=== PATIENT | male | born 1965 | race Caucasian/White ===

== ENCOUNTER 2017-03-02 20:16 | Inpatient (IN) | payer MEDICARE, MEDICAID ==
[2017-03-02] MEDS ORDERED: ACETAMINOPHEN 325 MG TABLET ONE ×2 (21:20→21:31)
[2017-03-02] MEDS ORDERED: ACETAMINOPHEN 325 MG TABLET PO ONE (21:22)
--- NOTE | 2017-03-02 21:28 | ERNOTE ---
Medical Problem HPI - Narrative Date of Service: 03/02/17 - General Chief Complaint: Fever Time Seen by Provider: 03/02/17 21:26 Source: patient Exam Limitations: no limitations - Immun/Allergies/Home Medications Immunizations: IMMUNIZATION HX Immunizations Up to Date Yes History of Influenza Vaccine Yes Hx Pneumococcal Vaccination Yes Allergies/Adverse Reactions: Allergies omeprazole Allergy (Verified 01/07/16 03:00) Home Medications: HOME MEDICATIONS Aspirin 325 mg PO DAILY 09/16/15 [Last Taken Unknown] Clopidogrel Bisulfate [Plavix] 75 mg PO DAILY 09/16/15 [Last Taken Unknown] Meclizine HCl [Antivert] 25 mg PO QID PRN #40 tab 09/19/15 [Last Taken Unknown] Famotidine 20 mg PO BID 01/07/16 [Last Taken Unknown] Glimepiride [Amaryl] 4 mg PO BID 01/07/16 [Last Taken 03/25/16 07:00] Lisinopril [Prinivil] 20 mg PO DAILY 01/07/16 [Last Taken Unknown] HYDROcodone/ACETAMINOPHEN [[place] 5-325] 1 - 2 tab PO Q6H PRN 03/25/16 [Last Taken Unknown] Insulin Glargine,Hum.rec.anlog [Lantus] 53 units SC BID 03/25/16 [Last Taken 07:00] Ciprofloxacin HCl [Cipro] 500 mg PO 03/02/17 [Last Taken Unknown] metroNIDAZOLE [Flagyl] 500 mg PO 03/02/17 [Last Taken Unknown] - History of Present History Narrative: HERE FOR WEAKNESS ,COUGH AND CONGESTION AND FEVER THAT HE SAYS JUST STARTED TODAY. HE DENIES KNOWN CONTACTS. HE DID HAVE SURGERY TO HIS RIGHT FOOT ON 14 FEBRUARY AT [facility] . HE HAS BEEN DOING HAVE OF THE DAILY DRESSING CHANGES AND SAYS HE HAS NOT NOTED ANY WORSENING. HE IS ON 2 ORAL ANTIBIOTICS STARTED A [facility] . HE THINKS ONE IS CIPRO. HE SOMETIMES COUGH TILL HE VOMITS. HE NO LONGER SMOKES. DENIES ABD PAINS. Review of Systems - Review of Systems Constitutional: Present: recent illness, fever, weakness EYE: Present: no symptoms reported ENT: Present: nose congestion Respiratory: Present: cough - WITH TUSSIVE EMESIS Cardiology: Present: no symptoms reported Gastrointestinal/Abdominal: Present: no symptoms reported Genitourinary: Present: no symptoms reported Musculoskeletal: Present: joint pain - RECENT FOOT SURGERY Neurological: Present: no symptoms reported Endocrine: Present: no symptoms reported Hematologic/Lymphatic: Present: no symptoms reported Psych: Present: no symptoms reported All Other Systems: All systems neg except as marked - Patient's Past Medical History Patient History - Medical: Diabetes Type 2 Insulin Dependent, GERD, Osteoporosis Patient History - Cardiac/Respiratory: Coronary Heart Disease, Hypertension, Myocardial Infarction, Peripheral Vascular Disease Patient History - Cancer: No Hx of Cancer Patient History - Surgical Procedures: Cholecystectomy, Cardiac stent, Other, Orthopedic Patient History - Other: None - Family History Mother Family History - Medical: Diabetes Type 2 Insulin Dependent Family History - Cardiac/Respiratory: No pertinent hx Father Family History - Medical: Family History - Cardiac/Respiratory: History Unknown - Social History Living Situations: home Abuse History: No History of abuse Psych History: No pertinent hx Smoking Status: Former smoker Have you smoked in the past 12 months: No Do you dip or chew tobacco: Yes Patient requests Smoking Cessation Consult: No Initiate information on Smoking Cessation: No Alcohol Use: none Drug Use: none - Immunizations Immunizations Up to Date: Yes Hx Pneumococcal Vaccination: Yes History of Influenza Vaccine: Yes Physical Exam - Physical Exam General Appearance: Present: wd/wn, alert, mild distress - febrile @38.5 with tachycardia Eye Exam: Normal inspection: bilateral, PERRL: bilateral, EOMI: bilateral Ears, Nose, Throat: Present: normal except -, nasal congestion Neck: Present: normal inspection, nontender Respiratory: Present: no respiratory distress, normal breath sounds, no accessory muscle use, chest nontender, lungs clear Cardiovascular/Chest: Present: no murmur, normal peripheral pulses, tachycardia Gastrointestinal/Abdominal: Present: normal bowel sounds, nontender, soft, no organomegaly Back Exam: Present: normal inspection, no CVA tenderness Extremity Exam: Present: other - HE HAS LEFT BKA AND BANDAGE TO RIGHT FOOT . WHEN REMOVED HE HAS A PARTIALLY DEHIESCED WOUND TO MEDIAL ASPECT SURROUNDED BY ERYTHEMA WITH NO PUS DRAINAGE. HE SAYS IT LOOKS THE SAME IT HAS WHEN HE CHANGES DRESSINGS. THERE IS NO ASCENDING STREAKING UP HIS ANKLE OR LEG. Neurological Exam: Present: alert, oriented Skin Exam: Present: warm/dry ED Progress - Results and Orders Patient's Lab Results:: I have reviewed the patient's lab results. Results and Orders: WBC = 12.5 WITH 89 SEGS, K+ = 3.3, LACTIC = 2.4, UA WITH + GLUC AND TRACE KETONE. - Vital Signs Patient's Vital Signs:: I have reviewed the patient's vital signs. Vital Signs: Vital Signs 03/02/17 20:20 Temperature 38.5 C H Pulse Rate 130 H Respiratory 22 H Rate Blood Pressure 113/66 O2 Sat by Pulse 100 Oximetry - X-Ray X-Ray #1 X-Ray: chest Interpretation: Interp. by me - LLL BASILAR INFILTRATE. - Progress/Reassessment Chief Complaint: Fever Plan - Plan Plan: WITH HOSPITALIST ANS SHE WILL SEE IN THE ER TO ADMIT. Departure - Departure Clinical Impression: Fever Qualifiers: Fever type: unspecified Qualified Code(s): R50.9 - Fever, unspecified Pneumonia Qualifiers: Pneumonia type: due to unspecified organism Laterality: left Lung location: lower lobe of lung Qualified Code(s): J18.1 - Lobar pneumonia, unspecified organism Sepsis Qualifiers: Sepsis type: sepsis due to unspecified organism Qualified Code(s): A41.9 - Sepsis, unspecified organism Disposition: [facility] Condition: Fair
[2017-03-02] MEDS: NORMAL SALINE 1,000 ML IV PRN ×3 (21:29→23:52)
[2017-03-02 21:36] LABS: Hematocrit 34.5 % (42.0-52.0); Hemoglobin 11.8 gm/dL (13.5-18.0); Mean Corpuscular Hemoglobin 29.4 pg (27-31); Mean Corpuscular Hgb Conc 34.2 g/dl (32-36); Platelet Count 295 K/mm3 (150-450); Red Blood Count 4.01 M/mm3 (4.7-6.0); Red Cell Distribution Width 13.5 % (11.5-14.0); White Blood Count 12.9 K/mm3 (4.0-10.5)
[2017-03-02 21:48] LABS: Albumin * 2.8 gm/dl (3.4-5.0); Anion Gap 12.9 mmol/L (6.8-13.8); BUN/Creatinine Ratio 9.4 (9.0-21.6); Bilirubin, Total 0.7 mg/dL (0.0-1.1); Ca. Corrected For Albumin 8.7 mg/dL (8.4-10.2); Calcium * 8.1 mg/dL (7.9-10.9); Carbon Dioxide 26.4 mmol/L (24-32.6); Potassium 3.3 mmol/L (3.4-4.6); Total Cells Counted 100; Total Protein 7.1 gm/dL (6.2-8.2)
[2017-03-02 21:52] LABS: Band 1 % (0-2.0); Lymphocyte 5 % (20-51); Monocyte 5 % (0-9); Neutrophil 89 % (42-75); Neutrophil # 11.5 K/mm3 (1.3-6.0); Platelet Estimate Normal (NORMAL); RBC Morphology Normal (NORMAL)
[2017-03-02] MEDS ORDERED: NORMAL SALINE 1,000 ML IV ONE (22:00)
[2017-03-02] MEDS ORDERED: ONDANSETRON HCL/PF 2 MG/ML VIAL IV ONE (22:00)
[2017-03-02] MEDS ORDERED: ONDANSETRON HCL/PF 2 MG/ML VIAL ONE (22:13)
--- OUTSIDE RECORDS SUMMARY | 2017-03-02 22:15 | XMS REPORT | CCD ---
:1965 Author Name JLUIS SIU Address [address] Unavailable [place], [place] [id number] Care Team Providers Name Role Phone FAVIAN BARTH Attending Physician Unavailable Vital Signs Unknown. Allergies Allergy Code Allergy Type Reaction Status CIPRO HC 0 Drug allergy (disorder) Active Procedures Procedure Code Procedure Type Date TSH 41060547 SNOMED CT 11/15/2013 LIPID PANEL 51411848 SNOMED CT 11/15/2013 GLYCOSYLATED HGB 579839496 SNOMED CT 11/15/2013 History of Immunizations Unknown. Problems Problem Code Start Date Resolved Date Status CHEST PRESSURE 17683136 05/21/2012 Active DIABETES MELLITUS 46441086 08/07/2011 Active BP (HIGH BLOOD PRESSURE) 78199254 Active DYSLIPIDEMIA 283878549 Active GASTRITIS 2408936 02/21/2012 Active CIGARETTE SMOKER 66066531 Active FRACTURE OF HUMERUS, DISTAL, CLOSED 442609527 09/08/2011 Active SUICIDAL IDEATIONS 0176627 10/02/2011 Active CONTUSION OF UPPER ARM 28261710 10/24/2011 Active ARM PAIN 414917023 11/22/2011 Active Pleurisy without mention of effusion or 892234411 07/10/2013 Active current tuberculosis MONOPLEGIA OF LOWER LIMB 17602 07/06/2012 Active Results COMPREHENSIVE METABOLIC PANEL Test Name Code Test Result Test Units Test Date/Time GLUCOSE 326.0000 mg/dL 11/15/2013 11:57 SODIUM 135.0000 mmol/L 11/15/2013 11:57 POTASSIUM 4.4000 mmol/L 11/15/2013 11:57 CHLORIDE 100.0000 mmol/L 11/15/2013 11:57 CO2 22.0000 mmol/L 11/15/2013 11:57 BUN 16.0000 mg/dL 11/15/2013 11:57 CREATININE 0.9000 mg/dL 11/15/2013 11:57 BUN/CREAT 17.8000 11/15/2013 11:57 CALCIUM 9.2000 mg/dL 11/15/2013 11:57 TOTAL BILI 0.6000 mg/dL 11/15/2013 11:57 TOTAL PROTEIN 8.1000 g/dL 11/15/2013 11:57 ALBUMIN 3.9000 g/dL 11/15/2013 11:57 A/G RATIO 0.9000 11/15/2013 11:57 ALKALINE PHOS 200.0000 IU/L 11/15/2013 11:57 AST/SGOT 16.0000 IU/L 11/15/2013 11:57 ALT/SGPT 32.0000 IU/L 11/15/2013 11:57 ANION GAP 17.4000 mmol/L 11/15/2013 11:57 AGE 47.0000 YEARS 11/15/2013 11:57 GFR 96.1300 ml/min 11/15/2013 11:57 CBC Test Name Code Test Result Test Units Test Date/Time WBC 6690-2 9.2000 K/uL 11/15/2013 11:57 RBC 789-8 5.5600 M/uL 11/15/2013 11:57 HEMOGLOBIN 718-7 16.0000 g/dL 11/15/2013 11:57 HEMATOCRIT 45.2000 % 11/15/2013 11:57 MCV 81.3000 fL 11/15/2013 11:57 MCH 28.8000 PG 11/15/2013 11:57 MCHC 35.4000 G/DL 11/15/2013 11:57 RDW-SD 38.8000 FL 11/15/2013 11:57 RDW-CV 13.2000 % 11/15/2013 11:57 PLATELETS 315.0000 K/UL 11/15/2013 11:57 MPV 9.1000 FL 11/15/2013 11:57 %GRAN 66.9000 % 11/15/2013 11:57 %LYMPH 24.0000 % 11/15/2013 11:57 %MONO 7.1000 % 11/15/2013 11:57 %EOS 1.6000 % 11/15/2013 11:57 %BASO 0.4000 % 11/15/2013 11:57 #GRAN 6.1400 K/UL 11/15/2013 11:57 #LYMPH 2.2000 K/UL 11/15/2013 11:57 #MONO 0.6500 K/UL 11/15/2013 11:57 #EOS 0.1500 K/UL 11/15/2013 11:57 #BASO 0.0400 K/UL 11/15/2013 11:57 SLIDE REVIEWED? NOT INDICATED N/A 11/15/2013 11:57 MANUAL DIFF NOT INDICATED N/A 11/15/2013 11:57 LIPID PANEL Test Name Code Test Result Test Units Test Date/Time CHOLESTEROL 2093-3 247.0000 mg/dL 11/15/2013 11:57 TRIGLYCERIDES 2571-8 577.0000 mg/dL 11/15/2013 11:57 HDL 2085-9 37.0000 mg/dL 11/15/2013 11:57 CHOL/HDL 9830-1 6.7000 11/15/2013 11:57 LDL COMMENT: CALCULATED LDL IS NOT APPROPRIATE N/A 11/15/2013 11:57 WHEN ` SPECIMENS HAVE A TRIGLYCERIDE N/A 11/15/2013 11:57 CONCENTRATIO `` GREATER THAN 400 MG/DL. DIRECT LDL N/A 11/15/2013 11:57 ``` CHOLESTEROL SHOULD BE REQUESTED N/A 11/15/2013 11:57 LDL 9-1 N/A N/A 11/15/2013 11:57 GLYCOSYLATED HGB Test Name Code Test Result Test Units Test Date/Time HA1c% 4548-4 10.1000 % 11/15/2013 11:57 eAG 243.0000 mg/dL 11/15/2013 11:57 TSH Test Name Code Test Result Test Units Test Date/Time TSH 3016-3 2.1130 uIU/ml 11/15/2013 11:57 Medications Unknown. Medications Administered Unknown. Encounters Encounter Diagnosis Diagnosis Code Start Date HYPERLIPIDEMIA NEC NOS 2724 11/15/2013 Social History Smoking Status Code Start Date End Date Current every day smoker 326241575 Patient Decision Aids Unknown. Instructions You were admitted to [facility] on 11/15/2013 with a principle diagnosis of HYPERLIPIDEMIA NEC NOS. You had the following tests done:LLKGSNSESQRSYDUGEXWLFKZGDFJYPDAPDQPXTCY-PZNKB-VHYRNPWZOTXTGL%GRAN%LYMPH% MONO%EOS%BASO#GRAN#LYMPH# MONO#EOS#BASOSLIDE REVIEWED?MANUAL BEFFEDPBNGRTNQVTULSUHXXYXZPPUPLTWKNW5DXXOKOIIITVHOKHI/CREATCALCIUMTOTAL BILITOTAL PROTEINALBUMINA/G RATIOALKALINE PHOSAST/SGOTALT/SGPTANION NGZJIPRVOPH5j% eAGCHOLESTEROLTRIGLYCERIDESLDL COMMENT:``````HDLLDLCHOL/HDLTSH You were discharged from [facility] on 11/15/2013. Should you have any questions prior to discharge, please contact a member of your healthcare team. If you have left the hospital and have any questions, please contact your primary care physician. Chief Complaint and Reason For Visit Unknown. Function Status Unknown. Plan of Care Unknown. Referral/Transition of Care Unknown.
--- OUTSIDE RECORDS SUMMARY | 2017-03-02 22:15 | XMS REPORT | CCD ---
:1965 Author Name GABINO HADDAD Address [address] [facility] Unavailable [place], [place] [phone] Care Team Providers Name Role Phone BERNARDO GAYTAN, LEILA WARD Attending Physician Unavailable LEILA CHANG MD Er Physician 1 Unavailable ARIANNA Butler Registered Nurse Unavailable Vital Signs Unknown. Allergies Allergy Code Allergy Type Reaction Status CIPRO HC 0 Drug allergy (disorder) Active Procedures Procedure Code Procedure Type Date INJECT INFUSE NEC 9929 ICD-9 CM, Volume 3 09/29/2013 INJECT INFUSE NEC 9929 ICD-9 CM, Volume 3 09/29/2013 History of Immunizations Unknown. Problems Problem Code Start Date Resolved Date Status CHEST PRESSURE 78585762 05/21/2012 Active DIABETES MELLITUS 42044412 08/07/2011 Active BP (HIGH BLOOD PRESSURE) 69534150 Active DYSLIPIDEMIA 237186772 Active GASTRITIS 7363767 02/21/2012 Active CIGARETTE SMOKER 83327105 Active FRACTURE OF HUMERUS, DISTAL, CLOSED 296685584 09/08/2011 Active SUICIDAL IDEATIONS 7751788 10/02/2011 Active CONTUSION OF UPPER ARM 87557273 10/24/2011 Active ARM PAIN 012868540 11/22/2011 Active Pleurisy without mention of effusion or 661846401 07/10/2013 Active current tuberculosis MONOPLEGIA OF LOWER LIMB 22693 07/06/2012 Active Results Unknown. Medications Medication Code Dose Units Frequency Route Modification Start Stop Date/Time Date/Time Hydrocodone 203326 2 EACH Every 4hr ORAL Bitart/Acet as needed 325MG-5MG Oral Tablet TRICORE 0 HIGH BLOOD 0 PRESSURE Humalog 824360 30 EACH Twice a SUBCUTAN 100U/ML day EOUS Subcutaneous Suspension Humalog 575623 SCALE EACH Three SUBCUTAN 100U/ML times a EOUS Subcutaneous day Suspension Humalog 879489 36 UNITS Daily SUBCUTAN 100U/ML EOUS Subcutaneous Suspension LANTUS 0 50 UNIT Twice a SUBCUTAN INSULIN day EOUSLY Zantac 150MG 374150 150 MILLIGRA As needed ORAL Oral Tablet MS Aspirin 81MG 726402 2 TAB Daily ORAL Oral Tablet DEPRESSION 0 MED Medications Administered Unknown. Encounters Encounter Diagnosis Diagnosis Code Start Date UNSPECIFIED DENTAL CARIES 98136 09/29/2013 Social History Smoking Status Code Start Date End Date Unknown if ever smoked 292185003 Patient Decision Aids Unknown. Instructions You were admitted to [facility] on 09/29/2013 with a principle diagnosis of UNSPECIFIED DENTAL CARIES. You had the following procedures done:INJECT INFUSE NECINJECT INFUSE NEC You were discharged from [facility] on 09/29/2013. Should you have any questions prior to discharge, please contact a member of your healthcare team. If you have left the hospital and have any questions, please contact your primary care physician. Chief Complaint and Reason For Visit Chief Complaint Date of Onset DENTAL PAIN Function Status Unknown. Plan of Care Unknown. Referral/Transition of Care Unknown.
--- OUTSIDE RECORDS SUMMARY | 2017-03-02 22:15 | XMS REPORT | CCD ---
:1965 Author Name GABINO HADDAD Address [address] [facility] Unavailable [place], [place] [phone] Care Team Providers Name Role Phone BERNARDO [...] Start Date Resolved Date Status CHEST PRESSURE 44044182 05/21/2012 Active DIABETES MELLITUS 72309447 08/07/2011 Active BP (HIGH BLOOD PRESSURE) 21674675 Active DYSLIPIDEMIA 180780241 Active GASTRITIS 1240623 02/21/2012 Active CIGARETTE SMOKER 89464172 Active FRACTURE OF HUMERUS, DISTAL, CLOSED 750815343 09/08/2011 Active SUICIDAL IDEATIONS 5717026 10/02/2011 Active CONTUSION OF UPPER ARM 78721281 10/24/2011 Active ARM PAIN 989371403 11/22/2011 Active Pleurisy without mention of effusion or 743442492 07/10/2013 Active current tuberculosis MONOPLEGIA OF LOWER LIMB 96352 07/06/2012 Active Results Unknown. Medications Medication Code Dose Units Frequency Route Modification Start Stop Date/Time Date/Time Hydrocodone 131106 2 EACH Every 4hr ORAL Bitart/Acet as needed 325MG-5MG Oral Tablet TRICORE 0 HIGH BLOOD 0 PRESSURE Humalog 686247 30 EACH Twice a SUBCUTAN 100U/ML day EOUS Subcutaneous Suspension Humalog 186404 SCALE EACH Three SUBCUTAN 100U/ML times a EOUS Subcutaneous day Suspension Humalog 511656 36 UNITS Daily SUBCUTAN 100U/ML EOUS Subcutaneous Suspension LANTUS 0 50 UNIT Twice a SUBCUTAN INSULIN day EOUSLY Zantac 150MG 607320 150 MILLIGRA As needed ORAL Oral Tablet MS Aspirin 81MG 389631 2 TAB Daily ORAL Oral Tablet DEPRESSION 0 MED Medications Administered Unknown. Encounters Encounter Diagnosis Diagnosis Code Start Date UNSPECIFIED DENTAL CARIES 18032 09/29/2013 Social History Smoking Status Code Start Date End Date Unknown if ever smoked 523117855 Patient Decision Aids Unknown. Instructions You were admitted to [facility] on 09/29/2013 with a principle diagnosis of UNSPECIFIED DENTAL CARIES. You had the following procedures done:INJECT INFUSE NECINJECT INFUSE NEC You were discharged from [facility] on 09/29/2013. Should you have any questions [...]
--- OUTSIDE RECORDS SUMMARY | 2017-03-02 22:15 | XMS REPORT | Continuity of Care Document ---
:1965 Author Organization [facility] ([facility]) Address [address] [place] [address] Phone [phone] Care Team Providers Name Role Phone CareyAnnika Primary Care Provider [phone] Source Comments This disclosure is being made pursuant to the Care Everywhere program, applicable federal and state laws, and may not contain all informaitonavailable regarding this patient.[facility] ([facility]) Active Allergies and Adverse Reactions Allergen Noted Date Severity Reactions Comments Omeprazole 07/27/2009 Renal failure AIN. Current Medications Prescription Sig. Disp. Refills Start Date End Date Status lisinopril 20 mg Take 20 mg by mouth Active tablet daily. Indications: HYPERTENSION CLOPIDOGREL BISULFATE Take 75 mg by mouth Active (PLAVIX PO) daily aspirin 325 mg tablet Take 325 mg by mouth Active daily famotidine 20 mg Take 20 mg by mouth as Active tablet needed. insulin glargine Inject 50 Units Active (LanTUS) 100 unit/mL subcutaneously at injection vial bedtime . insulin glargine Inject 45 Units Active (LanTUS) 100 unit/mL subcutaneously daily . injection vial omega-3 fatty acids Take 1,000 mg by mouth Active 1,000 mg capsule daily meclizine 25 mg Take 25 mg by mouth 4 Active tablet times daily as needed. glimepiride 4 mg 1 tablet daily. 5 03/15/2016 Active tablet PREGABALIN (LYRICA Take by mouth 2 times Active PO) daily. insulin degludec Inject 104 Units Active (TRESIBA FLEXTOUCH subcutaneously at U-100) 100 unit/mL (3 bedtime. mL) inpn Active Problems Problem Noted Date HTN (hypertension) 12/15/2015 GERD (gastroesophageal reflux disease) 12/15/2015 Coronary artery disease involving crow coronary artery of crow heart 12/13 with angina pectoris (3 coronary stents Fall 2014) Type 1 diabetes mellitus with circulatory complication, diagnosis about 2015 Preop cardiovascular exam 10/24/2015 Headache(784.0) 09/16/2015 Left arm numbness 09/16/2015 Left arm weakness 09/16/2015 Left-sided weakness 09/16/2015 Cellulitis 04/05/2015 Overview: Cellulitis of bka stump Numbness in right leg 08/30/2014 Weakness of right leg 08/27/2014 Wound dorsum of Rt foot 04/20/2013 Humerus distal fracture 01/05/2013 Wound infection after surgery 12/18/2012 Below knee amputation status 12/04/2012 Cellulitis of foot 09/26/2012 Lower extremity weakness 07/07/2012 Hypertension 07/07/2012 Hyperlipidemia 07/07/2012 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 Background diabetic retinopathy(362.01) 05/30/2011 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 Resolved Problems Problem Noted Date Resolved Date Diabetic foot infection 11/18/2012 01/27/2013 Diabetes mellitus 09/26/2012 01/27/2013 Pain in limb 12/20/2011 01/27/2013 Other physical therapy 12/20/2011 01/02/2012 Nausea with vomiting 05/22/2011 01/02/2012 Chest pain, unspecified 04/13/2011 01/02/2012 Pain in joint, lower leg 03/07/2010 01/27/2013 Other physical therapy 03/07/2010 01/02/2012 Immunizations Name Dates Previously Given Next Due Influenza 07/27/2009 Influenza, PF 10/29/2012 Pneumococcal Polysaccharide, PPSV23 (Pneumovax 23) 07/27/2009 Tdap 10/26/2010 Social History Tobacco Use Types Packs/Day Years Used Date Light Tobacco Smoker 3 6 Smokeless Tobacco: Current User Snuff, Chew Tobacco Cessation:Counseling Given: Yes Comments:quit in 2003 after 80pyh; started smoking again last week of November,, 2 cigs/d Alcohol Use Drinks/Week oz/Week Comments No 0 Standard drinks or equivalent 0.0 Last Filed Vital Signs Vital Sign Reading Time Taken Blood Pressure 129/77 12/18/2015 11:07 AM INSTRUMENT REPAIR TECHNICIAN Pulse 94 12/18/2015 11:07 AM INSTRUMENT REPAIR TECHNICIAN Temperature 36.5 C (97.7 F) 12/18/2015 11:07 AM INSTRUMENT REPAIR TECHNICIAN Respiratory Rate 16 09/16/2015 6:41 PM INSTRUMENT REPAIR TECHNICIAN Height 1.827 m (5' 11.93") 12/18/2015 11:07 AM INSTRUMENT REPAIR TECHNICIAN Weight 97.523 kg (215 lb) 12/18/2015 11:07 AM INSTRUMENT REPAIR TECHNICIAN Body Mass Index 29.22 12/18/2015 11:07 AM INSTRUMENT REPAIR TECHNICIAN Oxygen Saturation 98% 12/18/2015 11:07 AM INSTRUMENT REPAIR TECHNICIAN Plan of Care Patient Goal Type Goal Lifestyle Quit smoking / using tobacco Date Type Specialty Providers Description 04/03/2017 Appointment Orthopaedic Kip Farias MD Subj: Appointment [address] [place] [address] [phone] (Fax) Health Maintenance Due Date Last Done Comments Hepatitis B Vaccine ( - 1965 Primary Series) MMR Vaccine 12/28/1983 DIABETIC: Foot Exam 11/07/2012 11/07/2011, 11/07/2011 DIABETIC: Retinal Eye Exam 12/24/2012 12/25/2011 DIABETIC: Microalbumin 10/29/2013 10/29/2012, Additional history exists 06/25/2012, 01/02/2012 Colonoscopy 2015 Prostate Cancer Screening 12/28/2015 DIABETIC: Hemoglobin A1C 06/19/2016 12/18/2015, Additional history exists 09/17/2015, 08/30/2014 DIABETIC: Cholesterol 09/17/2016 09/17/2015, Additional history exists 10/29/2012, 07/08/2012 Diabetic: Hdl 09/17/2016 09/17/2015, Additional history exists 10/29/2012, 07/08/2012 Diabetic: Ldl 09/17/2016 09/17/2015, Additional history exists 10/29/2012, 09/25/2012 DIABETIC: Triglycerides 09/17/2016 09/17/2015, Additional history exists 10/29/2012, 07/08/2012 Influenza Vaccine: Seasonal 05/13/2017 10/29/2012, (Season Ended) 2009 Td Vaccine 10/26/2020 10/26/2010 Pneumococcal Vaccine Completed 07/27/2009 Tdap Vaccine Completed 10/26/2010 Results from Last 3 Months Not on file
--- OUTSIDE RECORDS SUMMARY | 2017-03-02 22:15 | XMS REPORT | CCD ---
:1965 Author Name JLUIS SIU Address [address] Unavailable [place], [place] [phone] Care Team Providers Name Role Phone FAVIAN BARTH Attending Physician Unavailable Vital Signs Unknown or Not Available. Allergies Allergy Code Allergy Type [facility] Drug allergy Active Procedures Unknown or Not Available. History of Immunizations Unknown or Not Available. Problems Problem Code Start Date Resolved Date Status CHEST PRESSURE 23062070 05/21/2012 Active DIABETES MELLITUS 15670415 08/07/2011 Active BP (HIGH BLOOD PRESSURE) 51894171 Active DYSLIPIDEMIA 584402403 Active CIGARETTE SMOKER 15772358 Active FRACTURE OF HUMERUS, DISTAL, CLOSED 634177790 09/08/2011 Active SUICIDAL IDEATIONS 1636384 10/02/2011 Active CONTUSION OF UPPER ARM 59570290 10/24/2011 Active ARM PAIN 992217588 11/22/2011 Active GASTRITIS 3405476 02/21/2012 Active MONOPLEGIA OF LOWER LIMB 20655 07/06/2012 Active Pleurisy without mention of effusion or 144496344 07/10/2013 Active current tuberculosis Results Unknown or Not Available. Medications Unknown or Not Available. Medications Administered Unknown or Not Available. Encounters Encounter Diagnosis Diagnosis Code Start Date PAIN IN LIMB 7295 04/29/2014 Social History Smoking Status Code Start Date End Date Current every day smoker 655130488 Patient Decision Aids Unknown or Not Available. Discharge Instructions You were admitted to [facility] on 04/29/2014 with a principal diagnosis of PAIN IN LIMB. You had the following procedures done:DX ULTRASOUND-VASCULAR You were discharged from [facility] on 04/29/2014. Should you have any questions prior to discharge, please contact a member of your healthcare team. If you have left the hospital and have any questions, please contact your primary care physician. Chief Complaint and Reason For Visit Unknown or Not Available. Function Status Unknown or Not Available. Plan of Care Unknown or Not Available. Referral/Transition of Care Unknown or Not Available.
[2017-03-02 22:24] LABS: Urine Bilirubin Negative (NEGATIVE); Urine Blood 50 /ul (NEGATIVE); Urine Ketone 5 mg/dL (NEGATIVE); Urine Nitrite Negative (NEGATIVE); Urine Protein 100 mg/dL (NEGATIVE); Urine Specific Gravity 1.025 SP.GR. (1.005-1.030); Urine Urobilinogen Normal (NORMAL)
[2017-03-02 22:35] LABS: Urine Appearance Clear; Urine Bacteria TRACE; Urine Color Dark Yellow; Urine RBC None Seen /hpf (0-5); Urine WBC None Seen /hpf (0-5)
[2017-03-02 22:36] LABS: Urine Fine Granular Cast 0-5 /LPF
[2017-03-02] MEDS: LEVOFLOXACIN/D5W 750 MG/150 ML BAG IV SCH (23:06)
--- OUTSIDE RECORDS SUMMARY | 2017-03-02 23:19 | XMS REPORT | Continuity of Care Document ---
:1965 Author Organization [facility] ([facility]) Address [address] [place] [address] Phone [phone] Care Team Providers Name Role Phone CareyAnnika Primary Care Provider [phone] Source Comments This disclosure is being made pursuant to the Care Everywhere program, applicable federal and state laws, and may not contain all informaitonavailable regarding this patient.[facility] ([facility]) Active Allergies and Adverse Reactions Allergen Noted [...] reflux disease) 12/15/2015 Coronary artery disease involving circle coronary artery of circle heart 12/13 with angina pectoris (3 coronary [...] Taken Blood Pressure 129/77 12/18/2015 11:07 AM PLACEMENT SECRETARY Pulse 94 12/18/2015 11:07 AM PLACEMENT SECRETARY Temperature 36.5 C (97.7 F) 12/18/2015 11:07 AM PLACEMENT SECRETARY Respiratory Rate 16 09/16/2015 6:41 PM PLACEMENT SECRETARY Height 1.827 m (5' 11.93") 12/18/2015 11:07 AM PLACEMENT SECRETARY Weight 97.523 kg (215 lb) 12/18/2015 11:07 AM PLACEMENT SECRETARY Body Mass Index 29.22 12/18/2015 11:07 AM PLACEMENT SECRETARY Oxygen Saturation 98% 12/18/2015 11:07 AM PLACEMENT SECRETARY Plan of Care Patient Goal Type Goal Lifestyle Quit smoking / using tobacco Date Type Specialty Providers Description 04/03/2017 Appointment Orthopaedic Kip Farias MD Subj: Appointment [address] [place] [address] [phone] (Fax) Health Maintenance Due Date Last Done [...]
[2017-03-02] MEDS ORDERED: VANCOMYCIN HCL 1.5 GM in DEXTROSE 5 % IN WATER 500 ML IV SCH ×2 (23:30)
[2017-03-03] MEDS ORDERED: POTASSIUM CHLORIDE 20 MEQ TABLET.SA PO ONE (00:17)
--- NOTE | 2017-03-03 00:26 | HP ---
<Symone Godinez - Last Filed: 03/03/17 07:26> Chief Complaint - Chief Complaint Date of Service: 03/03/17 Time of Service: 00:24 Chief Complaint: " Dizziness, Coughing". Source of HPI- Pt reliable, ER provider report. History of Present Illness: Mr. Puentes is a 51-yr-old WM who receives his primary care at the [facility] in [place]. His PMH involves: CVA, DM II (Poorly Controlled), CAD; s/p PTCA & Stents. LT BKA, Kidney Stone. Pt states that he had been in his normal health until Friday 03/02 when he begun feeling dizzy at around 02.00 am. The dizziness gave him the 'sensation of room spinning.' He stayed in bed most of the day on Friday. He also reports having a cough that has been progressively getting worse for the last two days. He coughs up mostly white/ruiz phlegm. He denies feeling SOB and no pain with inspiration and expiration. He did have a fever last night that was over 100, but cannot recall the value exactly. He says that he got tired of feeling sick today and he called the EMS, & was brought to the [facility] ER. Off note, he has Diabetic ulcer on RT foot and he underwent Toe Amputation In October 2016 at the [facility]. He is followed by their Podiatry Dr. Sadia Sarabia. On 02/14, he was admitted again at the [facility] for cellulitis in addition to a non-healing diabetic ulcer on RT foot. X-ray and MRI obtained in that hospitalization did not demonstrate Osteomyelitis. Pt reports that he was started on Oral Antibiotics (unsure but thinks Cipro & Flagyl) along with local wound care one week later. On Exam, he is noted to have erythema on the RT foot and a tunneling wound with serosanguinous drainage. During evaluation at the ED tonight, CXR obtained showed he had LLL Pneumonia. He was also found to be febrile with a temp of 39.4 and tachycardic. He had an elevated WBC of 12,900 with a Left Shift and Lactic Acid of 2.4. The inflammatory markers involving CRP & ESR were elevated at 19.8 & 63. No imaging of RT foot pending. Pt will need to be admitted inpatient for a minimum of 2 midnights due to Sepsis secondary to Pneumonia, Cellulitis of RT Foot, & Possible Osteomyelitis of the RT foot with requires further evaluation and treatment. - Patient's Past Medical History Patient History - Medical: Diabetes Type 2 Insulin Dependent, GERD, Osteoporosis Patient History - Cardiac/Respiratory: Coronary Heart Disease, Hypertension, Myocardial Infarction, Peripheral Vascular Disease Patient History - Cancer: No Hx of Cancer Patient History - Surgical Procedures: Cholecystectomy, Cardiac stent, Other, Orthopedic Patient History - Other: None - Family History Mother Family History - Medical: Diabetes Type 2 Insulin Dependent Family History - Cardiac/Respiratory: No pertinent hx Father Family History - Medical: Family History - Cardiac/Respiratory: History Unknown - Social History Living Situations: home Abuse History: No History of abuse Psych History: No pertinent hx Smoking Status: Former smoker Have you smoked in the past 12 months: No Do you dip or chew tobacco: Yes Patient requests Smoking Cessation Consult: No Initiate information on Smoking Cessation: No Alcohol Use: none Drug Use: none - Immunizations Immunizations Up to Date: Yes Hx Pneumococcal Vaccination: Yes History of Influenza Vaccine: Yes Immunizations: IMMUNIZATION HX Immunizations Up to Date Yes History of Influenza Vaccine Yes Hx Pneumococcal Vaccination Yes Allergies/Adverse Reactions: Allergies Allergy/AdvReac Type Severity Reaction Status Date / Time omeprazole Allergy Verified 01/07/16 03:00 Home Medications: HOME MEDICATIONS RX: Aspirin 325 mg PO DAILY 09/16/15 [Last Taken Unknown] RX: Clopidogrel Bisulfate [Plavix] 75 mg PO DAILY 09/16/15 [Last Taken Unknown] RX: Meclizine HCl [Antivert] 25 mg PO QID PRN #40 tab 09/19/15 [Last Taken Unknown] RX: Famotidine 20 mg PO BID 01/07/16 [Last Taken Unknown] RX: Glimepiride [Amaryl] 4 mg PO BID 01/07/16 [Last Taken 03/25/16 07:00] RX: Lisinopril [Prinivil] 20 mg PO DAILY 01/07/16 [Last Taken Unknown] HYDROcodone/ACETAMINOPHEN [Lynd 5-325] 1 - 2 tab PO Q6H PRN 03/25/16 [Last Taken Unknown] RX: Insulin Glargine,Hum.rec.anlog [Lantus] 53 units SC BID 03/25/16 [Last Taken 03/25/16 07:00] Ciprofloxacin HCl [Cipro] 500 mg PO 03/02/17 [Last Taken Unknown] metroNIDAZOLE [Flagyl] 500 mg PO 03/02/17 [Last Taken Unknown] Exam - Exam Vital Signs: Vital Signs - Last Taken Temp 37.9 C H 03/02/17 23:53 Pulse 99 03/02/17 23:53 Resp 22 H 03/02/17 23:53 BP 103/58 03/02/17 23:53 Pulse Ox 100 03/02/17 23:53 Constitutional: Present: Alert, Oriented x3, No distress ENT Exam: Present: normal ENT inspection, dry mucous membranes. Absent: nasal congestion, nasal drainage Eye Exam: bilateral eye: normal inspection, PERRL Neck: Present: full range of motion, supple, normal inspection, trachea midline Back Exam: Present: normal inspection, no CVA tenderness Respiratory: Present: no accessory muscle use, rales, No wheezing, other - LT base Cardiovascular/Chest: Present: no murmur, tachycardia Abdomen: Present: Normal bowel sounds, soft, nontender /Rectal: Present: Exam deferred Extremity: Present: other - LT BKA, RT foot Erythema with 1 & 2 toe amputation, induration/tunneling ulcer on Lateral aspect of foot with serosanguinous drainage. Skin Exam: Present: no cyanosis, other - Erythema on RT foot Lymphatic: Present: no adenopathy Neurologic: Present: no motor/sensory deficits, alert, oriented x 3, dizzy/light -headedness Appearance: Present: appropriate insight, disheveled Eye contact: Present: normal speech, uncooperative Thoughts: Present: no apparent hallucination Diagnostic Studies: Laboratory Results WBC 12.9 K/mm3 (4.0-10.5) H 03/02/17 21:30 RBC 4.01 M/mm3 (4.7-6.0) L 03/02/17 21:30 Hgb 11.8 gm/dL (13.5-18.0) L 03/02/17 21:30 Hct 34.5 % (42.0-52.0) L 03/02/17 21:30 MCV 86.0 fl (78-100) 03/02/17 21:30 MCH 29.4 pg (27-31) 03/02/17 21:30 MCHC 34.2 g/dl (32-36) 03/02/17 21:30 RDW 13.5 % (11.5-14.0) 03/02/17 21:30 Plt Count 295 K/mm3 (150-450) 03/02/17 21:30 MPV No Print 03/02/17 21:30 Neutrophils % (Manual) 89 % (42-75) H 03/02/17 21:30 Band Neuts % (Manual) 1 % (0-2.0) 03/02/17 21:30 Lymphocytes % (Manual) 5 % (20-51) L 03/02/17 21:30 Monocytes % (Manual) 5 % (0-9) 03/02/17 21:30 Neutrophils # (Manual) 11.5 K/mm3 (1.3-6.0) H 03/02/17 21:30 Lymphocytes # (Manual) 0.6 k/mm3 (1.5-3.5) L 03/02/17 21:30 Monocytes # (Manual) 0.6 k/mm3 (0.0-1.0) 03/02/17 21:30 Platelet Estimate Normal (NORMAL) 03/02/17 21:30 RBC Morphology Normal (NORMAL) 03/02/17 21:30 Sodium 136 mmol/L (132-142) 03/02/17 21:30 Plasma Sodium 138 mmol/L (130-142) 03/02/17 21:30 Potassium 3.3 mmol/L (3.4-4.6) L 03/02/17 21:30 Chloride 100 mmol/L (97-106) 03/02/17 21:30 Carbon Dioxide 26.4 mmol/L (24-32.6) 03/02/17 21:30 Anion Gap 12.9 mmol/L (6.8-13.8) 03/02/17 21:30 BUN 12 mg/dL (6-23) 03/02/17 21:30 Creatinine 1.28 mg/dL (0.4-1.4) 03/02/17 21:30 Est GFR (Non-Af Amer) 63 mL/min (60-130) 03/02/17 21:30 BUN/Creatinine Ratio 9.4 (9.0-21.6) 03/02/17 21:30 Random Glucose 195 mg/dL (70-110) H 03/02/17 21:30 Lactic Acid, Venous 2.4 mmol/L (0.4-1.9) H* 03/02/17 21:30 Calcium 8.1 mg/dL (7.9-10.9) 03/02/17: Calcium Adj for Albumin 8.7 mg/dL (8.4-10.2) 03/02/17: Total Bilirubin 0.7 mg/dL (0.0-1.1) 03/02/17: AST 15 U/L (0-48) 03/02/17: ALT 19 U/L (19-67) 03/02/17: Alkaline Phosphatase 108 U/L (50-170) 03/02/17: Total Protein 7.1 gm/dL (6.2-8.2) 03/02/17: Albumin 2.8 gm/dl (3.4-5.0) L 03/02/17: Procalcitonin 0.26 ng/mL (0.05-0.50) 03/02/17: Urine Color Dark yellow 03/02/17 22:00 Urine Appearance Clear 03/02/17 22:00 Urine pH 6.0 pH (5.0-7.0) 03/02/17 22:00 Ur Specific [place] 1.025 SP.GR. (1.005-1.030) 03/02/17 22:00 Urine Protein 100 mg/dL (NEGATIVE) H 03/02/17 22:00 Urine Glucose (UA) >=1000 mg/dL (NEGATIVE) H 03/02/17 22:00 Urine Clinitest 4+ (300mg/dl)or more mg/dL (NEGATIVE) H 03/02/17 22:00 Urine Ketones 5 mg/dL (NEGATIVE) 03/02/17 22:00 Urine Blood 50 /ul (NEGATIVE) H 03/02/17 22:00 Urine Nitrate Negative (NEGATIVE) 03/02/17 22:00 Urine Bilirubin Negative mg/dl (NEGATIVE) 03/02/17 22:00 Prot Sulfosalicylic Acd 2+ mg/dL (0) H 03/02/17 22:00 Urine Urobilinogen Normal EU/dl (NORMAL) 03/02/17 22:00 Ur Leukocyte Esterase Negative /ul (NEGATIVE) 03/02/17 22:00 Urine RBC None seen /hpf (0-5) 03/02/17 22:00 Urine WBC None seen /hpf (0-5) 03/02/17 22:00 Ur Epithelial Cells 0-5 /hpf (0-5) 03/02/17 22:00 Urine Bacteria Trace (NONE) 03/02/17 22:00 Fine Granular Casts 0-5 /LPF (NONE) H 03/02/17 22:00 Urine Culture Comments No culture indicated 03/02/17 22:00 Assessment/Plan - Assessment/Plan (1) Sepsis Assessment: Pt presented with fevers, tachycardia, elevated WBC with a Left shift and lactic acid of 2.4. Source of infection- Pneumonia or chronic diabetic ulcer wound on RT foot. Treated according to Sepsis protocol; IVF hydration, Broad Spectrum Antibiotics,Monitor serum Lactate. Problem: Acute (2) Pneumonia Assessment: The CXR showed LLL Pneumonia. Will cover with Levaquin due to a recent antibiotic use and cormorbidities involving DM II, and also to provide coverage for CAP Pathogens. Collect sputum culture, check for Urine Legionella and Step Ag urine. Push cornet/ IS use. Problem: Acute QualifierTitle: Laterality: left Lung location: lower lobe of lung (3) Cellulitis Assessment: RT foot noted to have Erythema and Hotness. Will cover with Vancomycin due to fevers, elevated WBC with a Left shift and elevated ESR and CRP. Will switch to the appropriate antibiotics once culture results. Problem: Acute (4) Diabetic foot ulcer Assessment: Has a non healing wound on RT foot that is tunneling, with Serosanguinous drainage. Culture of the wound collected. Cover with Vancomycin for now. ESR/ CRP Elevated at 63/19.8. May need MRI of the foot. Will consult Podiatry in am. Problem: Acute (5) Diabetes Assessment: ACHS accuccheck. Hold Glimepiride and start SSI and continue with Long acting insulin for better blood glucose control during infection. Problem: Chronic QualifierTitle: Diabetes mellitus type: type 2 Diabetes mellitus complication status: with circulatory complication (6) HTN (hypertension) Assessment: Stable - On Lisinopril Problem: Chronic QualifierTitle: Hypertension type: essential hypertension Qualified Code( s): I10 - Essential (primary) hypertension (7) CVA (cerebral vascular accident) Assessment: Stable - Continue Aspirin & Plavix. Problem: Chronic <RashawnHussainBill guerra - Last Filed: 03/03/17 13:19> Immunizations: IMMUNIZATION HX Immunizations Up to Date Yes History of Influenza Vaccine Yes Hx Pneumococcal Vaccination Yes Exam - Exam Vital Signs: Vital Signs - Last Taken Temp 37.4 C 03/03/17 10:30 Pulse 101 H 03/03/17 10:30 Resp 22 H 03/03/17 10:30 BP 68/42 03/03/17 10:30 Pulse Ox 97 03/03/17 10:30 Diagnostic Studies: Abnormal Lab Results 03/03/17 03/03/17 03/03/17 Range/Units 01:00 04:50 04:50 RBC 3.42 L (4.7-6.0) M/mm3 Hgb 10.1 L (13.5-18.0) gm/dL Hct 29.6 L (42.0-52.0) % RDW 14.4 H (11.5-14.0) % Neutrophils % (Manual) 88 H (42-75) % Band Neuts % (Manual) 6 H (0-2.0) % Lymphocytes % (Manual) 3 L (20-51) % Neutrophils # (Manual) 7.7 H (1.3-6.0) K/mm3 Lymphocytes # (Manual) 0.3 L (1.5-3.5) k/mm3 ESR 63 H (0-10) mm/hr PT (9.4-11.4) Seconds INR (Anticoag Therapy) (0.90-1.10) INR Potassium 2.9 L (3.4-4.6) mmol/L BUN/Creatinine Ratio 8.8 L (9.0-21.6) Random Glucose 153 H (70-110) mg/dL Calcium 7.4 L (7.9-10.9) mg/dL Calcium Adj for Albumin (8.4-10.2) mg/dL Total Protein (6.2-8.2) gm/dL Albumin (3.4-5.0) gm/dl 03/03/17 03/03/17 03/03/17 Range/Units 10:43 10:43 10:43 RBC 3.38 L (4.7-6.0) M/mm3 Hgb 10.0 L (13.5-18.0) gm/dL Hct 29.1 L (42.0-52.0) % RDW (11.5-14.0) % Neutrophils % (Manual) 86 H (42-75) % Band Neuts % (Manual) 3 H (0-2.0) % Lymphocytes % (Manual) 11 L (20-51) % Neutrophils # (Manual) 7.6 H (1.3-6.0) K/mm3 Lymphocytes # (Manual) 1.0 L (1.5-3.5) k/mm3 ESR (0-10) mm/hr PT 11.6 H (9.4-11.4) Seconds INR (Anticoag Therapy) 1.12 H (0.90-1.10) INR Potassium 3.2 L (3.4-4.6) mmol/L BUN/Creatinine Ratio 8.1 L (9.0-21.6) Random Glucose (70-110) mg/dL Calcium 7.2 L (7.9-10.9) mg/dL Calcium Adj for Albumin 8.3 L (8.4-10.2) mg/dL Total Protein 5.9 L (6.2-8.2) gm/dL Albumin 2.2 L (3.4-5.0) gm/dl Laboratory Results WBC 8.8 K/mm3 (4.0-10.5) 03/03/17 10:43 RBC 3.38 M/mm3 (4.7-6.0) L 03/03/17 10:43 Hgb 10.0 gm/dL (13.5-18.0) L 03/03/17 10:43 Hct 29.1 % (42.0-52.0) L 03/03/17 10:43 MCV 86.1 fl (78-100) 03/03/17 10:43 MCH 29.6 pg (27-31) 03/03/17 10:43 MCHC 34.4 g/dl (32-36) 03/03/17 10:43 RDW 13.5 % (11.5-14.0) 03/03/17 10:43 Plt Count 251 K/mm3 (150-450) 03/03/17 10:43 MPV 8.6 fl (6.0-9.5) 03/03/17 04:50 Neutrophils % (Manual) 86 % (42-75) H 03/03/17 10:43 Band Neuts % (Manual) 3 % (0-2.0) H 03/03/17 10:43 Lymphocytes % (Manual) 11 % (20-51) L 03/03/17 10:43 Monocytes % (Manual) 3 % (0-9) 03/03/17 04:50 Neutrophils # (Manual) 7.6 K/mm3 (1.3-6.0) H 03/03/17 10:43 Lymphocytes # (Manual) 1.0 k/mm3 (1.5-3.5) L 03/03/17 10:43 Monocytes # (Manual) 0.3 k/mm3 (0.0-1.0) 03/03/17 04:50 Platelet Estimate Normal (NORMAL) 03/03/17 10:43 RBC Morphology Normal (NORMAL) 03/03/17 10:43 Polychromasia 1+ 03/03/17 04:50 Basophilic Stippling 1+ 03/03/17 04:50 ESR 63 mm/hr (0-10) H 03/03/17 01:00 PT 11.6 Seconds (9.4-11.4) H 03/03/17 10:43 INR (Anticoag Therapy) 1.12 INR (0.90-1.10) H 03/03/17 10:43 PTT ([place]) 31.5 Seconds (24-32) 03/03/17 10:43 Sodium 138 mmol/L (132-142) 03/03/17 10:43 Plasma Sodium 138 mmol/L (130-142) 03/03/17 10:43 Potassium 3.2 mmol/L (3.4-4.6) L 03/03/17 10:43 Chloride 104 mmol/L (97-106) 03/03/17 10:43 Carbon Dioxide 24.1 mmol/L (24-32.6) 03/03/17 10:43 Anion Gap 13.1 mmol/L (6.8-13.8) 03/03/17 10:43 BUN 10 mg/dL (6-23) 03/03/17 10:43 Creatinine 1.23 mg/dL (0.4-1.4) 03/03/17 10:43 Est GFR (Non-Af Amer) 66 mL/min (60-130) 03/03/17 10:43 BUN/Creatinine Ratio 8.1 (9.0-21.6) L 03/03/17 10:43 Random Glucose 107 mg/dL (70-110) D 03/03/17 10:43 Lactic Acid, Venous 0.9 mmol/L (0.4-1.9) 03/03/17 10:43 Calcium 7.2 mg/dL (7.9-10.9) L 03/03/17 10:43 Calcium Adj for Albumin 8.3 mg/dL (8.4-10.2) L 03/03/17 10:43 Total Bilirubin 0.5 mg/dL (0.0-1.1) 03/03/17 10:43 AST 24 U/L (0-48) 03/03/17 10:43 ALT 20 U/L (19-67) 03/03/17 10:43 Alkaline Phosphatase 85 U/L (50-170) 03/03/17 10:43 Troponin I Less than 0.017 ng/ml (0.00-0.10) 03/03/17 10:43 C-Reactive Prot, Quant 19.8 mg/dL (0.0-0.9) H 03/02/17 21:30 Total Protein 5.9 gm/dL (6.2-8.2) L 03/03/17 10:43 Albumin 2.2 gm/dl (3.4-5.0) L 03/03/17 10:43 Procalcitonin 0.28 ng/mL (0.05-0.50) 03/03/17 10:43 Urine Color Dark yellow 03/02/17 22:00 Urine Appearance Clear 03/02/17 22:00 Urine pH 6.0 pH (5.0-7.0) 03/02/17 22:00 Ur Specific [place] 1.025 SP.GR. (1.005-1.030) 03/02/17 22:00 Urine Protein 100 mg/dL (NEGATIVE) H 03/02/17 22:00 Urine Glucose (UA) >=1000 mg/dL (NEGATIVE) H 03/02/17 22:00 Urine Clinitest 4+ (300mg/dl)or more mg/dL (NEGATIVE) H 03/02/17 22:00 Urine Ketones 5 mg/dL (NEGATIVE) 03/02/17 22:00 Urine Blood 50 /ul (NEGATIVE) H 03/02/17 22:00 Urine Nitrate Negative (NEGATIVE) 03/02/17 22:00 Urine Bilirubin Negative mg/dl (NEGATIVE) 03/02/17 22:00 Prot Sulfosalicylic Acd 2+ mg/dL (0) H 03/02/17 22:00 Urine Urobilinogen Normal EU/dl (NORMAL) 03/02/17 22:00 Ur Leukocyte Esterase Negative /ul (NEGATIVE) 03/02/17 22:00 Urine RBC None seen /hpf (0-5) 03/02/17 22:00 Urine WBC None seen /hpf (0-5) 03/02/17 22:00 Ur Epithelial Cells 0-5 /hpf (0-5) 03/02/17 22:00 Urine Bacteria Trace (NONE) 03/02/17 22:00 Fine Granular Casts 0-5 /LPF (NONE) H 03/02/17 22:00 Urine Culture Comments No culture indicated 03/02/17:00 Assessment/Plan - Narrative Narrative: This is a 51 year old man who has a history of long standing diabetes, chronic headaches for at least a decade, vertigo for at least four or five years associated with tinnitus, and a previous left leg amputation due to a diabetic foot ulcer who developed two new ulcers in his right foot this year. He has had a cough for about three months, cough unknown. Yesterday morning, he developed spinning vertigo, nausea, vomiting and fever to 100 or 101. Also, one of his usual headaches. He was brought to the [facility] ER, where a diagnosis of pneumonia was made, though on my review of the xray, I am hard pressed to see the infiltrate. His right foot wound is being managed at present by the wound center in [place], [place]. His headache is severe. I think this is more likely a worsening right foot infection with sepsis, and should be treated as such with cultures. We also need to get our wound clinic and soft drink powder mixer involved. I personally directed all our nurse practitioner hospitalist's care for this patient.
[2017-03-03] MEDS ORDERED: HEPARIN SODIUM,PORCINE 5,000 UNITS/ML VIAL SC SCH (00:30)
[2017-03-03] MEDS ORDERED: NORMAL SALINE 1,000 ML IV PRN (01:30)
[2017-03-03] MEDS ORDERED: ONDANSETRON HCL 4 MG TABLET PO PRN (01:31)
[2017-03-03] MEDS ORDERED: MECLIZINE HCL 25 MG TABLET PO PRN (01:37)
[2017-03-03] MEDS ORDERED: ONDANSETRON HCL/PF 2 MG/ML VIAL IV PRN (01:45)
[2017-03-03] MEDS: ACETAMINOPHEN 325 MG TABLET PO PRN (02:39)
[2017-03-03 05:51] LABS: Mean Cell Volume 85.8 fl (78-100); Mean Corpuscular Hemoglobin 29.7 pg (27-31); Mean Corpuscular Hgb Conc 34.6 g/dl (32-36); Red Cell Distribution Width 14.4 % (11.5-14.0)
[2017-03-03 06:13] LABS: Anion Gap 13.8 mmol/L (6.8-13.8); BUN/Creatinine Ratio 8.8 (9.0-21.6); Calcium * 7.4 mg/dL (7.9-10.9); Carbon Dioxide 25.1 mmol/L (24-32.6); Estimated Creat Clear 82.4; Potassium 2.9 mmol/L (3.4-4.6); Total Cells Counted 100
[2017-03-03 06:26] LABS: Band 6 % (0-2.0); Lymphocyte 3 % (20-51); Monocyte 3 % (0-9); Neutrophil 88 % (42-75); Polychromasia 1+
[2017-03-03 06:27] LABS: Basophilic Stippling 1+
[2017-03-03 06:32] LABS: Hematocrit 29.6 % (42.0-52.0); Hemoglobin 10.1 gm/dL (13.5-18.0); Mean Platelet Volume 8.6 fl (6.0-9.5); Platelet Count 269 K/mm3 (150-450); Red Blood Count 3.42 M/mm3 (4.7-6.0)
[2017-03-03 06:34] LABS: Platelet Estimate Normal (NORMAL)
[2017-03-03 06:35] LABS: Neutrophil # 7.7 K/mm3 (1.3-6.0); White Blood Count 8.8 K/mm3 (4.0-10.5)
[2017-03-03] MEDS: INSULIN LISPRO 100 UNITS/ML VIAL SC SCH ×4 (07:10→20:03)
[2017-03-03] MEDS: POTASSIUM CHLORIDE 100 ML IV SCH ×2 (07:19→10:08)
[2017-03-03] MEDS ORDERED: diphenhydrAMINE HCL 50 MG/ML VIAL IV PRN (08:09)
[2017-03-03] MEDS: MECLIZINE HCL 25 MG TABLET PO SCH ×5 (08:45→23:16)
[2017-03-03] MEDS: KETOROLAC TROMETHAMINE 15 MG/ML VIAL IV PRN (08:45)
[2017-03-03] MEDS: METOCLOPRAMIDE HCL 5 MG/ML VIAL IV PRN (08:46)
[2017-03-03] MEDS: FAMOTIDINE 20 MG TABLET PO SCH ×2 (08:52→20:01)
[2017-03-03] MEDS: CLOPIDOGREL BISULFATE 75 MG TABLET PO SCH (08:52)
[2017-03-03] MEDS: ENOXAPARIN SODIUM 40 MG/0.4 ML SYRG SC SCH (08:52)
[2017-03-03] MEDS: ASPIRIN 325 MG TABLET.DR PO SCH (08:52)
[2017-03-03] MEDS: POTASSIUM CHLORIDE 40 MEQ in NORMAL SALINE 1,000 ML IV SCH ×2 (08:53→23:05)
[2017-03-03] MEDS: INSULIN GLARGINE,HUM.REC.ANLOG 100 UNITS/ML VIAL SC SCH ×2 (08:54→20:03)
[2017-03-03] MEDS: chlorproMAZINE HCL 10 MG in NORMAL SALINE 50 ML IV SCH ×4 (08:54→23:05)
[2017-03-03] MEDS ORDERED: LISINOPRIL 20 MG TABLET PO SCH (09:00)
[2017-03-03] MEDS ORDERED: INSULIN GLARGINE,HUM.REC.ANLOG 100 UNITS/ML VIAL SC SCH (09:00)
[2017-03-03] MEDS ORDERED: NORMAL SALINE 1,000 ML IV ONE ×3 (10:34→17:36)
[2017-03-03] MEDS: NORMAL SALINE 1,000 ML IV PRN (10:40)
[2017-03-03] MEDS ORDERED: ASCORBIC ACID 500 MG/ML IV SCH (11:00)
[2017-03-03 11:03] LABS: Prothrombin Time (Patient) 11.6 Seconds (9.4-11.4)
[2017-03-03 11:05] LABS: INR 1.12 INR (0.90-1.10); Partial Thrombolplastin Time 31.5 Seconds (24-32)
[2017-03-03 11:06] LABS: ALT 20 U/L (19-67); AST 24 U/L (0-48); Albumin * 2.2 gm/dl (3.4-5.0); Alkaline Phosphatase * 85 U/L (50-170); Anion Gap 13.1 mmol/L (6.8-13.8); BUN/Creatinine Ratio 8.1 (9.0-21.6); Bilirubin, Total 0.5 mg/dL (0.0-1.1); Blood Urea Nitrogen 10 mg/dL (6-23); Ca. Corrected For Albumin 8.3 mg/dL (8.4-10.2); Calcium * 7.2 mg/dL (7.9-10.9); Carbon Dioxide 24.1 mmol/L (24-32.6); Chloride 104 mmol/L (97-106); Glucose * 107 mg/dL (70-110); Potassium 3.2 mmol/L (3.4-4.6); Sodium 138 mmol/L (132-142); Total Protein 5.9 gm/dL (6.2-8.2)
[2017-03-03 11:08] LABS: Troponin I Less than 0.017 ng/ml (0.00-0.10)
[2017-03-03 11:21] LABS: Hematocrit 29.1 % (42.0-52.0); Mean Cell Volume 86.1 fl (78-100); Mean Corpuscular Hemoglobin 29.6 pg (27-31); Mean Corpuscular Hgb Conc 34.4 g/dl (32-36); Platelet Count 251 K/mm3 (150-450); Red Blood Count 3.38 M/mm3 (4.7-6.0); Red Cell Distribution Width 13.5 % (11.5-14.0); White Blood Count 8.8 K/mm3 (4.0-10.5)
[2017-03-03] MEDS: DEXTROSE 5% IV SCH ×4 (11:42→20:01)
[2017-03-03] MEDS: WATER IV SCH ×4 (11:42→20:01)
[2017-03-03] MEDS: HYDROCORTISONE SOD SUCCINATE IV SCH ×4 (11:42→20:01)
[2017-03-03 11:50] LABS: Total Cells Counted 100
[2017-03-03] MEDS: THIAMINE HCL 200 MG in NORMAL SALINE 50 ML IV SCH (12:14)
[2017-03-03 12:22] LABS: Band 3 % (0-2.0); Lymphocyte 11 % (20-51); Neutrophil 86 % (42-75); Neutrophil # 7.6 K/mm3 (1.3-6.0); Platelet Estimate Normal (NORMAL); RBC Morphology Normal (NORMAL)
[2017-03-03] MEDS: HYDROcodone/ACETAMINOPHEN 1 EACH TABLET PO PRN ×2 (12:43→23:02)
[2017-03-03] MEDS: ASCORBIC ACID IV SCH ×2 (13:12→18:43)
[2017-03-03] MEDS: NORMAL SALINE IV SCH ×2 (13:12→18:43)
[2017-03-03] MEDS: VANCOMYCIN HCL 1.75 GM in DEXTROSE 5 % IN WATER 500 ML IV SCH ×4 (13:43→23:05)
--- NOTE | 2017-03-03 16:28 | PN ---
<Mago Rosado - Last Filed: 03/03/17 17:17> Progess Note - Interim Narrative: 03/03/17 16:22 this am pt had sbp of 65, very lethargic and short of breath. additional 1 liter NS ordered wide open bolus. labs orders. ekg ordered. bp increased to sbp 90s. hernandez ordered for accurate I&Os given pt's severe sepsis with evidence of end organ disfunction. over mid day, pt maintain sbp's in the 111s. around 1600, sbp droped to 85 and at one point pt become unresponsive momentarialy. another 1 liter ns bolus ordered. informed house sup about the possibility about needing neosynphrine gtt in the future. now sbp 100. will monitor closely. sg <Bill Talley - Last Filed: 03/03/17 19:51> Progess Note - Interim Narrative: 03/03/17 19:50 patient is doing much better. I expect him to do well hence forth. source of infection is most likely his foot. will continue with IV antibiotics and follow labs. I directly supervised our nurse practitioner hospitalist's care for this patient.
--- NOTE | 2017-03-03 17:43 | CONS ---
[facility] - General Date of Service: 03/03/17 Narrative: Pt seen at bedside resting. Was admitted for pneumonia, however on admission was found to have ulceration with cellulitis to his right foot. Has previously had partial 1st ray and 2nd toe amputations. Now with ulceration to medial aspect of the foot. Has been under the care of Dr. Sarabia as well as a surgeon in [place], who did BKA of the opposite extremity. I was consulted for surgical evaluation. Source: patient Exam Limitations: no limitations - History of Present Illness Allergies/Adverse Reactions: Allergies omeprazole Allergy (Verified 01/07/16 03:00) Home Medications: Home Medications Medication Instructions Recorded Last Taken Aspirin 325 mg PO DAILY 09/16/15 Unknown Clopidogrel Bisulfate [Plavix] 75 mg PO DAILY 09/16/15 Unknown Famotidine 20 mg PO BID 01/07/16 Unknown Glimepiride [Amaryl] 4 mg PO BID 01/07/16 03/25/16 07:00 Lisinopril [Prinivil] 20 mg PO DAILY 01/07/16 Unknown HYDROcodone/ACETAMINOPHEN [[place] 1 - 2 tab PO Q6H PRN 03/25/16 Unknown 5-325] Insulin Glargine,Hum.rec.anlog 80 units SC BID 03/25/16 03/25/16 07:00 [Lantus] Ciprofloxacin HCl [Cipro] 500 mg PO 03/02/17 Unknown metroNIDAZOLE [Flagyl] 500 mg PO 03/02/17 Unknown - Patient's Past Medical History Patient History - Medical: Diabetes Type 2 Insulin Dependent, GERD, Osteoporosis Patient History - Cardiac/Respiratory: Coronary Heart Disease, Hypertension, Myocardial Infarction, Peripheral Vascular Disease Patient History - Cancer: No Hx of Cancer Patient History - Surgical Procedures: Cholecystectomy, Cardiac stent, Other, Orthopedic Patient History - Other: None - Family History Mother Family History - Medical: Diabetes Type 2 Insulin Dependent Family History - Cardiac/Respiratory: No pertinent hx Family History - Cancer: No pertinent family hx Father Family History - Medical: Family History - Cardiac/Respiratory: History Unknown Family History - Cancer: History Unknown - Social History Living Situations: home Abuse History: No History of abuse Psych History: No pertinent hx Smoking Status: Former smoker Have you smoked in the past 12 months: No Do you dip or chew tobacco: Yes Patient requests Smoking Cessation Consult: No Initiate information on Smoking Cessation: No Alcohol Use: none Drug Use: none - Immunizations Immunizations Up to Date: Yes Hx Pneumococcal Vaccination: Yes History of Influenza Vaccine: Yes Medications - Medications Current Medications: Current Medications Acetaminophen (Tylenol) 650 mg PO Q6H PRN PRN Reason: Mild pain Stop: 04/02/17 02:22 Last Admin: 03/03/17 02:39 Dose: 650 mg Acetaminophen/Hydrocodone Bitart ([place] 5-325) 1 each PO Q6H PRN PRN Reason: Pain Stop: 04/02/17 01:38 Last Admin: 03/03/17 12:43 Dose: 1 each Aspirin (Aspirin Enteric Coated) 325 mg PO DAILY MICHELLE Stop: 04/02/17 09:01 Last Admin: 03/03/17 08:52 Dose: 325 mg Clopidogrel Bisulfate (Plavix) 75 mg PO DAILY MICHELLE Stop: 04/02/17 09:01 Last Admin: 03/03/17 08:52 Dose: 75 mg Diphenhydramine HCl (Benadryl) 12.5 mg IV Q6H PRN PRN Reason: Headache Stop: 04/02/17 08:10 Last Admin: 03/03/17 08:46 Dose: 12.5 mg Enoxaparin Sodium (Lovenox) 40 mg SC Q24H MICHELLE Stop: 04/02/17 09:01 Last Admin: 03/03/17 08:52 Dose: 40 mg Famotidine (Pepcid) 20 mg PO BID MICHELLE Stop: 04/02/17 09:01 Last Admin: 03/03/17 08:52 Dose: 20 mg Levofloxacin/Dextrose (Levaquin) 750 mg in 150 mls @ 100 mls/hr IV Q24H MICHELLE PRN Reason: Protocol Stop: 04/01/17 23:01 Last Infusion: 03/03/17 00:36 Dose: Infused Vancomycin HCl 1.75 gm/ (Dextrose/Water) 500 mls @ 250 mls/hr IV Q12H MICHELLE PRN Reason: Protocol Stop: 04/02/17 11:31 Last Infusion: 03/03/17 15:43 Dose: Infused Potassium Chloride 40 meq/ (Sodium Chloride) 1,020 mls @ 125 mls/hr IV .Q8H10M MICHELLE Stop: 04/02/17 08:16 Last Infusion: 03/03/17 13:23 Dose: 125 mls/hr Chlorpromazine HCl 10 mg/ (Sodium Chloride) 50.4 mls @ 300 mls/hr IV Q4H [facility] Stop: 04/02/17 08:31 Last Infusion: 03/03/17 13:31 Dose: Infused Sodium Chloride (Sodium Chloride 0.9%) 1,000 mls @ 125 mls/hr IV .Q8H [facility] Stop: 03/03/17 18:33 Last Admin: 03/03/17 11:31 Dose: Not Given Hydrocortisone Sodium Succinate 50 mg/ Dextrose/Water 51 mls @ 200 mls/hr IV Q6H [facility] Stop: 04/02/17 11:01 Last Infusion: 03/03/17 11:42 Dose: Infused Thiamine HCl 200 mg/ Sodium (Chloride) 52 mls @ 100 mls/hr IV DAILY [facility] Stop: 04/02/17 11:01 Last Admin: 03/03/17 12:14 Dose: 100 mls/hr Ascorbic Acid 1,500 mg/ Sodium (Chloride) 253 mls @ 250 mls/hr IV Q6H [facility] Stop: 04/02/17 11:16 Last Infusion: 03/03/17 14:13 Dose: Infused Insulin Glargine (Lantus) 53 units SC BID [facility] Stop: 04/02/17 09:01 Last Admin: 03/03/17 08:54 Dose: 53 units Insulin Human Lispro (Humalog) 0 units SC ACHSINS [facility] PRN Reason: Protocol Stop: 04/02/17 07:01 Last Admin: 03/03/17 11:41 Dose: Not Given Ketorolac Tromethamine (Toradol) 15 mg IV Q6H PRN PRN Reason: Headache Stop: 03/08/17 08:10 Last Admin: 03/03/17 08:45 Dose: 15 mg Lisinopril (Zestril) 20 mg PO DAILY [facility] Stop: 04/02/17 09:01 Last Admin: 03/03/17 08:52 Dose: 20 mg Meclizine HCl (Antivert) 25 mg PO Q4H [facility] Stop: 04/02/17 08:16 Last Admin: 03/03/17 13:17 Dose: 25 mg Metoclopramide HCl (Reglan) 5 mg IV Q6H PRN PRN Reason: Headache Stop: 04/02/17 08:10 Last Admin: 03/03/17 08:46 Dose: 5 mg Review of Systems - Review of Systems Neurological: Present: Numbness Skin: Present: Other - Ulceration right foot, erythema right foot Physical Examination - Exam Vital Signs: Vital Signs - Last Taken Temp 36.2 C L 03/03/17 15:00 Pulse 90 03/03/17 15:00 Resp 26 H 03/03/17 15:00 BP 100/56 03/03/17 15:00 Pulse Ox 94 03/03/17 15:00 O2 Oxygen Delivery Method Room Air Constitutional: Present: Alert, Oriented x3, No distress Peripheral Pulses: dorsalis-pedis (R): 1+ Skin Exam: Present: other - Ulceration x2 to medial right foot. Distal ulceration measuring 3 x 1.5 x 2 cm, proximal measuring 4.2 x 1.7 x 2.2. No tunneling or undermining. Loss of tissue to full thickness with exposure of subcutaneous fat layer. Base mostly granular with fibrotic tissue intermixed, surrounding tissue hyperkeratotic and erythematous with erythema extending to the dorsal midfoot. Moderate serosanguinous drainage, no malodor. No exposed tendon, however can probe to bone. Neurologic: Present: sensory deficit - Results and Findings: Lab/Microbiology results last 24 hrs: Abnormal/Pending Laboratory Last 24 HRS 03/03/17 03/03/17 03/03/17 10:43 10:43 10:43 RBC 3.38 L Hgb 10.0 L Hct 29.1 L RDW Neutrophils % (Manual) 86 H Band Neuts % (Manual) 3 H Lymphocytes % (Manual) 11 L Neutrophils # (Manual) 7.6 H Lymphocytes # (Manual) 1.0 L ESR PT 11.6 H INR (Anticoag Therapy) 1.12 H Potassium 3.2 L BUN/Creatinine Ratio 8.1 L Random Glucose Calcium 7.2 L Calcium Adj for Albumin 8.3 L Total Protein 5.9 L Albumin 2.2 L 03/03/17 03/03/17 03/03/17 04:50 04:50 01:00 RBC 3.42 L Hgb 10.1 L Hct 29.6 L RDW 14.4 H Neutrophils % (Manual) 88 H Band Neuts % (Manual) 6 H Lymphocytes % (Manual) 3 L Neutrophils # (Manual) 7.7 H Lymphocytes # (Manual) 0.3 L ESR 63 H PT INR (Anticoag Therapy) Potassium 2.9 L BUN/Creatinine Ratio 8.8 L Random Glucose 153 H Calcium 7.4 L Calcium Adj for Albumin Total Protein Albumin - Assessments/Findings (1) Cellulitis Diagnosis(s): Continue IV ABX. Problem: Acute (2) Diabetic foot ulcer Diagnosis(s): Ulceration examined at bedside. Applied DSD of dry gauze, genie, and BELLA bandage. Discussed with pt options for care including continued wound care and IV ABX vs surgical debridement, vs further amputation pending further exams. 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 Will continue to follow for local care at this time. Will plan for bedside debridement tomorrow. Problem: Chronic Qualifiers: Diabetic foot ulcer location: other Diabetes mellitus type: type 2 Laterality: right Non-pressure ulcer stage: with fat layer exposed Qualified Code(s): E11.621 - Type 2 diabetes mellitus with foot ulcer; L97.512 - Non-pressure chronic ulcer of other part of right foot with fat layer exposed
--- NOTE | 2017-03-03 20:52 | OR ---
Anesthesia Procedure Note - Anesthesia Procedure Note Narrative: Vital Signs - Last Taken Temp 36.7 C 03/03/17 19:00 Pulse 92 03/03/17 19:15 Resp 19 03/03/17 19:00 BP 128/66 03/03/17 19:15 Pulse Ox 100 03/03/17 19:00 O2 Oxygen Delivery Method Room Air 03/03/17 20:51 ANESTHESIA PROCEDURE NOTE Date of procedure: 03/03/2017. Time of procedure: . Performed by: Eladio Landaverde CRNA Glass Vial Bending Conveyor Feeder: None . Preprocedure diagnosis: Sepsis. Difficult IV access. Post procedure diagnosis: Same. Procedure: IV start Indications: Difficult IV access. Findings: 22-gauge Angiocath started in the left antecubital with ultrasound guidance. EBL: Minimal. Fluids: N/A. Specimen: N/A. Post procedure condition: The patient tolerated the procedure well. No complications were noted. Thank you for this consultation Eladio Landaverde CRNA
[2017-03-04] MEDS: LEVOFLOXACIN/D5W 750 MG/150 ML BAG IV SCH ×2 (01:15→23:04)
[2017-03-04] MEDS: ASCORBIC ACID IV SCH ×2 (01:16→06:37)
[2017-03-04] MEDS: NORMAL SALINE IV SCH ×2 (01:16→06:37)
[2017-03-04] MEDS ORDERED: WATER IV SCH ×2 (02:00)
[2017-03-04] MEDS ORDERED: HYDROCORTISONE SOD SUCCINATE IV SCH ×2 (02:00)
[2017-03-04] MEDS ORDERED: DEXTROSE 5% IV SCH ×2 (02:00)
[2017-03-04] MEDS: chlorproMAZINE HCL 10 MG in NORMAL SALINE 50 ML IV SCH ×6 (02:44→22:05)
[2017-03-04] MEDS: MECLIZINE HCL 25 MG TABLET PO SCH ×6 (03:46→23:14)
[2017-03-04 06:20] LABS: BUN/Creatinine Ratio 7.9 (9.0-21.6); Calcium * 7.2 mg/dL (7.9-10.9); Carbon Dioxide 21.8 mmol/L (24-32.6); Estimated Creat Clear 104.6; Potassium 3.8 mmol/L (3.4-4.6)
[2017-03-04] MEDS: INSULIN LISPRO 100 UNITS/ML VIAL SC SCH ×4 (06:33→20:09)
[2017-03-04] MEDS: POTASSIUM CHLORIDE 40 MEQ in NORMAL SALINE 1,000 ML IV SCH (06:40)
[2017-03-04 06:45] LABS: Hematocrit 29.6 % (42.0-52.0); Hemoglobin 10.1 gm/dL (13.5-18.0); Mean Cell Volume 87.8 fl (78-100); Mean Corpuscular Hgb Conc 34.1 g/dl (32-36); Platelet Count 269 K/mm3 (150-450); Red Blood Count 3.37 M/mm3 (4.7-6.0); White Blood Count 7.5 K/mm3 (4.0-10.5)
[2017-03-04 06:52] LABS: Total Cells Counted 100
[2017-03-04 06:56] LABS: Band 5 % (0-2.0); Eosinophil 1 % (0-3); Immature Granulocyte 1 (0-1); Lymphocyte 7 % (20-51); Monocyte 2 % (0-9); Neutrophil 84 % (42-75); Neutrophil # 6.3 K/mm3 (1.3-6.0); Platelet Estimate Normal (NORMAL)
[2017-03-04 06:57] LABS: RBC Morphology Normal (NORMAL)
[2017-03-04] MEDS: INSULIN GLARGINE,HUM.REC.ANLOG 100 UNITS/ML VIAL SC SCH ×2 (07:30→20:07)
[2017-03-04] MEDS: POTASSIUM CHLORIDE 40 MEQ in 0.5 NORMAL SALINE 1,000 ML IV SCH ×2 (08:44→15:19)
[2017-03-04] MEDS: ASPIRIN 325 MG TABLET.DR PO SCH (08:46)
[2017-03-04] MEDS: FAMOTIDINE 20 MG TABLET PO SCH ×2 (08:46→20:07)
[2017-03-04] MEDS: ENOXAPARIN SODIUM 40 MG/0.4 ML SYRG SC SCH (08:46)
[2017-03-04] MEDS: CLOPIDOGREL BISULFATE 75 MG TABLET PO SCH (08:46)
[2017-03-04] MEDS: THIAMINE HCL 200 MG in NORMAL SALINE 50 ML IV SCH (08:47)
[2017-03-04] MEDS: TIOTROPIUM BROMIDE 5 CAP INHALER IH SCH (08:48)
[2017-03-04] MEDS: FLUTICASONE/SALMETEROL 14 PUFF DISK.W.DEV IH SCH ×2 (08:48→20:08)
[2017-03-04] MEDS: LOSARTAN POTASSIUM 50 MG TABLET PO SCH (08:49)
[2017-03-04] MEDS: HYDROcodone/ACETAMINOPHEN 1 EACH TABLET PO PRN ×2 (13:52→21:25)
[2017-03-04] MEDS ORDERED: VANCOMYCIN HCL 1.75 GM in DEXTROSE 5 % IN WATER 500 ML IV ONE ×2 (14:30)
[2017-03-04] MEDS ORDERED: VANCOMYCIN HCL 1.75 GM in NORMAL SALINE 500 ML IV ONE (14:30)
--- NOTE | 2017-03-04 17:39 | PN ---
Subjective - Date and Time Seen Date: 03/04/17 Time: 17:39 Subjective Narrative: Pt seen at bedside resting. Denies N/V/F/C/SOB. States he is feeling much better today. Objective - Review of Systems Skin: Reports: Other - Ulceration right foot, erythema right foot - Vitals Vitals: Last Vital Signs Temp 36.9 C 03/04/17 15:00 Pulse 76 03/04/17 16:54 Resp 16 03/04/17 15:00 BP 143/62 03/04/17 15:00 Pulse Ox 100 03/04/17 15:00 - Abnormal Lab Findings Abnormal Lab Findings: Abnormal Lab Results 03/04/17 03/04/17 Range/Units 05:00 05:00 RBC 3.37 L (4.7-6.0) M/mm3 Hgb 10.1 L (13.5-18.0) gm/dL Hct 29.6 L (42.0-52.0) % Neutrophils % (Manual) 84 H (42-75) % Band Neuts % (Manual) 5 H (0-2.0) % Lymphocytes % (Manual) 7 L (20-51) % Neutrophils # (Manual) 6.3 H (1.3-6.0) K/mm3 Lymphocytes # (Manual) 0.5 L (1.5-3.5) k/mm3 Sodium 143 H (132-142) mmol/L Plasma Sodium 144 H (130-142) mmol/L Chloride 111 H (97-106) mmol/L Carbon Dioxide 21.8 L (24-32.6) mmol/L Anion Gap 14.0 H (6.8-13.8) mmol/L BUN/Creatinine Ratio 7.9 L (9.0-21.6) Random Glucose 160 H D (70-110) mg/dL Calcium 7.2 L (7.9-10.9) mg/dL - Exam Constitutional: Present: Alert, Oriented x3, No distress Skin Exam: Present: other - Ulcerations x2 to right foot unchanged in size. No tunneling or undermining. Loss of tissue to full thickness with exposure of subcutaneous fat layer. Base mostly granular with some fibrotic tissue intermixed, surrounding tissue hyperkeratotic and erythematous with erythema extending to the dorsal midfoot, improved from yesterday. Moderate serosanguinous drainage, no malodor. No exposed tendon, however can probe to bone. Neurologic: Present: sensory deficit Eye contact: Present: cooperative Cauti Physician Documentation - Urinary Catheter Management Urethral (Correa) Date of Insertion: 03/03/17 Time of Insertion: 11:09 Date of Removal: 03/04/17 Time of Removal: 15:30 Assessment/Plan - Problems/Diagnosis (1) Cellulitis Problem: Acute Qualifiers: Site of cellulitis: extremity Site of cellulitis of extremity: lower extremity Laterality: right Qualified Code(s): L03.115 - Cellulitis of right lower limb Narrative: Continue IV ABX. (2) Diabetic foot ulcer Problem: Chronic Qualifiers: Diabetic foot ulcer location: other Diabetes mellitus type: type 2 Laterality: right Non-pressure ulcer stage: with fat layer exposed Qualified Code(s): E11.621 - Type 2 diabetes mellitus with foot ulcer; L97.512 - Non-pressure chronic ulcer of other part of right foot with fat layer exposed Narrative: Ulceration to right foot debrided to subcutaneous tissue with #15 blade, excising surrounding hyperkeratotic tissue revealing healthy, bleeding wound margins. Surface of ulceration debrided with #15 blade excising any devitalized tissue revealing healthy bleeding subcutaneous wound bed. Hemostasis with compression. Pt tolerated well. New dressing of dry gauze, genie, and BELLA applied. Will order MRI to eval for osteomyelitis due to positive probe to bone test. Again discussed surgical options, pt states that if a higher amputation needs to be done, he would like to go to [place]. Would discuss with significant other any other surgical care before proceeding.
--- NOTE | 2017-03-04 18:41 | PN ---
Subjective - Date and Time Seen Date: 03/04/17 Time: 07:40 Subjective Narrative: Improved today. Headache better. Vertigo better. Mentation better. Cough goes back to when he was a teenager. Every fall and winter, then eventually all year round. Breo inhaler recently helped, now not as much. albuterol less help. he thinks he might have COPD. He had impaired mentation early on in his hospitalization this time when his BP dropped into the 60s and 70s, this represented the end organ failure associated with severe sepsis mentioned by our hospitalist. He has recovered from that. Objective - Review of Systems Generalized/Overall Review: Reports: Malaise EENTM: Reports: No Symptoms Reported Respiratory: Reports: Cough, Shortness of Breath Cardiac: Reports: No Symptoms Reported Abdominal: Reports: No Symptoms Reported Genitourinary Symptoms: Reports: No Symptoms Reported Musculoskeletal Complaints: Reports: No Symptoms Reported Neurological: Reports: Headache - vertigo, tinnitus Skin: Reports: Other - wounds in right foot. Endocrine: Reports: No Symptoms Reported Misc: All systems neg except as marked - Vitals Vitals: Last Vital Signs Selected Entries 03/03/17 06:00 Temperature 38.5 C H Temperature Temporal Artery Source Scan Pulse Rate 127 H Respiratory 22 H Rate Blood Pressure 127/64 Blood Pressure Supine Position O2 Sat by Pulse 97 Oximetry Oxygen Delivery Room Air Method - Abnormal Lab Findings Abnormal Lab Findings: Abnormal Lab Results 03/04/17 03/04/17 Range/Units 05:00 05:00 RBC 3.37 L (4.7-6.0) M/mm3 Hgb 10.1 L (13.5-18.0) gm/dL Hct 29.6 L (42.0-52.0) % Neutrophils % (Manual) 84 H (42-75) % Band Neuts % (Manual) 5 H (0-2.0) % Lymphocytes % (Manual) 7 L (20-51) % Neutrophils # (Manual) 6.3 H (1.3-6.0) K/mm3 Lymphocytes # (Manual) 0.5 L (1.5-3.5) k/mm3 Sodium 143 H (132-142) mmol/L Plasma Sodium 144 H (130-142) mmol/L Chloride 111 H (97-106) mmol/L Carbon Dioxide 21.8 L (24-32.6) mmol/L Anion Gap 14.0 H (6.8-13.8) mmol/L BUN/Creatinine Ratio 7.9 L (9.0-21.6) Random Glucose 160 H D (70-110) mg/dL Calcium 7.2 L (7.9-10.9) mg/dL - Exam Constitutional: Present: Alert, Oriented x3, Cooperative, Well developed, Well nourished, No distress ENT Exam: Present: normal ENT inspection, hearing grossly normal Neck: Present: normal inspection Respiratory: Present: normal breath sounds, no respiratory distress Cardiovascular/Chest: Present: regular rate, rhythm, no chest tenderness Abdomen: Present: Normal bowel sounds, soft, nontender, nondistended, no rebound tenderness, no hepatospenomegaly, no masses Extremity: Present: non-tender, other - wounds right foot Skin Exam: Present: normal color, warm/dry, no cyanosis Neurologic: Present: alert, oriented x 3 Appearance: Present: appropriate appearance, neat Eye contact: Present: cooperative, good eye contact, normal speech Thoughts: Present: normal thought pattern Cauti Physician Documentation - Urinary Catheter Management Urethral (Correa) Date of Insertion: 03/03/17 Time of Insertion: 11:09 Date of Removal: 03/04/17 Time of Removal: 15:30 Assessment/Plan Plan Narrative: meds for COPD. CT chest. podiatry consult. IV antibiotics. follow labs. - Problems/Diagnosis (1) Severe sepsis Problem: Acute (2) COPD (chronic obstructive pulmonary disease) Problem: Acute (3) Tinnitus aurium Problem: Acute (4) Migraine Problem: Acute (5) Cellulitis Problem: Acute (6) Diabetic foot ulcer Problem: Acute (7) Fever Problem: Acute Qualifiers: Fever type: unspecified Qualified Code(s): R50.9 - Fever, unspecified (8) Vertigo Problem: Chronic (9) Diabetes Problem: Chronic Qualifiers: Diabetes mellitus type: type 2 Diabetes mellitus complication status: with circulatory complication
[2017-03-04] MEDS: MONTELUKAST SODIUM 10 MG TABLET PO SCH (20:07)
--- NOTE | 2017-03-04 20:49 | OR ---
Anesthesia Procedure Note - Anesthesia Procedure Note Date of Service: 03/04/17 Narrative: Vital Signs - Last Taken Temp 36.9 C 03/04/17 15:00 Pulse 76 03/04/17 16:54 Resp 16 03/04/17 15:00 BP 143/62 03/04/17 15:00 Pulse Ox 100 03/04/17 15:00 O2 Oxygen Delivery Method Room Air 03/04/17 20:45 ANESTHESIA PROCEDURE NOTE Date of Procedure: 03/04/2017 Time of procedure: 8:10 PM. Performed by: Miguel Cortez CRNA, TEREZA, MSN Preprocedure diagnosis: Sepsis, lack of venous access. Post procedure diagnosis: Same. Procedure: Venipuncture for IV access. Indications: Sepsis. Findings: See below. Details of the procedure: After scouring the right antecubital area with Doppler imaging, the patient was prepped with Betadine and alcohol, 0.1 mL of 1 % lidocaine solution was injected at the intended IV site. Using sterile cover and jelly on the ultrasound and #22-gauge IV was inserted into the right antecubital area, good blood return was evident and a heparin lock with extension was attached. The catheter was then flushed once prior to affixing the IV in place and once just after. On discussion with the patient he had a previous IV inserted in the left side in a similar position last evening and that IV lasted approximately 1 hour. Considering the similarity in venous access position, I discussed with both the patient and the nurse the benefit of applying and arm restraint which would restrict the bending of the right arm at this point. Both were amenable and splint was to be placed. EBL: Minimal. Fluids: N/A. Specimen: N/A. Post procedure condition: The patient tolerated the procedure well. No complications were noted. Thank you for this consultation. Miguel Cortez CRNA, JOB PLACEMENT COUNSELOR, MSN
--- NOTE | 2017-03-04 21:38 | OR ---
Anesthesia Procedure Note - Anesthesia Procedure Note Date of Service: 03/04/17 Narrative: Vital Signs - Last Taken Temp 37.6 C H 03/04/17 21:00 Pulse 101 H 03/04/17 21:00 Resp 16 03/04/17 21:00 BP 134/73 03/04/17 21:00 Pulse Ox 99 03/04/17 21:00 O2 Oxygen Delivery Method Room Air 03/04/17 21:33 ANESTHESIA PROCEDURE NOTE Date of Procedure: 03/04/2017 Time of procedure: 2109. Performed by: TEREZA Grady CRNA, MSN Preprocedure diagnosis: Sepsis, lack of IV access. Post procedure diagnosis: Same. Procedure: Venipuncture for IV access. Indications: Sepsis. Findings: See below. Details of the procedure: After recently having started an IV and Mr. Perez right antecubital, I was notified that the patient complained of much pain on injection even though a good blood return was noted from the site. I am unable to explain why this phenomena is occurring, particularly in light of the fact that I had just recently flushed the IV twice without an issue. Still, it is apparent that he is in need of a venous access. After explaining the procedure to the patient he was placed in Trendelenburg and the left neck was prepped with Betadine and alcohol, 0.1 mL of 1% lidocaine solution was injected at the intended IV site. A 22-gauge IV was inserted with good blood return and the IV flushed easily without complaints of pain on injection. The IV was then taped in place although the tape seemed to have some trouble sticking to his neck. The patient and nurse were both informed of this and reinforcement was encouraged. EBL: Minimal. Fluids: N/A. Specimen: N/A. Post procedure condition: The patient tolerated the procedure well. No complications were noted. Thank you for this consultation. Miguel Cortez CRNA, INDUSTRIAL ENGINEERING DIRECTOR, MSN
[2017-03-04] MEDS: ACETAMINOPHEN 325 MG TABLET PO PRN (23:03)
[2017-03-04] MEDS ORDERED: VANCOMYCIN HCL 1.75 GM in NORMAL SALINE 500 ML IV SCH (23:30)
[2017-03-05] MEDS: POTASSIUM CHLORIDE 40 MEQ in 0.5 NORMAL SALINE 1,000 ML IV SCH ×3 (00:34→23:16)
[2017-03-05] MEDS ORDERED: VANCOMYCIN HCL 1.75 GM in NORMAL SALINE 500 ML IV SCH (02:30)
[2017-03-05] MEDS: chlorproMAZINE HCL 10 MG in NORMAL SALINE 50 ML IV SCH ×6 (03:08→23:17)
[2017-03-05] MEDS: MECLIZINE HCL 25 MG TABLET PO SCH ×6 (03:14→23:52)
[2017-03-05 05:34] LABS: Anion Gap 12.8 mmol/L (6.8-13.8); BUN/Creatinine Ratio 5.8 (9.0-21.6); Calcium * 7.4 mg/dL (7.9-10.9); Carbon Dioxide 23.9 mmol/L (24-32.6); Estimated Creat Clear 90.4; Potassium 3.7 mmol/L (3.4-4.6)
[2017-03-05] MEDS: INSULIN LISPRO 100 UNITS/ML VIAL SC SCH ×4 (07:28→20:23)
[2017-03-05] MEDS: LORATADINE 10 MG TABLET PO SCH (08:56)
[2017-03-05] MEDS: ASPIRIN 325 MG TABLET.DR PO SCH (08:56)
[2017-03-05] MEDS: LOSARTAN POTASSIUM 50 MG TABLET PO SCH (08:56)
[2017-03-05] MEDS: CLOPIDOGREL BISULFATE 75 MG TABLET PO SCH (08:57)
[2017-03-05] MEDS: FAMOTIDINE 20 MG TABLET PO SCH ×2 (08:57→20:20)
[2017-03-05] MEDS: ENOXAPARIN SODIUM 40 MG/0.4 ML SYRG SC SCH (08:59)
[2017-03-05] MEDS: FLUTICASONE/SALMETEROL 14 PUFF DISK.W.DEV IH SCH ×2 (09:02→20:19)
[2017-03-05] MEDS: TIOTROPIUM BROMIDE 5 CAP INHALER IH SCH (09:03)
[2017-03-05] MEDS: METOCLOPRAMIDE HCL 5 MG/ML VIAL IV PRN (09:14)
[2017-03-05] MEDS: KETOROLAC TROMETHAMINE 15 MG/ML VIAL IV PRN ×2 (09:15→23:39)
[2017-03-05] MEDS: INSULIN GLARGINE,HUM.REC.ANLOG 100 UNITS/ML VIAL SC SCH ×2 (09:27→20:22)
[2017-03-05] MEDS ORDERED: VANCOMYCIN HCL 1.75 GM in DEXTROSE 5 % IN WATER 500 ML IV SCH ×2 (11:30)
[2017-03-05] MEDS: HYDROcodone/ACETAMINOPHEN 1 EACH TABLET PO PRN ×2 (12:00→19:23)
--- NOTE | 2017-03-05 12:59 | PN ---
Subjective - Date and Time Seen Date: 03/05/17 Time: 07:00 Subjective Narrative: Improved today. Headache better. Vertigo better. Mentation better. Cough goes back to when he was a teenager. Every fall and winter, then eventually all year round. Breo inhaler recently helped, now not as much. albuterol less help. he thinks he might have COPD. He had impaired mentation early on in his hospitalization this time when his BP dropped into the 60s and 70s, this represented the end organ failure associated with severe sepsis mentioned by our hospitalist. He has recovered from that. Growing staph aureus from both blood cultures. Growing staph and enterococcus from foot culture. Objective - Review of Systems Generalized/Overall Review: Reports: Malaise EENTM: Reports: No Symptoms Reported Respiratory: Reports: No Symptoms Reported Cardiac: Reports: No Symptoms Reported Abdominal: Reports: No Symptoms Reported Genitourinary Symptoms: Reports: No Symptoms Reported Musculoskeletal Complaints: Reports: No Symptoms Reported Neurological: Reports: No Symptoms Reported Skin: Reports: No Symptoms Reported Endocrine: Reports: No Symptoms Reported Misc: All systems neg except as marked - Vitals Vitals: Last Vital Signs Temp 37.5 C 03/05/17 10:38 Pulse 116 H 03/05/17 10:38 Resp 12 03/05/17 10:38 BP 101/50 03/05/17 10:38 Pulse Ox 97 03/05/17 10:38 - Abnormal Lab Findings Abnormal Lab Findings: Abnormal Lab Results 03/05/17 Range/Units 05:20 Sodium 143 H (132-142) mmol/L Plasma Sodium 143 H (130-142) mmol/L Chloride 110 H (97-106) mmol/L Carbon Dioxide 23.9 L (24-32.6) mmol/L BUN/Creatinine Ratio 5.8 L (9.0-21.6) Random Glucose 124 H (70-110) mg/dL Calcium 7.4 L (7.9-10.9) mg/dL - Exam Constitutional: Present: Alert, Oriented x3, Cooperative, Well developed, Well nourished, No distress ENT Exam: Present: normal ENT inspection Neck: Present: normal inspection Respiratory: Present: normal breath sounds, no respiratory distress Cardiovascular/Chest: Present: normal peripheral pulses, regular rate, rhythm, no chest tenderness, no edema Abdomen: Present: Normal bowel sounds, soft, nontender, nondistended, no rebound tenderness, no hepatospenomegaly, no masses Extremity: Present: normal inspection, no pedal edema, other - dressing not removed from right foot Neurologic: Present: alert, oriented x 3 Appearance: Present: appropriate appearance, appropriate insight, neat, no memory impairment Eye contact: Present: cooperative, good eye contact, normal speech Thoughts: Present: normal thought pattern Cauti Physician Documentation - Urinary Catheter Management Urethral (Correa) Date of Insertion: 03/03/17 Time of Insertion: 11:09 Date of Removal: 03/04/17 Time of Removal: 15:30 Assessment/Plan Plan Narrative: IV antibiotics. Labs. Local care per podiatry. Wait for final cultures. - Problems/Diagnosis (1) Severe sepsis Problem: Acute (2) COPD (chronic obstructive pulmonary disease) Problem: Acute (3) Tinnitus aurium Problem: Acute (4) Migraine Problem: Acute (5) Cellulitis Problem: Acute (6) Diabetic foot ulcer Problem: Acute (7) Fever Problem: Acute Qualifiers: Fever type: unspecified Qualified Code(s): R50.9 - Fever, unspecified (8) Vertigo Problem: Chronic (9) Diabetes Problem: Chronic Qualifiers: Diabetes mellitus type: type 2 Diabetes mellitus complication status: with circulatory complication (10) Bandemia Problem: Acute
[2017-03-05] MEDS ORDERED: VANCOMYCIN HCL LEVEL XX ONE (14:00)
[2017-03-05 14:36] LABS: Cockroach IgE <0.10 kU/L; D farinae IgE <0.10 kU/L
[2017-03-05] MEDS: VANCOMYCIN HCL 1.75 GM in DEXTROSE 5 % IN WATER 500 ML IV SCH ×2 (14:58)
--- NOTE | 2017-03-05 18:01 | PN ---
Subjective - Date and Time Seen Date: 03/05/17 Time: 17:56 Subjective Narrative: Pt seen at bedside resting. Denies N/V/F/C/SOB. States he continues to improve. Objective - Review of Systems Skin: Reports: Other - Ulceration, erythema right foot - Vitals Vitals: Last Vital Signs Temp 36.7 C 03/05/17 16:00 Pulse 103 H 03/05/17 16:00 Resp 22 H 03/05/17 16:00 BP 124/72 03/05/17 16:00 Pulse Ox 100 03/05/17 16:00 - Abnormal Lab Findings Abnormal Lab Findings: Abnormal Lab Results 03/05/17 Range/Units 05:20 Sodium 143 H (132-142) mmol/L Plasma Sodium 143 H (130-142) mmol/L Chloride 110 H (97-106) mmol/L Carbon Dioxide 23.9 L (24-32.6) mmol/L BUN/Creatinine Ratio 5.8 L (9.0-21.6) Random Glucose 124 H (70-110) mg/dL Calcium 7.4 L (7.9-10.9) mg/dL - Exam Constitutional: Present: Alert, Oriented x3, No distress Skin Exam: Present: other - Ulcerations x2 to right foot unchanged in size. No tunneling or undermining. Loss of tissue to full thickness with exposure of subcutaneous fat layer. Base mostly granular with some fibrotic tissue intermixed, surrounding tissue erythematous with erythema extending to the dorsal midfoot - continues to improve. Moderate serosanguinous drainage, no malodor. No exposed tendon, however can probe to bone. Neurologic: Present: sensory deficit Appearance: Present: appropriate appearance Eye contact: Present: cooperative Cauti Physician Documentation - Urinary Catheter Management Urethral (Correa) Date of Insertion: 03/03/17 Time of Insertion: 11:09 Date of Removal: 03/04/17 Time of Removal: 15:30 Assessment/Plan - Problems/Diagnosis (1) Cellulitis Problem: Acute Qualifiers: Site of cellulitis: extremity Site of cellulitis of extremity: lower extremity Laterality: right Qualified Code(s): L03.115 - Cellulitis of right lower limb Narrative: Continue IV ABX at this time. (2) Diabetic foot ulcer Problem: Chronic Qualifiers: Diabetic foot ulcer location: other Diabetes mellitus type: type 2 Laterality: right Non-pressure ulcer stage: with fat layer exposed Qualified Code(s): E11.621 - Type 2 diabetes mellitus with foot ulcer; L97.512 - Non-pressure chronic ulcer of other part of right foot with fat layer exposed Narrative: New dressing applied to right foot ulceration. (3) Osteomyelitis of right foot Problem: Acute Qualifiers: Osteomyelitis type: unspecified type Qualified Code(s): M86.9 - Osteomyelitis, unspecified Narrative: Discussed with pt results of MRI, concerning for osteomylitis of the distal half of the remaining 1st metatarsal bone. Pt called his Rima Salazar, with whom I spoke, about further treatment options. Pt does not wish to have [facility] IV ABX therapy as previously discussed. Pt/girlfriend would like transfer to [place] to be under the care of his previous surgeon for any surgical care that needs to be done to this foot. Will discuss with PCP for transfer.
[2017-03-05] MEDS: MONTELUKAST SODIUM 10 MG TABLET PO SCH (20:20)
[2017-03-05] MEDS ORDERED: LEVOFLOXACIN/D5W 750 MG/150 ML BAG IV SCH (23:00)
[2017-03-06] LABS: Alpha-1-Antitrypsin Quant* 193 mg/dL (83-199); Cockroach Class 0
[2017-03-06] MEDS: chlorproMAZINE HCL 10 MG in NORMAL SALINE 50 ML IV SCH ×6 (02:40→23:41)
[2017-03-06] MEDS: VANCOMYCIN HCL 1.75 GM in DEXTROSE 5 % IN WATER 500 ML IV SCH ×4 (03:06→14:36)
[2017-03-06] MEDS: MECLIZINE HCL 25 MG TABLET PO SCH ×6 (04:00→23:45)
[2017-03-06 05:37] LABS: Hematocrit 29.3 % (42.0-52.0); Hemoglobin 9.7 gm/dL (13.5-18.0); Mean Cell Volume 86.4 fl (78-100); Mean Corpuscular Hemoglobin 28.6 pg (27-31); Mean Corpuscular Hgb Conc 33.1 g/dl (32-36); Mean Platelet Volume 8.7 fl (6.0-9.5); Neutrophil % 61.2 % (42-75.0); Platelet Count 287 K/mm3 (150-450); Red Blood Count 3.39 M/mm3 (4.7-6.0); Red Cell Distribution Width 14.5 % (11.5-14.0); White Blood Count 6.5 K/mm3 (4.0-10.5)
[2017-03-06 05:59] LABS: Anion Gap 13.4 mmol/L (6.8-13.8); BUN/Creatinine Ratio 5.1 (9.0-21.6); Calcium * 8.3 mg/dL (7.9-10.9); Carbon Dioxide 24.2 mmol/L (24-32.6); Potassium 3.6 mmol/L (3.4-4.6)
[2017-03-06] MEDS: PANTOPRAZOLE SODIUM 40 MG TABLET.EC PO SCH (06:54)
[2017-03-06] MEDS: INSULIN LISPRO 100 UNITS/ML VIAL SC SCH ×4 (06:54→21:55)
[2017-03-06] MEDS: INSULIN GLARGINE,HUM.REC.ANLOG 100 UNITS/ML VIAL SC SCH ×2 (06:57→17:30)
[2017-03-06] MEDS ORDERED: INSULIN GLARGINE,HUM.REC.ANLOG 100 UNITS/ML VIAL SC SCH (07:57)
[2017-03-06] MEDS: KETOROLAC TROMETHAMINE 30 MG/ML VIAL IV SCH ×3 (09:14→19:32)
[2017-03-06] MEDS: LOSARTAN POTASSIUM 50 MG TABLET PO SCH (09:15)
[2017-03-06] MEDS: ENOXAPARIN SODIUM 40 MG/0.4 ML SYRG SC SCH (09:15)
[2017-03-06] MEDS: ASPIRIN 325 MG TABLET.DR PO SCH (09:15)
[2017-03-06] MEDS: LORATADINE 10 MG TABLET PO SCH (09:16)
[2017-03-06] MEDS: MORPHINE SULFATE 15 MG TABLET.SA PO SCH ×2 (09:17→19:32)
[2017-03-06] MEDS: POTASSIUM CHLORIDE 40 MEQ in 0.5 NORMAL SALINE 1,000 ML IV SCH ×4 (09:19→23:48)
[2017-03-06] MEDS: FAMOTIDINE 20 MG TABLET PO SCH ×2 (09:21→20:03)
[2017-03-06] MEDS: FLUTICASONE/SALMETEROL 14 PUFF DISK.W.DEV IH SCH ×2 (09:22→20:04)
[2017-03-06] MEDS: CLOPIDOGREL BISULFATE 75 MG TABLET PO SCH (09:22)
[2017-03-06] MEDS: TIOTROPIUM BROMIDE 5 CAP INHALER IH SCH (09:22)
[2017-03-06] MEDS: HYDROmorphone HCL 1 MG/ML DISP.SYRIN IV PRN (11:34)
[2017-03-06] MEDS: AMPICILLIN SODIUM 2,000 MG in NORMAL SALINE 100 ML IV SCH ×2 (17:29→23:46)
[2017-03-06] MEDS: SULFAMETHOXAZOLE IV SCH ×2 (19:57)
[2017-03-06] MEDS: TRIMETHOPRIM IV SCH ×2 (19:57)
[2017-03-06] MEDS: WATER IV SCH ×2 (19:57)
[2017-03-06] MEDS: DEXTROSE IV SCH ×2 (19:57)
--- NOTE | 2017-03-06 20:02 | PN ---
Subjective - Date and Time Seen Date: 03/06/17 Time: 07:30 Subjective Narrative: Osteomyelitis right great toe metatarsal. Needs surgery. He wants it done at [facility]. He is concerned about pain control in his lower thoracic area and in his right foot. He is also concerned about his elevated sugars. I will take care of all three of these issues. Final blood cultures are still pending. Objective - Review of Systems Generalized/Overall Review: Reports: Malaise EENTM: Reports: No Symptoms Reported Respiratory: Reports: Cough Cardiac: Reports: No Symptoms Reported Abdominal: Reports: No Symptoms Reported Genitourinary Symptoms: Reports: No Symptoms Reported Musculoskeletal Complaints: Reports: Joint Pain, Back Pain Neurological: Reports: No Symptoms Reported, Headache Skin: Reports: No Symptoms Reported Endocrine: Reports: Other Misc: All systems neg except as marked - Vitals Vitals: Last Vital Signs Selected Entries 03/05/17 03/05/17 03/06/17 00:00 03:00 00:19 Temperature 38.5 C H 37.1 C 37.0 C Temperature Oral Oral Oral Source Pulse Rate 107 H 113 H Respiratory 22 H 20 Rate Blood Pressure 126/62 132/85 Blood Pressure 100 Mean Blood Pressure Supine Supine Position O2 Sat by Pulse 96 98 Oximetry Oxygen Delivery Nasal Cannula Room Air Method Oxygen Flow 2 Rate 03/06/17 04:42 Temperature Temperature Source Pulse Rate 78 Respiratory Rate Blood Pressure Blood Pressure Mean Blood Pressure Position O2 Sat by Pulse Oximetry Oxygen Delivery Method Oxygen Flow Rate - Abnormal Lab Findings Abnormal Lab Findings: Abnormal Lab Results 03/04/17 03/06/17 03/06/17 Range/Units 05:00 05:30 05:30 RBC 3.39 L (4.7-6.0) M/mm3 Hgb 9.7 L (13.5-18.0) gm/dL Hct 29.3 L (42.0-52.0) % RDW 14.5 H (11.5-14.0) % Immature Gran % (Auto) 1.10 H (0.001-0.429) % Immature Gran # (Auto) 0.07 H (0.000-0.0310) K/mm3 Plasma Sodium 143 H (130-142) mmol/L Chloride 107 H (97-106) mmol/L BUN 5 L (6-23) mg/dL BUN/Creatinine Ratio 5.1 L (9.0-21.6) Random Glucose 216 H D (70-110) mg/dL IgE 118 H kU/L - Exam Constitutional: Present: Alert, Oriented x3, Cooperative, Well developed, Well nourished, No distress ENT Exam: Present: normal ENT inspection, hearing grossly normal Neck: Present: normal inspection Respiratory: Present: lungs clear, normal breath sounds Cardiovascular/Chest: Present: normal peripheral pulses, regular rate, rhythm, no JVD Abdomen: Present: Normal bowel sounds, soft, nontender, nondistended, no rebound tenderness, no hepatospenomegaly, no masses Extremity: Present: other - I did not remove the dressing from his right foot Skin Exam: Present: normal color, warm/dry, no cyanosis Neurologic: Present: alert, oriented x 3 Appearance: Present: appropriate appearance, appropriate insight, neat, no memory impairment Eye contact: Present: cooperative, good eye contact, normal speech Thoughts: Present: normal thought pattern Cauti Physician Documentation - Urinary Catheter Management Urethral (Correa) Date of Insertion: 03/03/17 Time of Insertion: 11:09 Date of Removal: 03/04/17 Time of Removal: 15:30 Assessment/Plan Plan Narrative: I will call the [facility] and begin the transfer process. Await final blood culture results. Adjust insulin. Adjust pain medication. - Problems/Diagnosis (1) Severe sepsis Problem: Acute (2) COPD (chronic obstructive pulmonary disease) Problem: Acute (3) Tinnitus aurium Problem: Acute (4) Migraine Problem: Acute (5) Cellulitis Problem: Acute Qualifiers: Site of cellulitis: extremity Site of cellulitis of extremity: lower extremity Laterality: right Qualified Code(s): L03.115 - Cellulitis of right lower limb (6) Diabetic foot ulcer Problem: Chronic Qualifiers: Diabetic foot ulcer location: other Diabetes mellitus type: type 2 Laterality: right Non-pressure ulcer stage: with fat layer exposed Qualified Code(s): E11.621 - Type 2 diabetes mellitus with foot ulcer; L97.512 - Non-pressure chronic ulcer of other part of right foot with fat layer exposed (7) Fever Problem: Acute Qualifiers: Fever type: unspecified Qualified Code(s): R50.9 - Fever, unspecified (8) Vertigo Problem: Chronic (9) Diabetes Problem: Chronic Qualifiers: Diabetes mellitus type: type 2 Diabetes mellitus complication status: with circulatory complication (10) Bandemia Problem: Acute
[2017-03-06] MEDS: MONTELUKAST SODIUM 10 MG TABLET PO SCH (20:03)
[2017-03-07] MEDS: chlorproMAZINE HCL 10 MG in NORMAL SALINE 50 ML IV SCH ×6 (03:18→23:33)
[2017-03-07] MEDS: KETOROLAC TROMETHAMINE 30 MG/ML VIAL IV SCH ×4 (03:18→19:43)
[2017-03-07] MEDS: MECLIZINE HCL 25 MG TABLET PO SCH ×6 (03:19→23:54)
[2017-03-07] MEDS: AMPICILLIN SODIUM 2,000 MG in NORMAL SALINE 100 ML IV SCH ×4 (05:30→22:35)
[2017-03-07] MEDS: INSULIN GLARGINE,HUM.REC.ANLOG 100 UNITS/ML VIAL SC SCH ×2 (06:31→17:30)
[2017-03-07] MEDS: INSULIN LISPRO 100 UNITS/ML VIAL SC SCH ×4 (07:21→22:34)
[2017-03-07] MEDS: PANTOPRAZOLE SODIUM 40 MG TABLET.EC PO SCH (07:23)
[2017-03-07] MEDS: MORPHINE SULFATE 15 MG TABLET.SA PO SCH ×2 (08:00→19:42)
[2017-03-07] MEDS: FLUTICASONE/SALMETEROL 14 PUFF DISK.W.DEV IH SCH ×2 (08:00→22:31)
[2017-03-07] MEDS: ASPIRIN 325 MG TABLET.DR PO SCH (08:01)
[2017-03-07] MEDS: LOSARTAN POTASSIUM 50 MG TABLET PO SCH (08:02)
[2017-03-07] MEDS: ENOXAPARIN SODIUM 40 MG/0.4 ML SYRG SC SCH (08:02)
[2017-03-07] MEDS: LORATADINE 10 MG TABLET PO SCH (08:02)
[2017-03-07] MEDS: CLOPIDOGREL BISULFATE 75 MG TABLET PO SCH (08:02)
[2017-03-07] MEDS: FAMOTIDINE 20 MG TABLET PO SCH ×2 (08:02→22:32)
[2017-03-07] MEDS: TIOTROPIUM BROMIDE 5 CAP INHALER IH SCH (08:03)
[2017-03-07] MEDS: TRIMETHOPRIM IV SCH ×4 (08:07→19:43)
[2017-03-07] MEDS: SULFAMETHOXAZOLE IV SCH ×4 (08:07→19:43)
[2017-03-07] MEDS: DEXTROSE IV SCH ×4 (08:07→19:43)
[2017-03-07] MEDS: WATER IV SCH ×4 (08:07→19:43)
[2017-03-07] MEDS: POTASSIUM CHLORIDE 40 MEQ in 0.5 NORMAL SALINE 1,000 ML IV SCH (14:00)
--- NOTE | 2017-03-07 17:19 | PN ---
Subjective - Date and Time Seen Date: 03/07/17 Time: 06:30 Subjective Narrative: Osteomyelitis right great toe metatarsal. Needs surgery. He wants it done at [facility]. His pain control and blood sugar control are much better. Are still waiting on open bed in [place]. Final cultures are back. Objective - Review of Systems Generalized/Overall Review: Reports: No Symptoms Reported EENTM: Reports: No Symptoms Reported Respiratory: Reports: No Symptoms Reported Cardiac: Reports: No Symptoms Reported Abdominal: Reports: No Symptoms Reported Genitourinary Symptoms: Reports: No Symptoms Reported Musculoskeletal Complaints: Reports: Back Pain, Other - foot pain Neurological: Reports: No Symptoms Reported Skin: Reports: No Symptoms Reported Endocrine: Reports: No Symptoms Reported Misc: All systems neg except as marked - Vitals Vitals: Last Vital Signs Selected Entries 03/07/17 03:11 Temperature 36.3 C L Temperature Temporal Artery Source Scan Pulse Rate 93 Pulse Rhythm Regular Respiratory 18 Rate Respiratory Normal Depth Respiratory Normal Effort Non-Labored Blood Pressure 112/68 Blood Pressure Supine Position O2 Sat by Pulse 93 Oximetry Oxygen Delivery Room Air Method - Exam Constitutional: Present: Alert, Oriented x3, Cooperative, Well developed, Well nourished, No distress ENT Exam: Present: normal ENT inspection Neck: Present: supple Respiratory: Present: lungs clear, no respiratory distress Cardiovascular/Chest: Present: regular rate, rhythm, no chest tenderness Abdomen: Present: Normal bowel sounds, soft, nontender, nondistended, no rebound tenderness, no hepatospenomegaly, no masses Extremity: Present: other - dressing not removed. Neurologic: Present: alert, oriented x 3 Appearance: Present: appropriate appearance, appropriate insight, neat, no memory impairment Eye contact: Present: cooperative, good eye contact, normal speech Thoughts: Present: normal thought pattern Cauti Physician Documentation - Urinary Catheter Management Urethral (Correa) Date of Insertion: 03/03/17 Time of Insertion: 11:09 Date of Removal: 03/04/17 Time of Removal: 15:30 Assessment/Plan Plan Narrative: Same. Adjust antibiotics. Await bed in [place]. - Problems/Diagnosis (1) Severe sepsis Problem: Acute (2) COPD (chronic obstructive pulmonary disease) Problem: Acute (3) Tinnitus aurium Problem: Acute (4) Migraine Problem: Acute (5) Cellulitis Problem: Acute Qualifiers: Site of cellulitis: extremity Site of cellulitis of extremity: lower extremity Laterality: right Qualified Code(s): L03.115 - Cellulitis of right lower limb (6) Diabetic foot ulcer Problem: Chronic Qualifiers: Diabetic foot ulcer location: other Diabetes mellitus type: type 2 Laterality: right Non-pressure ulcer stage: with fat layer exposed Qualified Code(s): E11.621 - Type 2 diabetes mellitus with foot ulcer; L97.512 - Non-pressure chronic ulcer of other part of right foot with fat layer exposed (7) Fever Problem: Acute Qualifiers: Fever type: unspecified Qualified Code(s): R50.9 - Fever, unspecified (8) Vertigo Problem: Chronic (9) Diabetes Problem: Chronic Qualifiers: Diabetes mellitus type: type 2 Diabetes mellitus complication status: with circulatory complication (10) Bandemia Problem: Acute
[2017-03-07] MEDS: MONTELUKAST SODIUM 10 MG TABLET PO SCH (22:32)
[2017-03-08] MEDS: KETOROLAC TROMETHAMINE 30 MG/ML VIAL IV SCH ×4 (02:34→20:55)
[2017-03-08] MEDS: chlorproMAZINE HCL 10 MG in NORMAL SALINE 50 ML IV SCH ×6 (03:06→22:52)
[2017-03-08] MEDS: MECLIZINE HCL 25 MG TABLET PO SCH ×5 (04:21→20:55)
[2017-03-08] MEDS: AMPICILLIN SODIUM 2,000 MG in NORMAL SALINE 100 ML IV SCH ×4 (05:21→23:17)
[2017-03-08] MEDS: INSULIN GLARGINE,HUM.REC.ANLOG 100 UNITS/ML VIAL SC SCH ×2 (05:44→21:24)
[2017-03-08] MEDS: INSULIN LISPRO 100 UNITS/ML VIAL SC SCH ×4 (07:33→20:56)
[2017-03-08] MEDS: PANTOPRAZOLE SODIUM 40 MG TABLET.EC PO SCH (07:35)
[2017-03-08] MEDS: POTASSIUM CHLORIDE 40 MEQ in 0.5 NORMAL SALINE 1,000 ML IV SCH ×2 (07:41→22:58)
[2017-03-08] MEDS: FAMOTIDINE 20 MG TABLET PO SCH ×2 (08:07→21:26)
[2017-03-08] MEDS: CLOPIDOGREL BISULFATE 75 MG TABLET PO SCH (08:07)
[2017-03-08] MEDS: TIOTROPIUM BROMIDE 5 CAP INHALER IH SCH (08:08)
[2017-03-08] MEDS: ASPIRIN 325 MG TABLET.DR PO SCH (08:11)
[2017-03-08] MEDS: LORATADINE 10 MG TABLET PO SCH (08:11)
[2017-03-08] MEDS: FLUTICASONE/SALMETEROL 14 PUFF DISK.W.DEV IH SCH ×2 (08:11→21:00)
[2017-03-08] MEDS: LOSARTAN POTASSIUM 50 MG TABLET PO SCH (08:12)
[2017-03-08] MEDS: WATER IV SCH ×4 (08:17→19:31)
[2017-03-08] MEDS: DEXTROSE IV SCH ×4 (08:17→19:31)
[2017-03-08] MEDS: TRIMETHOPRIM IV SCH ×4 (08:17→19:31)
[2017-03-08] MEDS: SULFAMETHOXAZOLE IV SCH ×4 (08:17→19:31)
[2017-03-08] MEDS: MORPHINE SULFATE 15 MG TABLET.SA PO SCH ×2 (08:30→16:46)
[2017-03-08] MEDS: ENOXAPARIN SODIUM 40 MG/0.4 ML SYRG SC SCH (08:32)
[2017-03-08] MEDS ORDERED: INSULIN GLARGINE,HUM.REC.ANLOG 100 UNITS/ML VIAL SC SCH ×2 (09:00→21:00)
--- NOTE | 2017-03-08 10:33 | PN ---
Subjective - Date and Time Seen Date: 03/08/17 Time: 10:29 Subjective Narrative: Osteomyelitis right great toe metatarsal. Needs surgery. He wants it done at [facility]. His pain control is better, his sugars are running low and rebounding. Are still waiting on open bed in [place]. Final cultures are back. Objective - Review of Systems Generalized/Overall Review: Reports: No Symptoms Reported EENTM: Reports: No Symptoms Reported Respiratory: Reports: No Symptoms Reported Cardiac: Reports: No Symptoms Reported Abdominal: Reports: No Symptoms Reported Genitourinary Symptoms: Reports: No Symptoms Reported Musculoskeletal Complaints: Reports: Joint Pain Neurological: Reports: No Symptoms Reported Skin: Reports: No Symptoms Reported Endocrine: Reports: No Symptoms Reported Misc: All systems neg except as marked - Vitals Vitals: Last Vital Signs Selected Entries 03/08/17 03/08/17 06:49 08:12 Temperature 36.8 C Pulse Rate 88 86 Respiratory 16 Rate Blood Pressure 124/68 129/80 Blood Pressure Supine Position O2 Sat by Pulse 98 Oximetry Oxygen Delivery Room Air Method - Exam Constitutional: Present: Alert, Oriented x3, Cooperative, Well developed, Well nourished, No distress ENT Exam: Present: normal ENT inspection, hearing grossly normal Neck: Present: normal inspection Respiratory: Present: normal breath sounds, no respiratory distress Cardiovascular/Chest: Present: regular rate, rhythm, no murmur Abdomen: Present: Normal bowel sounds, soft, nontender, nondistended, no rebound tenderness, no hepatospenomegaly, no masses Extremity: Present: other - dressing not removed Neurologic: Present: alert, oriented x 3 Appearance: Present: appropriate appearance, appropriate insight, neat, no memory impairment Eye contact: Present: cooperative, good eye contact, normal speech Thoughts: Present: normal thought pattern Cauti Physician Documentation - Urinary Catheter Management Urethral (Correa) Date of Insertion: 03/03/17 Time of Insertion: 11:09 Date of Removal: 03/04/17 Time of Removal: 15:30 Assessment/Plan Plan Narrative: Adjust Lantus. Wait for bed. - Problems/Diagnosis (1) Severe sepsis Problem: Acute (2) COPD (chronic obstructive pulmonary disease) Problem: Acute (3) Tinnitus aurium Problem: Acute (4) Migraine Problem: Acute (5) Cellulitis Problem: Acute Qualifiers: Site of cellulitis: extremity Site of cellulitis of extremity: lower extremity Laterality: right Qualified Code(s): L03.115 - Cellulitis of right lower limb (6) Diabetic foot ulcer Problem: Chronic Qualifiers: Diabetic foot ulcer location: other Diabetes mellitus type: type 2 Laterality: right Non-pressure ulcer stage: with fat layer exposed Qualified Code(s): E11.621 - Type 2 diabetes mellitus with foot ulcer; L97.512 - Non-pressure chronic ulcer of other part of right foot with fat layer exposed (7) Fever Problem: Acute Qualifiers: Fever type: unspecified Qualified Code(s): R50.9 - Fever, unspecified (8) Vertigo Problem: Chronic (9) Diabetes Problem: Chronic Qualifiers: Diabetes mellitus type: type 2 Diabetes mellitus complication status: with circulatory complication (10) Bandemia Problem: Acute (11) Hypoglycemia Problem: Acute
[2017-03-08] MEDS: HYDROmorphone HCL 1 MG/ML DISP.SYRIN IV PRN ×2 (12:15→19:21)
[2017-03-08] MEDS: MONTELUKAST SODIUM 10 MG TABLET PO SCH (21:26)
[2017-03-09] MEDS: MECLIZINE HCL 25 MG TABLET PO SCH ×4 (00:46→11:49)
[2017-03-09] MEDS: MORPHINE SULFATE 15 MG TABLET.SA PO SCH ×2 (00:46→08:38)
[2017-03-09] MEDS: KETOROLAC TROMETHAMINE 30 MG/ML VIAL IV SCH ×2 (03:10→08:40)
[2017-03-09] MEDS: chlorproMAZINE HCL 10 MG in NORMAL SALINE 50 ML IV SCH ×3 (03:11→11:01)
[2017-03-09] MEDS: AMPICILLIN SODIUM 2,000 MG in NORMAL SALINE 100 ML IV SCH ×2 (04:30→11:49)
[2017-03-09] MEDS: INSULIN LISPRO 100 UNITS/ML VIAL SC SCH (06:55)
[2017-03-09] MEDS: PANTOPRAZOLE SODIUM 40 MG TABLET.EC PO SCH (06:56)
[2017-03-09] MEDS: HYDROmorphone HCL 1 MG/ML DISP.SYRIN IV PRN (07:03)
[2017-03-09] MEDS: DEXTROSE IV SCH ×2 (07:32)
[2017-03-09] MEDS: WATER IV SCH ×2 (07:32)
[2017-03-09] MEDS: SULFAMETHOXAZOLE IV SCH ×2 (07:32)
[2017-03-09] MEDS: TRIMETHOPRIM IV SCH ×2 (07:32)
[2017-03-09 07:58] LABS: Hematocrit 31.7 % (42.0-52.0); Hemoglobin 10.3 gm/dL (13.5-18.0); Mean Cell Volume 88.1 fl (78-100); Mean Corpuscular Hemoglobin 28.6 pg (27-31); Mean Corpuscular Hgb Conc 32.5 g/dl (32-36); Mean Platelet Volume 8.5 fl (6.0-9.5); Platelet Count 310 K/mm3 (150-450); Red Cell Distribution Width 14.2 % (11.5-14.0); White Blood Count 7.9 K/mm3 (4.0-10.5)
[2017-03-09 08:07] LABS: Anion Gap 12.7 mmol/L (6.8-13.8); BUN/Creatinine Ratio 7.2 (9.0-21.6); Calcium * 8.8 mg/dL (7.9-10.9); Carbon Dioxide 28.7 mmol/L (24-32.6); Estimated Creat Clear 74.5; Potassium 4.4 mmol/L (3.4-4.6)
[2017-03-09 08:22] LABS: Total Cells Counted 100
[2017-03-09 08:29] LABS: Atypical (Reactive) Lymph 2 % (0-2); Band 3 % (0-2.0); Eosinophil 4 % (0-3); Lymphocyte 28 % (20-51); Monocyte 3 % (0-9); Neutrophil 58 % (42-75); Neutrophil # 4.6 K/mm3 (1.3-6.0); Platelet Estimate Normal (NORMAL)
[2017-03-09 08:31] LABS: Hypochromia 1+; Polychromasia Trace
[2017-03-09] MEDS: LOSARTAN POTASSIUM 50 MG TABLET PO SCH (08:39)
[2017-03-09] MEDS: ASPIRIN 325 MG TABLET.DR PO SCH (08:39)
[2017-03-09] MEDS: LORATADINE 10 MG TABLET PO SCH (08:39)
[2017-03-09] MEDS: CLOPIDOGREL BISULFATE 75 MG TABLET PO SCH (08:40)
[2017-03-09] MEDS: FAMOTIDINE 20 MG TABLET PO SCH (08:40)
[2017-03-09] MEDS: INSULIN GLARGINE,HUM.REC.ANLOG 100 UNITS/ML VIAL SC SCH (08:41)
[2017-03-09] MEDS: ENOXAPARIN SODIUM 40 MG/0.4 ML SYRG SC SCH (08:42)
[2017-03-09] MEDS: FLUTICASONE/SALMETEROL 14 PUFF DISK.W.DEV IH SCH (08:42)
[2017-03-09] MEDS: TIOTROPIUM BROMIDE 5 CAP INHALER IH SCH (08:42)
[2017-03-09 09:21] VITALS: BP 126/59
[2017-03-09 09:24] LABS: Immature Granulocyte 2 (0-1)
--- NOTE | 2017-03-09 11:22 | DS ---
<Bill Talley - Last Filed: 03/09/17 16:22> Transfer Discharge Summary - Diagnosis(s)/Problems (1) Severe sepsis Narrative: A bed finally opened up at the [facility]. He is still willing to go. They are still willing to accept him, so we transferred him. I personally directed all of our nurse practitioner hospitalist's care for this patient. Problem: Acute (2) COPD (chronic obstructive pulmonary disease) Problem: Acute (3) Tinnitus aurium Problem: Acute (4) Migraine Problem: Acute (5) Cellulitis Problem: Acute (6) Diabetic foot ulcer Problem: Chronic (7) Fever Problem: Acute (8) Vertigo Problem: Chronic (9) Diabetes Problem: Chronic (10) Bandemia Problem: Acute (11) Hypoglycemia Problem: Acute - Course Procedures Performed: none - d - Results and Findings Results and Findings: Laboratory Results - last 24 hr 03/09/17 03/09/17 07:50 07:50 WBC 7.9 RBC 3.60 L Hgb 10.3 L Hct 31.7 L MCV 88.1 MCH 28.6 MCHC 32.5 RDW 14.2 H Plt Count 310 MPV 8.5 Neutrophils % (Manual) 58 Band Neuts % (Manual) 3 H Lymphocytes % (Manual) 28 Monocytes % (Manual) 3 Eosinophils % (Manual) 4 H Immature Granulocytes 2 H Neutrophils # (Manual) 4.6 Lymphocytes # (Manual) 2.2 Monocytes # (Manual) 0.2 Eosinophils # (Manual) 0.3 Atypic/Reactive Lymphs 2 Toxic Vacuolation Trace Platelet Estimate Normal Polychromasia Trace Hypochromasia 1+ Sodium 142 Plasma Sodium 142 Potassium 4.4 D Chloride 105 Carbon Dioxide 28.7 Anion Gap 12.7 BUN 9 D Creatinine 1.25 Est GFR (Non-Af Amer) 65 D BUN/Creatinine Ratio 7.2 L Random Glucose 86 Calcium 8.8 - Medications Medications: Active Medications Discontinued Medications Acetaminophen (Tylenol) 650 mg PO ONCE ONE Stop: 03/02/17 21:23 Last Admin: 03/02/17 21:30 Dose: 650 mg Acetaminophen (Tylenol) 650 mg PO Q6H PRN PRN Reason: Mild pain Stop: 04/02/17 02:22 Last Admin: 03/04/17 23:03 Dose: 650 mg Acetaminophen/Hydrocodone Bitart (Branch 5-325) 1 each PO Q6H PRN PRN Reason: Pain Stop: 04/02/17 01:38 Last Admin: 03/05/17 19:23 Dose: 1 each Ascorbic Acid (Vitamin C) 1,500 mg IV Q6H MICHELLE Stop: 04/02/17 11:01 Last Admin: 03/03/17 12:23 Dose: Not Given Aspirin (Aspirin Enteric Coated) 325 mg PO DAILY MICHELLE Stop: 04/02/17 09:01 Last Admin: 03/09/17 08:39 Dose: 325 mg Clopidogrel Bisulfate (Plavix) 75 mg PO DAILY MICHELLE Stop: 04/02/17 09:01 Last Admin: 03/09/17 08:40 Dose: 75 mg Diphenhydramine HCl (Benadryl) 12.5 mg IV Q6H PRN PRN Reason: Headache Stop: 04/02/17 08:10 Last Admin: 03/03/17 08:46 Dose: 12.5 mg Enoxaparin Sodium (Lovenox) 40 mg SC Q24H [facility] Stop: 04/02/17 09:01 Last Admin: 03/09/17 08:42 Dose: 40 mg Famotidine (Pepcid) 20 mg PO BID [facility] Stop: 04/02/17 09:01 Last Admin: 03/09/17 08:40 Dose: 20 mg Heparin Sodium (Porcine) (Heparin Sodium) 5,000 units SC Q8H [facility] Stop: 04/02/17 00:31 Last Admin: 03/03/17 01:16 Dose: 5,000 units Hydromorphone HCl (Dilaudid) 0.5 mg IV Q2H PRN PRN Reason: Pain Stop: 04/05/17 08:03 Last Admin: 03/08/17 12:15 Dose: 0.5 mg Hydromorphone HCl (Dilaudid) 0.7 mg IV Q2H PRN PRN Reason: Pain Stop: 04/05/17 08:03 Last Admin: 03/09/17 07:03 Dose: 0.7 mg Sodium Chloride (Sodium Chloride 0.9%) 1,000 mls @ 999 mls/hr IV .Q1H1M PRN PRN Reason: HYDRATION Last Infusion: 03/03/17 11:41 Dose: Infused Levofloxacin/Dextrose (Levaquin) 750 mg in 150 mls @ 100 mls/hr IV Q24H [facility]HELLE PRN Reason: Protocol Stop: 04/01/17 23:01 Last Infusion: 03/05/17 00:34 Dose: Infused Vancomycin HCl 1.5 gm/ (Dextrose/Water) 500 mls @ 250 mls/hr IV Q12H [facility]HELLE PRN Reason: Protocol Stop: 04/01/17 23:31 Last Infusion: 03/03/17 04:40 Dose: Infused Sodium Chloride (Sodium Chloride 0.9%) 1,000 mls @ 125 mls/hr IV .Q8H PRN PRN Reason: HYDRATION Last Infusion: 03/03/17 11:50 Dose: Infused Potassium Chloride (Kcl 10 Meq/100 Ml Piggyback) 100 mls @ 100 mls/hr IV Q1H [facility]LE Stop: 03/03/17 10:59 Last Admin: 03/03/17 10:08 Dose: Not Given Vancomycin HCl 1.75 gm/ (Dextrose/Water) 500 mls @ 250 mls/hr IV Q12H [facility]LE PRN Reason: Protocol Stop: 04/02/17 11:31 Last Infusion: 03/04/17 01:05 Dose: Infused Potassium Chloride 40 meq/ (Sodium Chloride) 1,020 mls @ 125 mls/hr IV .Q8H10M [facility]LE Stop: 04/02/17 08:16 Last Infusion: 03/04/17 07:26 Dose: Infused Chlorpromazine HCl 10 mg/ (Sodium Chloride) 50.4 mls @ 300 mls/hr IV Q4H [facility]LE Stop: 04/02/17 08:31 Last Infusion: 03/03/17 18:52 Dose: Infused Sodium Chloride (Sodium Chloride 0.9%) 1,000 mls @ 125 mls/hr IV .Q8H ONE Stop: 03/03/17 18:33 Last Admin: 03/03/17 11:31 Dose: Not Given Hydrocortisone Sodium Succinate 50 mg/ Dextrose/Water 51 mls @ 200 mls/hr IV Q6H MIC[facility]LE Stop: 04/02/17 11:01 Last Admin: 03/03/17 20:01 Dose: 200 mls/hr Thiamine HCl 200 mg/ Sodium (Chloride) 52 mls @ 100 mls/hr IV DAILY MICHELLE Stop: 04/02/17 11:01 Last Infusion: 03/04/17 09:19 Dose: Infused Ascorbic Acid 1,500 mg/ Sodium (Chloride) 253 mls @ 250 mls/hr IV Q6H [facility] Stop: 04/02/17 11:16 Last Infusion: 03/03/17 19:44 Dose: Infused Sodium Chloride (Sodium Chloride 0.9%) 1,000 mls @ 999 mls/hr IV .Q1H1M ONE Stop: 03/03/17 16:44 Last Admin: 03/03/17 17:03 Dose: Not Given Sodium Chloride (Sodium Chloride 0.9%) 1,000 mls @ 999 mls/hr IV .Q1H1M ONE Stop: 03/03/17 18:36 Last Infusion: 03/03/17 18:37 Dose: Infused Ascorbic Acid 1,500 mg/ Sodium (Chloride) 253 mls @ 250 mls/hr IV Q6H [facility] Stop: 04/03/17 01:01 Last Infusion: 03/04/17 07:38 Dose: Infused Chlorpromazine HCl 10 mg/ (Sodium Chloride) 50.4 mls @ 300 mls/hr IV Q4H [facility] Stop: 04/02/17 23:01 Last Admin: 03/09/17 11:01 Dose: 300 mls/hr Hydrocortisone Sodium Succinate 50 mg/ Dextrose/Water 51 mls @ 200 mls/hr IV Q6H [facility] Stop: 04/03/17 02:01 Last Infusion: 03/04/17 02:38 Dose: Infused Potassium Chloride 40 meq/ (Sodium Chloride) 1,020 mls @ 80 mls/hr IV .[id number] [facility] Stop: 04/03/17 07:27 Last Admin: 03/08/17 22:58 Dose: 80 mls/hr Vancomycin HCl 1.75 gm/ (Dextrose/Water) 500 mls @ 250 mls/hr IV ONCE ONE PRN Reason: Protocol Stop: 03/04/17 16:29 Last Infusion: 03/04/17 16:13 Dose: Infused Vancomycin HCl 1.75 gm/ Sodium (Chloride) 500 mls @ 250 mls/hr IV Q12H [facility] PRN Reason: Protocol Stop: 03/05/17 04:29 Last Infusion: 03/05/17 05:09 Dose: Infused Vancomycin HCl 1.75 gm/ (Dextrose/Water) 500 mls @ 250 mls/hr IV Q12H [facility] PRN Reason: Protocol Stop: 04/04/17 14:31 Last Admin: 03/06/17 14:36 Dose: 250 mls/hr Levofloxacin/Dextrose (Levaquin) 750 mg in 150 mls @ 100 mls/hr IV Q24H MICHELLE PRN Reason: Protocol Stop: 04/04/17 23:01 Last Admin: 03/05/17 23:40 Dose: 100 mls/hr Ampicillin Sodium 2,000 mg/ (Sodium Chloride) 100 mls @ 200 mls/hr IV Q6H MICHELLE PRN Reason: Protocol Stop: 04/05/17 17:16 Last Admin: 03/09/17 11:49 Dose: 200 mls/hr Trimethoprim/Sulfamethoxazole (20 ml/ Dextrose/Water) 520 mls @ 346.667 mls/hr IV Q12H [facility] PRN Reason: Protocol Stop: 04/05/17 19:01 Last Admin: 03/09/17 07:32 Dose: 346 mls/hr Insulin Glargine (Lantus) 53 units SC BID [facility] Stop: 04/02/17 09:01 Last Admin: 03/03/17 20:03 Dose: 53 units Insulin Glargine (Lantus) 60 units SC Q12H [facility] Stop: 04/03/17 07:31 Last Admin: 03/06/17 06:57 Dose: 60 units Insulin Glargine (Lantus) 80 units SC Q12H [facility] Stop: 04/03/17 07:31 Last Admin: 03/06/17 09:17 Dose: 20 units Insulin Glargine (Lantus) 95 units SC Q12H [facility] Stop: 04/05/17 17:21 Last Admin: 03/08/17 05:44 Dose: Not Given Insulin Glargine (Lantus) 100 units SC QAM [facility] Stop: 04/07/17 09:01 Last Admin: 03/08/17 08:33 Dose: 100 units Insulin Glargine (Lantus) 75 units SC Q12H [facility] Stop: 04/07/17 21:01 Last Admin: 03/09/17 08:41 Dose: 75 units Insulin Human Lispro (Humalog) 0 units SC ACHSINS [facility] PRN Reason: Protocol Stop: 04/02/17 07:01 Last Admin: 03/09/17 06:55 Dose: Not Given Ketorolac Tromethamine (Toradol) 15 mg IV Q6H PRN PRN Reason: Headache Stop: 03/08/17 08:10 Last Admin: 03/05/17 23:39 Dose: 15 mg Ketorolac Tromethamine (Toradol) 30 mg IV Q6H [facility] Stop: 03/11/17 08:31 Last Admin: 03/09/17 08:40 Dose: 30 mg Lisinopril (Zestril) 20 mg PO DAILY [facility] Stop: 04/02/17 09:01 Last Admin: 03/03/17 08:52 Dose: 20 mg Loratadine (Claritin) 10 mg PO DAILY [facility] Stop: 04/04/17 09:01 Last Admin: 03/09/17 08:39 Dose: 10 mg Losartan Potassium (Cozaar) 50 mg PO DAILY [facility] Stop: 04/03/17 09:01 Last Admin: 03/09/17 08:39 Dose: 50 mg Meclizine HCl (Antivert) 25 mg PO Q4H [facility] Stop: 04/02/17 08:16 Last Admin: 03/09/17 11:49 Dose: 25 mg Metoclopramide HCl (Reglan) 5 mg IV Q6H PRN PRN Reason: Headache Stop: 04/02/17 08:10 Last Admin: 03/05/17 09:14 Dose: 5 mg Montelukast Sodium (Singulair) 10 mg PO HS [facility] Stop: 04/03/17 21:01 Last Admin: 03/08/17 21:26 Dose: 10 mg Morphine Sulfate (Ms Contin) 15 mg PO Q12H [facility] Stop: 04/05/17 08:31 Last Admin: 03/08/17 08:30 Dose: 15 mg Morphine Sulfate (Ms Contin) 15 mg PO Q8H [facility] Stop: 04/07/17 16:31 Last Admin: 03/09/17 08:38 Dose: 15 mg Ondansetron HCl (Zofran) 4 mg IV ONCE ONE Stop: 03/02/17 22:01 Last Admin: 03/02/17 22:15 Dose: 4 mg Ondansetron HCl (Zofran) 4 mg IV Q4H PRN PRN Reason: Nausea And Vomiting Stop: 04/02/17 01:46 Last Admin: 03/03/17 02:05 Dose: 4 mg Pantoprazole Sodium (Protonix) 40 mg PO DAILY@0700 [facility] Stop: 04/05/17 07:01 Last Admin: 03/09/17 06:56 Dose: 40 mg Potassium Chloride (K-Dur) 40 meq PO ONCE ONE Stop: 03/03/17 00:18 Last Admin: 03/03/17 01:16 Dose: 40 meq Fluticasone/Salmeterol (Advair 500-50 Diskus) 1 puff IH BID [facility] Stop: 04/03/17 09:01 Last Admin: 03/09/17 08:42 Dose: 1 puff Tiotropium [place] (Spiriva) 1 cap IH DAILY [facility] Stop: 04/03/17 09:01 Last Admin: 03/09/17 08:42 Dose: 1 cap Vancomycin HCl (Vancomycin Level) 1 XX ONCE ONE Stop: 03/05/17 14:01 Last Admin: 03/05/17 14:57 Dose: 1 - Disposition Disposition: [facility] Condition: Fair <Mago Rosado - Last Filed: 03/25/17 01:42> Transfer Discharge Summary - Diagnosis(s)/Problems (1) Bandemia Problem: Acute (2) COPD (chronic obstructive pulmonary disease) Problem: Acute (3) Cellulitis Problem: Acute (4) Discharge planning issues Problem: Acute (5) Osteomyelitis of right foot Problem: Acute (6) Severe sepsis Problem: Acute (7) Diabetes Problem: Chronic (8) Diabetic foot ulcer Problem: Chronic (9) HTN (hypertension) Problem: Chronic - Course Description of Stay: Mr. Puentes is a 51-yr-old WM who receives his primary care at the [facility] in [place]. His PMH involves: CVA, DM II (Poorly Controlled), CAD; s/p PTCA & Stents. LT BKA, Kidney Stone. Pt states that he had been in his normal health until Friday 03/02 when he begun feeling dizzy at around 02.00 am. The dizziness gave him the 'sensation of room spinning.' He stayed in bed most of the day on Friday. He also reports having a cough that has been progressively getting worse for the last two days. He coughs up mostly white/ruiz phlegm. He denies feeling SOB and no pain with inspiration and expiration. He did have a fever last night that was over 100, but cannot recall the value exactly. He says that he got tired of feeling sick today and he called the EMS, & was brought to the [facility] ER. Off note, he has Diabetic ulcer on RT foot and he underwent Toe Amputation In October 2016 at the [facility]. He is followed by their Podiatry DrFelix Sarabia. On 02/14, he was admitted again at the [facility] for cellulitis in addition to a non-healing diabetic ulcer on RT foot. X-ray and MRI obtained in that hospitalization did not demonstrate Osteomyelitis. Pt reports that he was started on Oral Antibiotics (unsure but thinks Cipro & Flagyl) along with local wound care one week later. On Exam, he is noted to have erythema on the RT foot and a tunneling wound with serosanguinous drainage. During evaluation at the ED tonight, CXR obtained showed he had LLL Pneumonia. He was also found to be febrile with a temp of 39.4 and tachycardic. He had an elevated WBC of 12,900 with a Left Shift and Lactic Acid of 2.4. The inflammatory markers involving CRP & ESR were elevated at 19.8 & 63. No imaging of RT foot pending. Pt will need to be admitted inpatient for a minimum of 2 midnights due to Sepsis secondary to Pneumonia, Cellulitis of RT Foot, & Possible Osteomyelitis of the RT foot with requires further evaluation and treatment. Patient was started on levaquin and vanco. The following day the patient developed severe sepsis with hypotension and abnormal labs. This resolved with the infusion of multiple liters of NS iv fluids. IV fluids and iv abx were continued. MRI of the foot on 03/05/17 showed osteomyelitis to the distal one half of the remainder of the 1st metatarsal bone. Blood cultures grew staph aureus. and foot culture grew staph aureus and entercoccus. Again, iv fluids were continued and iv antibiotics were continued. The need for surgery to treat the osteomyelitis was discussed with the patient and the patient determined that he wanted to have the surgery at [facility], where he had previous surgeries done at. Although this was not deemed medically necessary. The transfer process began on 03/06/17 and the patient was accepted by [facility] on 03/06/17 but a bed was not available until 03/09/17. Patient was transferred to [facility] via ambulance on . - Results and Findings Results and Findings: Laboratory Results - last 24 hr 03/09/17 03/09/17 07:50 07:50 WBC 7.9 RBC 3.60 L Hgb 10.3 L Hct 31.7 L MCV 88.1 MCH 28.6 MCHC 32.5 RDW 14.2 H Plt Count 310 MPV 8.5 Neutrophils % (Manual) 58 Band Neuts % (Manual) 3 H Lymphocytes % (Manual) 28 Monocytes % (Manual) 3 Eosinophils % (Manual) 4 H Immature Granulocytes 2 H Neutrophils # (Manual) 4.6 Lymphocytes # (Manual) 2.2 Monocytes # (Manual) 0.2 Eosinophils # (Manual) 0.3 Atypic/Reactive Lymphs 2 Toxic Vacuolation Trace Platelet Estimate Normal Polychromasia Trace Hypochromasia 1+ Sodium 142 Plasma Sodium 142 Potassium 4.4 D Chloride 105 Carbon Dioxide 28.7 Anion Gap 12.7 BUN 9 D Creatinine 1.25 Est GFR (Non-Af Amer) 65 D BUN/Creatinine Ratio 7.2 L Random Glucose 86 Calcium 8.8 - Medications Medications: Active Medications Acetaminophen (Tylenol) 650 mg PO Q6H PRN PRN Reason: Mild pain Stop: 04/02/17 02:22 Last Admin: 03/04/17 23:03 Dose: 650 mg Aspirin (Aspirin Enteric Coated) 325 mg PO DAILY MICHELLE Stop: 04/02/17 09:01 Last Admin: 03/09/17 08:39 Dose: 325 mg Clopidogrel Bisulfate (Plavix) 75 mg PO DAILY [facility] Stop: 04/02/17 09:01 Last Admin: 03/09/17 08:40 Dose: 75 mg Diphenhydramine HCl (Benadryl) 12.5 mg IV Q6H PRN PRN Reason: Headache Stop: 04/02/17 08:10 Last Admin: 03/03/17 08:46 Dose: 12.5 mg Enoxaparin Sodium (Lovenox) 40 mg SC Q24H [facility] Stop: 04/02/17 09:01 Last Admin: 03/09/17 08:42 Dose: 40 mg Famotidine (Pepcid) 20 mg PO BID [facility] Stop: 04/02/17 09:01 Last Admin: 03/09/17 08:40 Dose: 20 mg Hydromorphone HCl (Dilaudid) 0.7 mg IV Q2H PRN PRN Reason: Pain Stop: 04/05/17 08:03 Last Admin: 03/09/17 07:03 Dose: 0.7 mg Chlorpromazine HCl 10 mg/ (Sodium Chloride) 50.4 mls @ 300 mls/hr IV Q4H [facility] Stop: 04/02/17 23:01 Last Admin: 03/09/17 11:01 Dose: 300 mls/hr Potassium Chloride 40 meq/ (Sodium Chloride) 1,020 mls @ 80 mls/hr IV .[id number] [facility] Stop: 04/03/17 07:27 Last Admin: 03/08/17 22:58 Dose: 80 mls/hr Ampicillin Sodium 2,000 mg/ (Sodium Chloride) 100 mls @ 200 mls/hr IV Q6H [facility]HELLE PRN Reason: Protocol Stop: 04/05/17 17:16 Last Admin: 03/09/17 04:30 Dose: 200 mls/hr Trimethoprim/Sulfamethoxazole (20 ml/ Dextrose/Water) 520 mls @ 346.667 mls/hr IV Q12H [facility] PRN Reason: Protocol Stop: 04/05/17 19:01 Last Admin: 03/09/17 07:32 Dose: 346 mls/hr Insulin Glargine (Lantus) 75 units SC Q12H [facility] Stop: 04/07/17 21:01 Last Admin: 03/09/17 08:41 Dose: 75 units Ketorolac Tromethamine (Toradol) 30 mg IV Q6H [facility] Stop: 03/11/17 08:31 Last Admin: 03/09/17 08:40 Dose: 30 mg Loratadine (Claritin) 10 mg PO DAILY [facility] Stop: 04/04/17 09:01 Last Admin: 03/09/17 08:39 Dose: 10 mg Losartan Potassium (Cozaar) 50 mg PO DAILY [facility] Stop: 04/03/17 09:01 Last Admin: 03/09/17 08:39 Dose: 50 mg Meclizine HCl (Antivert) 25 mg PO Q4H [facility] Stop: 04/02/17 08:16 Last Admin: 03/09/17 08:40 Dose: 25 mg Metoclopramide HCl (Reglan) 5 mg IV Q6H PRN PRN Reason: Headache Stop: 04/02/17 08:10 Last Admin: 03/05/17 09:14 Dose: 5 mg Montelukast Sodium (Singulair) 10 mg PO HS [facility] Stop: 04/03/17 21:01 Last Admin: 03/08/17 21:26 Dose: 10 mg Morphine Sulfate (Ms Contin) 15 mg PO Q8H [facility] Stop: 04/07/17 16:31 Last Admin: 03/09/17 08:38 Dose: 15 mg Pantoprazole Sodium (Protonix) 40 mg PO DAILY@0700 [facility] Stop: 04/05/17 07:01 Last Admin: 03/09/17 06:56 Dose: 40 mg Fluticasone/Salmeterol (Advair 500-50 Diskus) 1 puff IH BID [facility] Stop: 04/03/17 09:01 Last Admin: 03/09/17 08:42 Dose: 1 puff Tiotropium [place] (Spiriva) 1 cap IH DAILY [facility] Stop: 04/03/17 09:01 Last Admin: 03/09/17 08:42 Dose: 1 cap Discontinued Medications Acetaminophen (Tylenol) 650 mg PO ONCE ONE Stop: 03/02/17 21:23 Last Admin: 03/02/17 21:30 Dose: 650 mg Acetaminophen/Hydrocodone Bitart (Branch 5-325) 1 each PO Q6H PRN PRN Reason: Pain Stop: 04/02/17 01:38 Last Admin: 03/05/17 19:23 Dose: 1 each Ascorbic Acid (Vitamin C) 1,500 mg IV Q6H [facility] Stop: 04/02/17 11:01 Last Admin: 03/03/17 12:23 Dose: Not Given Heparin Sodium (Porcine) (Heparin Sodium) 5,000 units SC Q8H [facility] Stop: 04/02/17 00:31 Last Admin: 03/03/17 01:16 Dose: 5,000 units Hydromorphone HCl (Dilaudid) 0.5 mg IV Q2H PRN PRN Reason: Pain Stop: 04/05/17 08:03 Last Admin: 03/08/17 12:15 Dose: 0.5 mg Sodium Chloride (Sodium Chloride 0.9%) 1,000 mls @ 999 mls/hr IV .Q1H1M PRN PRN Reason: HYDRATION Last Infusion: 03/03/17 11:41 Dose: Infused Levofloxacin/Dextrose (Levaquin) 750 mg in 150 mls @ 100 mls/hr IV Q24H [facility] PRN Reason: Protocol Stop: 04/01/17 23:01 Last Infusion: 03/05/17 00:34 Dose: Infused Vancomycin HCl 1.5 gm/ (Dextrose/Water) 500 mls @ 250 mls/hr IV Q12H [facility] PRN Reason: Protocol Stop: 04/01/17 23:31 Last Infusion: 03/03/17 04:40 Dose: Infused Sodium Chloride (Sodium Chloride 0.9%) 1,000 mls @ 125 mls/hr IV .Q8H PRN PRN Reason: HYDRATION Last Infusion: 03/03/17 11:50 Dose: Infused Potassium Chloride (Kcl 10 Meq/100 Ml Piggyback) 100 mls @ 100 mls/hr IV Q1H [facility] Stop: 03/03/17 10:59 Last Admin: 03/03/17 10:08 Dose: Not Given Vancomycin HCl 1.75 gm/ (Dextrose/Water) 500 mls @ 250 mls/hr IV Q12H [facility] PRN Reason: Protocol Stop: 04/02/17 11:31 Last Infusion: 03/04/17 01:05 Dose: Infused Potassium Chloride 40 meq/ (Sodium Chloride) 1,020 mls @ 125 mls/hr IV .Q8H10M [facility] Stop: 04/02/17 08:16 Last Infusion: 03/04/17 07:26 Dose: Infused Chlorpromazine HCl 10 mg/ (Sodium Chloride) 50.4 mls @ 300 mls/hr IV Q4H [facility] Stop: 04/02/17 08:31 Last Infusion: 03/03/17 18:52 Dose: Infused Sodium Chloride (Sodium Chloride 0.9%) 1,000 mls @ 125 mls/hr IV .Q8H ONE Stop: 03/03/17 18:33 Last Admin: 03/03/17 11:31 Dose: Not Given Hydrocortisone Sodium Succinate 50 mg/ Dextrose/Water 51 mls @ 200 mls/hr IV Q6H [facility] Stop: 04/02/17 11:01 Last Admin: 03/03/17 20:01 Dose: 200 mls/hr Thiamine HCl 200 mg/ Sodium (Chloride) 52 mls @ 100 mls/hr IV DAILY [facility] Stop: 04/02/17 11:01 Last Infusion: 03/04/17 09:19 Dose: Infused Ascorbic Acid 1,500 mg/ Sodium (Chloride) 253 mls @ 250 mls/hr IV Q6H [facility] Stop: 04/02/17 11:16 Last Infusion: 03/03/17 19:44 Dose: Infused Sodium Chloride (Sodium Chloride 0.9%) 1,000 mls @ 999 mls/hr IV .Q1H1M ONE Stop: 03/03/17 16:44 Last Admin: 03/03/17 17:03 Dose: Not Given Sodium Chloride (Sodium Chloride 0.9%) 1,000 mls @ 999 mls/hr IV .Q1H1M ONE Stop: 03/03/17 18:36 Last Infusion: 03/03/17 18:37 Dose: Infused Ascorbic Acid 1,500 mg/ Sodium (Chloride) 253 mls @ 250 mls/hr IV Q6H [facility] Stop: 04/03/17 01:01 Last Infusion: 03/04/17 07:38 Dose: Infused Hydrocortisone Sodium Succinate 50 mg/ Dextrose/Water 51 mls @ 200 mls/hr IV Q6H [facility] Stop: 04/03/17 02:01 Last Infusion: 03/04/17 02:38 Dose: Infused Vancomycin HCl 1.75 gm/ (Dextrose/Water) 500 mls @ 250 mls/hr IV ONCE ONE PRN Reason: Protocol Stop: 03/04/17 16:29 Last Infusion: 03/04/17 16:13 Dose: Infused Vancomycin HCl 1.75 gm/ Sodium (Chloride) 500 mls @ 250 mls/hr IV Q12H [facility] PRN Reason: Protocol Stop: 03/05/17 04:29 Last Infusion: 03/05/17 05:09 Dose: Infused Vancomycin HCl 1.75 gm/ (Dextrose/Water) 500 mls @ 250 mls/hr IV Q12H [facility] PRN Reason: Protocol Stop: 04/04/17 14:31 Last Admin: 03/06/17 14:36 Dose: 250 mls/hr Levofloxacin/Dextrose (Levaquin) 750 mg in 150 mls @ 100 mls/hr IV Q24H [facility] PRN Reason: Protocol Stop: 04/04/17 23:01 Last Admin: 03/05/17 23:40 Dose: 100 mls/hr Insulin Glargine (Lantus) 53 units SC BID [facility] Stop: 04/02/17 09:01 Last Admin: 03/03/17 20:03 Dose: 53 units Insulin Glargine (Lantus) 60 units SC Q12H [facility] Stop: 04/03/17 07:31 Last Admin: 03/06/17 06:57 Dose: 60 units Insulin Glargine (Lantus) 80 units SC Q12H [facility] Stop: 04/03/17 07:31 Last Admin: 03/06/17 09:17 Dose: 20 units Insulin Glargine (Lantus) 95 units SC Q12H [facility] Stop: 04/05/17 17:21 Last Admin: 03/08/17 05:44 Dose: Not Given Insulin Glargine (Lantus) 100 units SC QAM [facility] Stop: 04/07/17 09:01 Last Admin: 03/08/17 08:33 Dose: 100 units Insulin Human Lispro (Humalog) 0 units SC ACHSINS [facility] PRN Reason: Protocol Stop: 04/02/17 07:01 Last Admin: 03/09/17 06:55 Dose: Not Given Ketorolac Tromethamine (Toradol) 15 mg IV Q6H PRN PRN Reason: Headache Stop: 03/08/17 08:10 Last Admin: 03/05/17 23:39 Dose: 15 mg Lisinopril (Zestril) 20 mg PO DAILY [facility] Stop: 04/02/17 09:01 Last Admin: 03/03/17 08:52 Dose: 20 mg Morphine Sulfate (Ms Contin) 15 mg PO Q12H [facility] Stop: 04/05/17 08:31 Last Admin: 03/08/17 08:30 Dose: 15 mg Ondansetron HCl (Zofran) 4 mg IV ONCE ONE Stop: 03/02/17 22:01 Last Admin: 03/02/17 22:15 Dose: 4 mg Ondansetron HCl (Zofran) 4 mg IV Q4H PRN PRN Reason: Nausea And Vomiting Stop: 04/02/17 01:46 Last Admin: 03/03/17 02:05 Dose: 4 mg Potassium Chloride (K-Dur) 40 meq PO ONCE ONE Stop: 03/03/17 00:18 Last Admin: 03/03/17 01:16 Dose: 40 meq Vancomycin HCl (Vancomycin Level) 1 XX ONCE ONE Stop: 03/05/17 14:01 Last Admin: 03/05/17 14:57 Dose: 1 - Disposition Discharge Date: 03/09/17 Discharge Time: 12:15
[2017-03-09] MEDS ORDERED: INSULIN LISPRO 100 UNITS/ML VIAL SC SCH (12:00)
== END 2017-03-09 12:15 | disposition short-term general hospital (02) | DRG 872 ==
LOC: ER 20:16 → MS 23:12
PROVIDERS: ADMIT Nurse Practitioner; ATTEND Allergy & Immunology
DX: A41.01 Sepsis due to Methicillin susceptible Staphylococcus aureus (principal); L03.115 Cellulitis of right lower limb; J44.1 Chronic obstructive pulmonary disease with (acute) exacerbation; M86.171 Other acute osteomyelitis, right ankle and foot; L97.412 Non-pressure chronic ulcer of right heel and midfoot with fat layer exposed; R65.20 Severe sepsis without septic shock; E11.621 Type 2 diabetes mellitus with foot ulcer; H93.19 Tinnitus, unspecified ear; I10 Essential (primary) hypertension; I25.10 Atherosclerotic heart disease of native coronary artery without angina pectoris; I25.2 Old myocardial infarction; Z79.4 Long term (current) use of insulin; Z95.5 Presence of coronary angioplasty implant and graft; Z86.73 Personal history of transient ischemic attack (TIA), and cerebral infarction without residual deficits; Z79.82 Long term (current) use of aspirin

== ENCOUNTER 2017-04-24 18:38 | Observation (INO) | payer MEDICARE, OTHER ==
--- NOTE | 2017-04-24 19:40 | ERNOTE ---
<Miguel Rodriguez - Last Filed: 04/24/17 19:33> Dizziness ER Record Date of Service: 04/24/17 Presenting Symptoms: dizziness, weakness, near-fainting Time Seen by Provider: 04/24/17 19:07 Source: patient Exam Limitations: no limitations, clinical condition - patient present with sudden onset of weakness and dizzyness at 3 pm today, similar episode in past associated with chf and stent placement Immunizations: IMMUNIZATION HX Immunizations Up to Date No History of Influenza Vaccine Yes Hx Pneumococcal Vaccination Yes Allergies/Adverse Reactions: Allergies Allergy/AdvReac Type Severity Reaction Status Date / Time omeprazole Allergy Verified 01/07/16 03:00 Home Medications: HOME MEDICATIONS Aspirin 325 mg PO DAILY 09/16/15 [Last Taken Unknown] Clopidogrel Bisulfate [Plavix] 75 mg PO DAILY 09/16/15 [Last Taken Unknown] HYDROcodone/ACETAMINOPHEN [Gordon 5-325] 1 - 2 tab PO Q6H PRN 03/25/16 [Last Taken Unknown] Insulin Glargine,Hum.rec.anlog [Lantus] 80 units SC HS 03/25/16 [Last Taken 07:00] Atorvastatin Calcium [Lipitor] 10 mg PO HS 04/24/17 [Last Taken Unknown] Carvedilol [Coreg] 12.5 mg PO BID 04/24/17 [Last Taken Unknown] Dulaglutide [Trulicity] 1.5 mg SQ Q7D 04/24/17 [Last Taken Unknown] Furosemide [Lasix] 80 mg PO DAILY 04/24/17 [Last Taken Unknown] Isosorbide Mononitrate [Imdur] 30 mg PO DAILY 04/24/17 [Last Taken Unknown] Nitroglycerin [Nitrostat] 0.4 mg SL Q5MIN PRN 04/24/17 [Last Taken Unknown] Potassium Chloride [Klor-Con 10] 20 meq PO DAILY 04/24/17 [Last Taken Unknown] Promethazine HCl [Phenergan] 25 mg PO QID PRN 04/24/17 [Last Taken Unknown] Sertraline HCl [Zoloft] 50 mg PO DAILY 04/24/17 [Last Taken Unknown] traMADol HCL [Ultram] 50 mg PO Q4H PRN 04/24/17 [Last Taken Unknown] - History of Present Illness Timing and Duration: sudden onset, better Noted on awakening:: No Severity: max: moderate Severity: currently: mild Associated Symptoms: Present: light headedness Sense of movement: Present: spinning Decreased ability to stand/walk:: Present: weak, off balance Usually:: Present: walks w/o assistance Modifying Factors - (Improves): Reports: nothing Modifying Factors - (Worsens): Reports: nothing Prior Treament: Reports: recently seen Review of Systems - Review of Systems Constitutional: Present: weakness, malaise EYE: Present: no symptoms reported ENT: Present: no symptoms reported Respiratory: Present: no symptoms reported Cardiology: Present: no symptoms reported Gastrointestinal/Abdominal: Present: no symptoms reported Genitourinary: Present: no symptoms reported Musculoskeletal: Present: no symptoms reported Skin: Present: no symptoms reported Neurological: Present: no symptoms reported Endocrine: Present: no symptoms reported Hematologic/Lymphatic: Present: no symptoms reported Psych: Present: no symptoms reported - Patient's Past Medical History Patient History - Medical: Diabetes Type 2 Insulin Dependent, GERD, Osteoporosis Patient History - Cardiac/Respiratory: Coronary Heart Disease, CHF, Hypertension , Myocardial Infarction, Peripheral Vascular Disease Patient History - Cancer: No Hx of Cancer Patient History - Surgical Procedures: Cholecystectomy, Cardiac stent, Other, Orthopedic Patient History - Other: None - Family History Family History:: no untoward family reactions to anesthesia, no family history of clotting disorders - Family History Mother Family History - Medical: Diabetes Type 2 Insulin Dependent Family History - Cardiac/Respiratory: No pertinent hx Family History - Cancer: No pertinent family hx Father Family History - Medical: Family History - Cardiac/Respiratory: History Unknown Family History - Cancer: History Unknown - Social History Living Situations: home Abuse History: No History of abuse Psych History: No pertinent hx Does anyone smoke in the home?: No Smoking Status: Former smoker Have you smoked in the past 12 months: No Do you dip or chew tobacco: Yes Patient requests Smoking Cessation Consult: No Initiate information on Smoking Cessation: No Alcohol Use: none Drug Use: none - Immunizations Immunizations Up to Date: No Hx Pneumococcal Vaccination: Yes History of Influenza Vaccine: Yes Physical Exam - Physical Exam General Appearance: Present: no apparent distress, mild distress Head Exam: Present: normal inspection, no evidence of injury Eye Exam: Normal inspection: bilateral, PERRL: bilateral, EOMI: bilateral Ears, Nose, Throat: Present: normal ENT inspection Neck: Present: normal inspection, nontender Respiratory: Present: no respiratory distress, normal breath sounds, no accessory muscle use, chest nontender Cardiovascular/Chest: Present: regular rate, rhythm, no murmur, normal peripheral pulses Peripheral Pulses: N=norm/S=strong/W=weak/B=bound/A=absent: Carotid (R): Normal , Carotid (L): Normal, Radial (R): Normal, Radial (L): Normal, Femoral (R): Normal, Femoral (L): Normal Gastrointestinal/Abdominal: Present: normal bowel sounds, nontender, nondistended, soft, no organomegaly Back Exam: Present: normal inspection, normal range of motion, no CVA tenderness , no vertebral tenderness Extremity Exam: Present: normal inspection, non-tender, normal range of motion, no edema Neurological Exam: Present: alert, oriented, normal mood/affect, no motor/ sensory deficits DTR: N=norm/NB=norm/brisk/A=abs/DD=dull/dimin/HC=hyperactive: Bicep (R): Normal , Bicep (L): Normal, Tricep (R): Normal, Tricep (L): Normal, Knee (R): Normal, Knee (L): Normal, Ankle (R): Normal Skin Exam: Present: normal color, warm/dry Lymphatic Exam: Present: no adenopathy ED Progress - Vital Signs Patient's Vital Signs:: I have reviewed the patient's vital signs. Vital Signs: Vital Signs 04/24/17 04/24/17 18:45 19:10 Temperature 3636 C H Pulse Rate 112 H 110 H Respiratory 18 Rate Blood Pressure 135/89 O2 Sat by Pulse 96 Oximetry - Progress/Reassessment Chief Complaint: Dizziness - Transfer of Care Brief History: care transferred to dr mukherjee Departure Clinical Impression: Vertigo CHF (congestive heart failure) Qualifiers: Congestive heart failure type: systolic Congestive heart failure chronicity: acute Qualified Code(s): I50.21 - Acute systolic (congestive) heart failure - Departure Disposition: [facility] Condition: Good <Cornelio Mukherjee - Last Filed: 04/24/17 20:50> Dizziness ER Record Immunizations: IMMUNIZATION HX Immunizations Up to Date No History of Influenza Vaccine Yes Hx Pneumococcal Vaccination Yes ED Progress - Results and Orders Patient's Lab Results:: I have reviewed the patient's lab results. Results and Orders: Laboratory Tests 04/24/17 04/24/17 04/24/17 19:41 19:41 19:41 WBC 9.6 Hgb 11.6 L Hct 33.1 L Plt Count 221 PT 10.3 INR (Anticoag Therapy) 0.99 PTT (Marie) 22.8 L Sodium 135 Potassium 3.6 Chloride 98 Carbon Dioxide 29.7 Anion Gap 10.9 BUN 31 H D Creatinine 1.67 H D Est GFR (Non-Af Amer) 46 L D Random Glucose 310 H Calcium 8.8 Total Bilirubin 0.9 AST 14 ALT 17 L Alkaline Phosphatase 176 H Troponin I 0.031 B-Natriuretic Peptide 2942 H Total Protein 7.8 Albumin 3.2 L - Vital Signs Patient's Vital Signs:: I have reviewed the patient's vital signs. Vital Signs: Vital Signs 04/24/17 04/24/17 04/24/17 18:45 19:10 20:00 Temperature 36.6 C Pulse Rate 112 H 110 H 101 H Respiratory 18 21 H Rate Blood Pressure 135/89 127/84 O2 Sat by Pulse 96 96 Oximetry 04/24/17 20:32 Temperature Pulse Rate 101 H Respiratory 20 Rate Blood Pressure 132/80 O2 Sat by Pulse 95 Oximetry - EKG EKG: nonspecific ST T wave changes EKG read: Interp. by me - Progress/Reassessment Progress Note-Subjective: 04/24/17 20:45 discussed obs admission with pt due to elevated BNP in light of recent CHF admission and stent placement a few weeks ago. Pt agrees Spoke with Mago STARKS hospitalist and she agrees to accept the pateint for OBS admission.
[2017-04-24 19:45] LABS: Hematocrit 33.1 % (42.0-52.0); Hemoglobin 11.6 gm/dL (13.5-18.0); Mean Cell Volume 78.8 fl (78-100); Mean Corpuscular Hemoglobin 27.6 pg (27-31); Mean Platelet Volume 8.7 fl (6.0-9.5); Neutrophil # 6.2 K/mm3 (1.3-6.0); Neutrophil % 64.3 % (42-75.0); Platelet Count 221 K/mm3 (150-450); Red Cell Distribution Width 14.6 % (11.5-14.0); White Blood Count 9.6 K/mm3 (4.0-10.5)
[2017-04-24 20:01] LABS: Prothrombin Time (Patient) 10.3 Seconds (9.4-11.4)
[2017-04-24 20:02] LABS: INR 0.99 INR (0.90-1.10); Partial Thrombolplastin Time 22.8 Seconds (24-32)
[2017-04-24 20:10] LABS: Troponin I 0.031 ng/ml (0.00-0.10)
[2017-04-24 20:13] LABS: Albumin * 3.2 gm/dl (3.4-5.0); Anion Gap 10.9 mmol/L (6.8-13.8); BUN/Creatinine Ratio 18.6 (9.0-21.6); Ca. Corrected For Albumin 9.1 mg/dL (8.4-10.2); Calcium * 8.8 mg/dL (7.9-10.9); Carbon Dioxide 29.7 mmol/L (24-32.6); Potassium 3.6 mmol/L (3.4-4.6); Total Protein 7.8 gm/dL (6.2-8.2)
[2017-04-24 20:14] LABS: Bilirubin, Total 0.9 mg/dL (0.0-1.1)
[2017-04-24] MEDS ORDERED: INSULIN GLARGINE,HUM.REC.ANLOG 100 UNITS/ML VIAL SC SCH (21:00)
[2017-04-24] MEDS ORDERED: ATORVASTATIN CALCIUM 10 MG TABLET PO SCH (21:00)
[2017-04-24] MEDS ORDERED: ONDANSETRON HCL/PF 2 MG/ML VIAL IV PRN (21:27)
[2017-04-24] MEDS ORDERED: MECLIZINE HCL 25 MG TABLET PO PRN (21:42)
[2017-04-24] MEDS ORDERED: MECLIZINE HCL 25 MG TABLET PO ONE (21:42)
[2017-04-24] MEDS ORDERED: NITROGLYCERIN 0.4 MG/TAB BTL SL PRN (21:45)
[2017-04-24] MEDS ORDERED: POTASSIUM CHLORIDE 20 MEQ TABLET.SA PO ONE (21:47)
[2017-04-24] MEDS ORDERED: FUROSEMIDE 10 MG/ML VIAL IV ONE (21:47)
[2017-04-24] MEDS ORDERED: PROMETHAZINE HCL 25 MG TABLET PO PRN (21:58)
[2017-04-24] MEDS ORDERED: traMADol HCL 50 MG TABLET PO PRN (21:58)
[2017-04-24] MEDS ORDERED: HYDROcodone/ACETAMINOPHEN 1 EACH TABLET PO PRN ×2 (21:58→22:03)
--- NOTE | 2017-04-24 22:30 | HP ---
Addendum entered and electronically signed by Mago Rosado ARNP 04/25/17 02: 22: records obtained from [facility] show pt had NSTEMI and thus underwent coronary angiogram with stent placed to mid LAD. echo done 04/01/17 showed ef 35-40% with aortic valve sclerosis and mild pulm HTN but were unable to assess diastolic function in this echo. This would change his CHF diagnosis to acute systolic chf exac. renal was also consulted while he was admitted to [facility] and indicated that his NATALEE is likely due to cardiorenal syndrome with contrast induced nephropathy with a plateau of his creatinine around 1.4-1.6. At the end of his admission, nephrology indicated that NATALEE likely due to cardiorenal syndrome vs drug induced nephritis vs post infectious GN.. but now clear indication was given per records. At this point, continue to monitor overnight and reassess in the am. TEREZA Acevedo. Original Note: <Mago Rosado - Last Filed: 04/25/17 00:27> Chief Complaint - Chief Complaint Date of Service: 04/24/17 Time of Service: 21:30 Chief Complaint: dizziness, nausea, shortness of breath History of Present Illness: Tommy is a 51 year old male patient of the [facility] in [place] with a PMH of poorly controlled DM (s/p Left BKA, s/p right toe amputation 10/2016), CAD (hx 5 stents - last stent at [facility] 03/2017), CHF, hx TIA, hx vertigo with tinnitus, and chronic headaches who presented to the ER with c/o dizziness and dyspnea since 3 pm this afternoon. ER eval revealed CBC with no elevated WBC or left shift. CMP with elevated creatinine at 1.67 (baseline 0.8-1.2), elevated serum glucose at 310. BNP elevated at 2942. troponin wnl. Chest xray showed some vascular congestion c/w early CHF. Patient denies fever or chills. c/o nausea. states weight has been declining but indicates food intake has been poor the last couple of weeks - fluid intake good. c/o chronic cough for the last 2 years that has worsened over the last 2 weeks. states dizziness feels like the room is spinning. nausea associated with dizziness. denies cp or chest pressure. recently admitted late March 2017 to [facility] for shortness of breath. Per pt, given po lasix and underwent an angiogram where a stent was placed to LAD. patient indicates that right lower extremity edema is actually improved since before his most recent [facility] admission. last echo done at [facility] while being admitted for diabetic foot ulcer and cellulitis, showed normal ef with mild MR. Patient to be admitted for weakness, vertigo, CHF exacerbation. - Patient's Past Medical History Patient History - Medical: Diabetes Type 2 Insulin Dependent, GERD, Osteoporosis Patient History - Cardiac/Respiratory: Coronary Heart Disease, CHF, Hypertension , Myocardial Infarction, Peripheral Vascular Disease, Valvular Heart Disease Patient History - Cancer: No Hx of Cancer Patient History - Surgical Procedures: Amputation, Cholecystectomy, Cardiac stent, Other, Orthopedic Patient History - Other: None - Family History Family History:: no untoward family reactions to anesthesia, no family history of clotting disorders - Family History Mother Family History - Medical: Diabetes Type 2 Insulin Dependent Family History - Cardiac/Respiratory: No pertinent hx Family History - Cancer: No pertinent family hx Father Family History - Medical: Family History - Cardiac/Respiratory: History Unknown Family History - Cancer: History Unknown - Social History Living Situations: significant other Abuse History: No History of abuse Psych History: No pertinent hx Does anyone smoke in the home?: No Smoking Status: Former smoker Have you smoked in the past 12 months: No Do you dip or chew tobacco: Yes Patient requests Smoking Cessation Consult: No Initiate information on Smoking Cessation: No Alcohol Use: none Drug Use: none - Immunizations Immunizations Up to Date: No Hx Pneumococcal Vaccination: Yes History of Influenza Vaccine: Yes Review Of Systems (GEN) - Review of Systems Generalized/Overall Review: Present: Weakness. Absent: Chills, Fever EENTM: Present: No Symptoms Reported Respiratory: Present: Cough, Shortness of Breath. Absent: Wheezing Cardiac: Present: No Symptoms Reported Abdominal: Present: Nausea. Absent: Vomiting, Hematemesis, Abdominal Pain, Constipation Genitourinary: Present: No Symptoms Reported Musculoskeletal: Present: No Symptoms Reported Neurological: Present: Other - dizziness Skin: Present: No Symptoms Reported Endocrine: Present: No Symptoms Reported Misc: All systems neg except as marked Allergies/Adverse Reactions: Allergies Allergy/AdvReac Type Severity Reaction Status Date / Time omeprazole Allergy Verified 01/07/16 03:00 Home Medications: HOME MEDICATIONS Aspirin 325 mg PO DAILY 09/16/15 [Last Taken Unknown] Clopidogrel Bisulfate [Plavix] 75 mg PO DAILY 09/16/15 [Last Taken Unknown] HYDROcodone/ACETAMINOPHEN [[place] 5-325] 1 - 2 tab PO Q6H PRN 03/25/16 [Last Taken Unknown] Insulin Glargine,Hum.rec.anlog [Lantus] 80 units SC HS 03/25/16 [Last Taken 07:00] Atorvastatin Calcium [Lipitor] 10 mg PO HS 04/24/17 [Last Taken Unknown] Carvedilol [Coreg] 12.5 mg PO BID 04/24/17 [Last Taken Unknown] Dulaglutide [Trulicity] 1.5 mg SQ Q7D 04/24/17 [Last Taken Unknown] Furosemide [Lasix] 80 mg PO DAILY 04/24/17 [Last Taken Unknown] Isosorbide Mononitrate [Imdur] 30 mg PO DAILY 04/24/17 [Last Taken Unknown] Nitroglycerin [Nitrostat] 0.4 mg SL Q5MIN PRN 04/24/17 [Last Taken Unknown] Potassium Chloride [Klor-Con 10] 20 meq PO DAILY 04/24/17 [Last Taken Unknown] Promethazine HCl [Phenergan (Promethazine)] 25 mg PO QID PRN 04/24/17 [Last Taken Unknown] Sertraline HCl [Zoloft] 50 mg PO DAILY 04/24/17 [Last Taken Unknown] traMADol HCL [Ultram] 50 mg PO Q4H PRN 04/24/17 [Last Taken Unknown] Ondansetron [Zofran Odt] 8 mg PO Q6H PRN #100 tab.rapdis 04/25/17 [Last Taken Unknown] Potassium Chloride [K-Dur] 20 meq PO DAILY tablet.sa 04/25/17 [Last Taken Unknown] Exam - Exam Vital Signs: Vital Signs - Last Taken Temp 36.8 C 04/24/17 21:10 Pulse 106 H 04/24/17 21:10 Resp 18 04/24/17 21:10 BP 134/87 04/24/17 21:10 Pulse Ox 98 04/24/17 21:10 Constitutional: Present: Alert, Oriented x3, No distress, Looks Older than stated age ENT Exam: Present: hearing grossly normal Eye Exam: bilateral eye: normal inspection Neck: Present: full range of motion, supple Breasts: Present: Exam deferred Respiratory: Present: crackles - right mid lung to base otherwise clear breath sounds heard through the rest of the lungs Cardiovascular/Chest: Present: regular rate, rhythm, tachycardia, systolic murmur - 2/6 Peripheral Pulses: dorsalis-pedis (R): 1+, dorsalis-pedis (L): 0 - s/p left BKA , radial (R): 2+, radial (L): 2+ Abdomen: Present: soft, nontender, nondistended /Rectal: Present: Exam deferred Extremity: Present: normal inspection - right leg and above the knee on left leg , calf tenderness - right Skin Exam: Present: normal color, warm/dry, no cyanosis Diagnostic Studies: Laboratory Results WBC 9.6 K/mm3 (4.0-10.5) 04/24/17 19:41 RBC 4.20 M/mm3 (4.7-6.0) L 04/24/17 19:41 Hgb 11.6 gm/dL (13.5-18.0) L 04/24/17 19:41 Hct 33.1 % (42.0-52.0) L 04/24/17 19:41 MCV 78.8 fl (78-100) 04/24/17 19:41 MCH 27.6 pg (27-31) 04/24/17 19:41 MCHC 35.0 g/dl (32-36) 04/24/17 19:41 RDW 14.6 % (11.5-14.0) H 04/24/17 19:41 Plt Count 221 K/mm3 (150-450) 04/24/17 19:41 MPV 8.7 fl (6.0-9.5) 04/24/17 19:41 Immature Gran % (Auto) 0.50 % (0.001-0.429) H 04/24/17 19:41 Immature Gran # (Auto) 0.05 K/mm3 (0.000-0.0310) H 04/24/17 19:41 Neutrophils % 64.3 % (42-75.0) 04/24/17 19:41 Lymphocytes % 25.4 % (20-51) 04/24/17 19:41 Monocytes % 7.7 % (0.0-9) 04/24/17 19:41 Eosinophils % 1.7 % (0.0-3.0) 04/24/17 19:41 Basophils % 0.4 % (0.0-1.0) 04/24/17 19:41 Nucleated RBC % 0.0 k/mm3 (0-1) 04/24/17 19:41 Neutrophils # 6.2 K/mm3 (1.3-6.0) H 04/24/17 19:41 Lymphocytes # 2.4 k/mm3 (1.5-3.5) 04/24/17 19:41 Monocytes # 0.7 k/mm3 (0.0-1.0) 04/24/17 19:41 Eosinophils # 0.2 k/mm3 (0.0-0.7) 04/24/17 19:41 Absolute Basophils 0.0 k/mm3 (0.0-0.1) 04/24/17 19:41 PT 10.3 Seconds (9.4-11.4) 04/24/17 19:41 INR (Anticoag Therapy) 0.99 INR (0.90-1.10) 04/24/17 19:41 PTT (Scott) 22.8 Seconds (24-32) L 04/24/17 19:41 Sodium 135 mmol/L (132-142) 04/24/17 19:41 Plasma Sodium 138 mmol/L (130-142) 04/24/17 19:41 Potassium 3.6 mmol/L (3.4-4.6) 04/24/17 19:41 Chloride 98 mmol/L (97-106) 04/24/17 19:41 Carbon Dioxide 29.7 mmol/L (24-32.6) 04/24/17 19:41 Anion Gap 10.9 mmol/L (6.8-13.8) 04/24/17 19:41 BUN 31 mg/dL (6-23) H D 04/24/17 19:41 Creatinine 1.67 mg/dL (0.4-1.4) H D 04/24/17 19:41 Est GFR (Non-Af Amer) 46 mL/min (60-130) L D 04/24/17 19:41 BUN/Creatinine Ratio 18.6 (9.0-21.6) 04/24/17 19:41 Random Glucose 310 mg/dL (70-110) H 04/24/17 19:41 Calcium 8.8 mg/dL (7.9-10.9) 04/24/17 19:41 Calcium Adj for Albumin 9.1 mg/dL (8.4-10.2) 04/24/17 19:41 Total Bilirubin 0.9 mg/dL (0.0-1.1) 04/24/17 19:41 AST 14 U/L (0-48) 04/24/17 19:41 ALT 17 U/L (19-67) L 04/24/17 19:41 Alkaline Phosphatase 176 U/L (50-170) H 04/24/17 19:41 Troponin I 0.031 ng/ml (0.00-0.10) 04/24/17 19:41 B-Natriuretic Peptide 2942 pg/mL (5-140) H 04/24/17 19:41 Total Protein 7.8 gm/dL (6.2-8.2) 04/24/17 19:41 Albumin 3.2 gm/dl (3.4-5.0) L 04/24/17 19:41 Assessment/Plan - Narrative Narrative: Weakness - likely multi-factorial - CHF exac and/or vertigo exacerbation and/or deconditioning and/or uncontrolled diabetes and/or CAD and/or chronic hypoxia - pt states pcp is working to see if he qualifies for home O2 - check additional labs: TSH, B12, UCS, CK, CKMB - trend troponins with ekg overnight - check orthostatic blood pressure - meclizine po for vertigo episodes - monitor on telemetry - cont pulse ox. - continue lantus while admitted - accu checks achs with sliding scale insulin prn - Nursing to do neurochecks with vital signs - consult PT for weakness and vertigo CHF exac - last echo from [facility] (03/09/17) shows normal EF with mild MR, ? diastolic dysfunction - awaiting records from [facility] for last admission late march 2017 - BNP elevated, right mid to lower lung with crackles - will try lasix 40 mg IV x1 - check labs in am. - daily weight - strict I&Os - monitor on tele - cont pulse ox. - CHF teaching while admitted - heart healthy diet Vertigo - the way patient describes current dizzy episode with nausea c/w vertigo - trial meclizine po to see if this help dizziness - consult PT - check orthostatics as a precaution and additional labs as stated above. CAD - monitor on telemetry - cont pulse ox - trend troponins with EKG - obtain records from [facility] regarding most recent stent late march 2017. - if patient spikes troponin --> will need transferred to [facility] NATALEE - left [facility] at beginning of march 2017 with creatinine 1.2 - currently 1.67 - hold magnus/arb meds - ? elevated due to CHF - recheck labs in am - strict I&Os - daily weights history TIA - neuro checks with vital signs as a precaution. Diabetes - continue lantus - ? increase lantus or add another medication for additional blood sugar management. - accu-checks achs with sliding scale insulin prn HTN - vital signs q 4 hour VTE: full code VTE: lovenox GI Proph: none due to allergy. - Assessment/Plan (1) Weakness Problem: Acute (2) CAD (coronary artery disease) Problem: Chronic QualifierTitle: Coronary Disease-Associated Artery/Lesion type: [place] artery [place] vs. transplanted heart: [place] heart Associated angina: angina presence unspecified Qualified Code(s): I25.10 - Atherosclerotic heart disease of [place] coronary artery without angina pectoris (3) History of TIA (transient ischemic attack) Problem: Acute (4) NATALEE (acute kidney injury) Problem: Acute (5) CHF (congestive heart failure) Problem: Acute QualifierTitle: Congestive heart failure type: unspecified congestive heart failure type Congestive heart failure chronicity: acute Qualified Code (s): I50.9 - Heart failure, unspecified (6) Vertigo Problem: Acute (7) Diabetes Problem: Chronic QualifierTitle: Diabetes mellitus type: type 2 Diabetes mellitus complication status: with hyperglycemia 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 insulin use: with jail use Qualified Code(s): E11.65 - Type 2 diabetes mellitus with hyperglycemia; Z79.4 - intermediate (current) use of insulin (8) HTN (hypertension) Problem: Chronic QualifierTitle: Hypertension type: essential hypertension Qualified Code( s): I10 - Essential (primary) hypertension <Bill Talley - Last Filed: 04/25/17 16:58> Immunizations: IMMUNIZATION HX Immunizations Up to Date No History of Influenza Vaccine Yes Hx Pneumococcal Vaccination Yes Exam - Exam Vital Signs: Vital Signs - Last Taken Temp 36.8 C 04/25/17 10:00 Pulse 103 H 04/25/17 10:58 Resp 18 04/25/17 10:00 BP 109/63 04/25/17 10:00 Pulse Ox 97 04/25/17 10:00 Diagnostic Studies: Abnormal Lab Results 04/25/17 04/25/17 04/25/17 Range/Units 01:45 01:45 03:17 WBC 10.7 H (4.0-10.5) K/mm3 RBC 4.23 L (4.7-6.0) M/mm3 Hgb 11.5 L (13.5-18.0) gm/dL Hct 33.3 L (42.0-52.0) % RDW 14.6 H (11.5-14.0) % Immature Gran # (Auto) 0.04 H (0.000-0.0310) K/mm3 Lymphocytes # 3.7 H (1.5-3.5) k/mm3 BUN 33 H (6-23) mg/dL Creatinine 1.76 H (0.4-1.4) mg/dL Est GFR (Non-Af Amer) 44 L (60-130) mL/min Random Glucose 224 H (70-110) mg/dL Urine Protein 100 H (NEGATIVE) mg/dL Urine Glucose (UA) 500 H (NEGATIVE) mg/dL Urine Blood 250 H (NEGATIVE) /ul Prot Sulfosalicylic Acd 4+ H (0) mg/dL Microbiology 04/24/17 21:24 - Final Nares MRSA Negative Laboratory Results WBC 10.7 K/mm3 (4.0-10.5) H 04/25/17 01:45 RBC 4.23 M/mm3 (4.7-6.0) L 04/25/17 01:45 Hgb 11.5 gm/dL (13.5-18.0) L 04/25/17 01:45 Hct 33.3 % (42.0-52.0) L 04/25/17 01:45 MCV 78.7 fl (78-100) 04/25/17 01:45 MCH 27.2 pg (27-31) 04/25/17 01:45 MCHC 34.5 g/dl (32-36) 04/25/17 01:45 RDW 14.6 % (11.5-14.0) H 04/25/17 01:45 Plt Count 225 K/mm3 (150-450) 04/25/17 01:45 MPV 9.1 fl (6.0-9.5) 04/25/17 01:45 Immature Gran % (Auto) 0.40 % (0.001-0.429) 04/25/17 01:45 Immature Gran # (Auto) 0.04 K/mm3 (0.000-0.0310) H 04/25/17 01:45 Neutrophils % 53.8 % (42-75.0) 04/25/17 01:45 Lymphocytes % 35.0 % (20-51) 04/25/17 01:45 Monocytes % 8.1 % (0.0-9) 04/25/17 01:45 Eosinophils % 2.3 % (0.0-3.0) 04/25/17 01:45 Basophils % 0.4 % (0.0-1.0) 04/25/17 01:45 Nucleated RBC % 0.0 k/mm3 (0-1) 04/25/17 01:45 Neutrophils # 5.7 K/mm3 (1.3-6.0) 04/25/17 01:45 Lymphocytes # 3.7 k/mm3 (1.5-3.5) H 04/25/17 01:45 Monocytes # 0.9 k/mm3 (0.0-1.0) 04/25/17 01:45 Eosinophils # 0.3 k/mm3 (0.0-0.7) 04/25/17 01:45 Absolute Basophils 0.0 k/mm3 (0.0-0.1) 04/25/17 01:45 PT 10.3 Seconds (9.4-11.4) 04/24/17 19:41 INR (Anticoag Therapy) 0.99 INR (0.90-1.10) 04/24/17 19:41 PTT (Scott) 22.8 Seconds (24-32) L 04/24/17 19:41 Sodium 138 mmol/L (132-142) 04/25/17 01:45 Plasma Sodium 140 mmol/L (130-142) 04/25/17 01:45 Potassium 3.7 mmol/L (3.4-4.6) 04/25/17 01:45 Chloride 100 mmol/L (97-106) 04/25/17 01:45 Carbon Dioxide 29.7 mmol/L (24-32.6) 04/25/17 01:45 Anion Gap 12.0 mmol/L (6.8-13.8) 04/25/17 01:45 BUN 33 mg/dL (6-23) H 04/25/17 01:45 Creatinine 1.76 mg/dL (0.4-1.4) H 04/25/17 01:45 Est GFR (Non-Af Amer) 44 mL/min (60-130) L 04/25/17 01:45 BUN/Creatinine Ratio 18.8 (9.0-21.6) 04/25/17 01:45 Random Glucose 224 mg/dL (70-110) H 04/25/17 01:45 Calcium 8.6 mg/dL (7.9-10.9) 04/25/17 01:45 Calcium Adj for Albumin 9.1 mg/dL (8.4-10.2) 04/24/17 19:41 Total Bilirubin 0.9 mg/dL (0.0-1.1) 04/24/17 19:41 AST 14 U/L (0-48) 04/24/17 19:41 ALT 17 U/L (19-67) L 04/24/17 19:41 Alkaline Phosphatase 176 U/L (50-170) H 04/24/17 19:41 Creatine Kinase 49 U/L (0-259) 04/24/17 21:51 CK-MB (CK-2) 0.9 ng/mL (0.0-9.0) 04/24/17 21:51 Troponin I 0.031 ng/ml (0.00-0.10) 04/25/17 01:45 B-Natriuretic Peptide 2942 pg/mL (5-140) H 04/24/17 19:41 Total Protein 7.8 gm/dL (6.2-8.2) 04/24/17 19:41 Albumin 3.2 gm/dl (3.4-5.0) L 04/24/17 19:41 Vitamin B12 443 pg/mL (193-986) 04/24/17 21:51 TSH 2.599 uIU/mL (0.358-3.74) 04/24/17 21:51 Urine Color Pale yellow 04/25/17 03:17 Urine Appearance Clear 04/25/17 03:17 Urine pH 5.5 pH (5.0-7.0) 04/25/17 03:17 Ur Specific [place] 1.020 SP.GR. (1.005-1.030) 04/25/17 03:17 Urine Protein 100 mg/dL (NEGATIVE) H 04/25/17 03:17 Urine Glucose (UA) 500 mg/dL (NEGATIVE) H 04/25/17 03:17 Urine Ketones Negative mg/dL (NEGATIVE) 04/25/17 03:17 Urine Blood 250 /ul (NEGATIVE) H 04/25/17 03:17 Urine Nitrate Negative (NEGATIVE) 04/25/17 03:17 Urine Bilirubin Negative mg/dl (NEGATIVE) 04/25/17 03:17 Prot Sulfosalicylic Acd 4+ mg/dL (0) H 04/25/17 03:17 Urine Urobilinogen Normal EU/dl (NORMAL) 04/25/17 03:17 Ur Leukocyte Esterase Negative /ul (NEGATIVE) 04/25/17 03:17 Urine RBC 0-5 /hpf (0-5) 04/25/17 03:17 Urine WBC 0-5 /hpf (0-5) 04/25/17 03:17 Ur Epithelial Cells 0-5 /hpf (0-5) 04/25/17 03:17 Urine Bacteria None seen (NONE) 04/25/17 03:17 Urine Culture Comments No culture indicated 04/25/17 03:17 Assessment/Plan - Narrative Narrative: Most likely problem here is vertigo with nausea which started suddenly at 3 PM the day of admission. He has had this off and on for several years. He has had a brain MRI, unremarkable, in the past, as part of an evaluation for these symptoms. I directly supervised our nurse practitioner hospitalist in her care of this patient. - Assessment/Plan (1) Systolic CHF, chronic Problem: Chronic (2) Stage 3 chronic kidney disease Problem: Chronic (3) Elevated brain natriuretic peptide (BNP) level Problem: Acute (4) History of TIA (transient ischemic attack) Problem: Chronic (5) Vertigo Problem: Acute (6) Weakness Problem: Acute (7) CAD (coronary artery disease) Problem: Chronic Qualifiers: Coronary Disease-Associated Artery/Lesion type: [place] artery [place] vs. transplanted heart: [place] heart Associated angina: angina presence unspecified Qualified Code(s): I25.10 - Atherosclerotic heart disease of [place] coronary artery without angina pectoris (8) COPD (chronic obstructive pulmonary disease) Problem: Chronic Qualifiers: COPD type: emphysema Emphysema type: panlobular Qualified Code(s): J43.1 - Panlobular emphysema (9) Migraine Problem: Chronic Qualifiers: Migraine type: without aura Status migrainosus presence: without status migrainosus Intractability: not intractable Qualified Code(s): G43.009 - Migraine without aura, not intractable, without status migrainosus (10) Tinnitus aurium Problem: Chronic Qualifiers: Laterality: bilateral Qualified Code(s): H93.13 - Tinnitus, bilateral (11) CVA (cerebral vascular accident) Problem: Chronic Qualifiers: CVA mechanism: unspecified Qualified Code(s): I63.9 - Cerebral infarction, unspecified (12) Diabetic foot ulcer Problem: Inactive Qualifiers: Diabetic foot ulcer location: other Diabetes mellitus type: type 2 Laterality: right Non-pressure ulcer stage: with fat layer exposed Qualified Code(s): E11.621 - Type 2 diabetes mellitus with foot ulcer; L97.512 - Non-pressure chronic ulcer of other part of right foot with fat layer exposed (13) HTN (hypertension) Problem: Chronic Qualifiers: Hypertension type: essential hypertension Qualified Code(s): I10 - Essential (primary) hypertension (14) Recent non-ST elevation myocardial infarction Problem: Resolved
[2017-04-24 22:35] LABS: CKMB 0.9 ng/mL (0.0-9.0); TSH * 2.599 uIU/mL (0.358-3.74)
[2017-04-24] MEDS ORDERED: ALBUTEROL SULFATE/IPRATROPIUM 3 ML NEBU IH PRN (22:40)
[2017-04-24] MEDS: CARVEDILOL 12.5 MG TABLET PO SCH (22:48)
[2017-04-24] MEDS: INSULIN LISPRO 100 UNITS/ML VIAL SC SCH ×3 (22:53→23:18)
[2017-04-24] MEDS ORDERED: ENOXAPARIN SODIUM 40 MG/0.4 ML SYRG SC SCH (23:00)
[2017-04-25 01:55] LABS: Hematocrit 33.3 % (42.0-52.0); Hemoglobin 11.5 gm/dL (13.5-18.0); Mean Cell Volume 78.7 fl (78-100); Mean Corpuscular Hemoglobin 27.2 pg (27-31); Mean Corpuscular Hgb Conc 34.5 g/dl (32-36); Mean Platelet Volume 9.1 fl (6.0-9.5); Neutrophil # 5.7 K/mm3 (1.3-6.0); Neutrophil % 53.8 % (42-75.0); Platelet Count 225 K/mm3 (150-450); Red Blood Count 4.23 M/mm3 (4.7-6.0); Red Cell Distribution Width 14.6 % (11.5-14.0); White Blood Count 10.7 K/mm3 (4.0-10.5)
[2017-04-25 02:03] LABS: BUN/Creatinine Ratio 18.8 (9.0-21.6); Calcium * 8.6 mg/dL (7.9-10.9); Carbon Dioxide 29.7 mmol/L (24-32.6); Estimated Creat Clear 52.9; Potassium 3.7 mmol/L (3.4-4.6)
[2017-04-25 03:33] LABS: Urine Bilirubin Negative (NEGATIVE); Urine Blood 250 /ul (NEGATIVE); Urine Ketone Negative (NEGATIVE); Urine Nitrite Negative (NEGATIVE); Urine Protein 100 mg/dL (NEGATIVE); Urine Urobilinogen Normal (NORMAL); Urine pH 5.5 pH (5.0-7.0)
[2017-04-25 03:34] LABS: Urine Appearance Clear; Urine Bacteria None Seen; Urine Color Pale Yellow; Urine RBC 0-5 /hpf (0-5); Urine WBC 0-5 /hpf (0-5)
--- NOTE | 2017-04-25 06:05 | PN ---
<Mago Rosado - Last Filed: 04/25/17 06:07> Subjective - Date and Time Seen Date: 04/25/17 Time: 06:05 Subjective Narrative: states dizziness is about the same - no worse or no better. when asked about his breathing, pt states he didn't come in for his breathing. Objective Objective Narrative: O2 sats better - from 95 to 99% on RA. weight down 1 kg since admission. - Review of Systems Generalized/Overall Review: Reports: Weakness. Denies: Chills, Fever EENTM: Reports: No Symptoms Reported Respiratory: Reports: No Symptoms Reported Cardiac: Reports: No Symptoms Reported Abdominal: Reports: No Symptoms Reported Genitourinary Symptoms: Reports: No Symptoms Reported Musculoskeletal Complaints: Reports: No Symptoms Reported Neurological: Reports: Other - dizziness Skin: Reports: No Symptoms Reported Endocrine: Reports: No Symptoms Reported Misc: All systems neg except as marked - Vitals Vitals: Last Vital Signs Temp 37.0 C 04/25/17 00:48 Pulse 100 04/25/17 02:05 Resp 18 04/25/17 00:48 BP 113/65 04/25/17 00:48 Pulse Ox 99 04/25/17 00:48 - Abnormal Lab Findings Abnormal Lab Findings: Abnormal Lab Results 04/25/17 04/25/17 04/25/17 Range/Units 01:45 01:45 03:17 WBC 10.7 H (4.0-10.5) K/mm3 RBC 4.23 L (4.7-6.0) M/mm3 Hgb 11.5 L (13.5-18.0) gm/dL Hct 33.3 L (42.0-52.0) % RDW 14.6 H (11.5-14.0) % Immature Gran # (Auto) 0.04 H (0.000-0.0310) K/mm3 Lymphocytes # 3.7 H (1.5-3.5) k/mm3 BUN 33 H (6-23) mg/dL Creatinine 1.76 H (0.4-1.4) mg/dL Est GFR (Non-Af Amer) 44 L (60-130) mL/min Random Glucose 224 H (70-110) mg/dL Urine Protein 100 H (NEGATIVE) mg/dL Urine Glucose (UA) 500 H (NEGATIVE) mg/dL Urine Blood 250 H (NEGATIVE) /ul Prot Sulfosalicylic Acd 4+ H (0) mg/dL - Exam Constitutional: Present: Alert, No distress, Looks Older than stated age ENT Exam: Present: hearing grossly normal Neck: Present: full range of motion Breasts: Present: Exam deferred Respiratory: Present: chest non-tender, lungs clear - except fine crackles in right base, no respiratory distress, no accessory muscle use Cardiovascular/Chest: Present: regular rate, rhythm, systolic murmur - 11/18 Abdomen: Present: soft, nontender, nondistended /Rectal: Present: Exam deferred Extremity: Present: non-tender, normal inspection - right and left to above the knee Skin Exam: Present: normal color, warm/dry, no cyanosis Assessment/Plan Plan Narrative: Weakness - likely multi-factorial - CHF exac and/or vertigo exacerbation and/or deconditioning and/or uncontrolled diabetes and/or CAD and/or chronic hypoxia - pt states pcp is working to see if he qualifies for home O2 - check additional labs: TSH, B12, CK, CKMB wnl - pt is spilling glucose into his urine, ? uncontrolled DM as a cause for his weakness - check orthostatic blood pressures - meclizine po for vertigo episodes - monitor on telemetry - cont pulse ox. - continue lantus while admitted - accu checks achs with sliding scale insulin prn - Nursing to do neurochecks with vital signs - consult PT for weakness and vertigo CHF exac - echo from [facility] (03/09/17) shows normal EF with mild MR, ? diastolic dysfunction - echo from [facility] 04/01/17 showed ef 35-40% with aortic valve sclerosis and mild pulm HTN (unable to assess diastolic function on this echo) - BNP elevated, right mid to lower lung with crackles on admission - will try lasix 40 mg IV x1 - this am (04/25/17), lung sounds improved with only crackles in right base ; weight down 1 kg since yesterday - daily weight - strict I&Os - monitor on tele - cont pulse ox. - CHF teaching while admitted - heart healthy diet Vertigo - the way patient describes current dizzy episode with nausea c/w vertigo - trial meclizine po to see if this help dizziness - consult PT - check orthostatics as a precaution CAD - monitor on telemetry - cont pulse ox - troponin neg and EKG non-acute NATALEE - according to nephrology note at [facility], creatinine plateaued at 1.4-1.6 - per nephrology at [facility], ?cardiorenal syndrome vs nephrotoxic medications vs post infectious GN - hold magnus/arb meds - recheck labs in am - strict I&Os - daily weights history TIA - neuro checks with vital signs as a precaution. Diabetes - continue lantus - ? increase lantus or add another medication for additional blood sugar management. - accu-checks achs with sliding scale insulin prn HTN - vital signs q 4 hour VTE: full code VTE: lovenox GI Proph: none due to allergy. - Problems/Diagnosis (1) Weakness Problem: Acute (2) CAD (coronary artery disease) Problem: Chronic QualifierTitle: Coronary Disease-Associated Artery/Lesion type: [place] artery [place] vs. transplanted heart: [place] heart Associated angina: angina presence unspecified Qualified Code(s): I25.10 - Atherosclerotic heart disease of [place] coronary artery without angina pectoris (3) History of TIA (transient ischemic attack) Problem: Acute (4) NATALEE (acute kidney injury) Problem: Acute (5) CHF (congestive heart failure) Problem: Acute QualifierTitle: Congestive heart failure type: systolic Congestive heart failure chronicity: acute Qualified Code(s): I50.21 - Acute systolic ( congestive) heart failure (6) Vertigo Problem: Acute (7) Diabetes Problem: Chronic QualifierTitle: Diabetes mellitus type: type 2 Diabetes mellitus complication status: with hyperglycemia Diabetes mellitus skilled nursing insulin use: with skilled nursing use Qualified Code(s): E11.65 - Type 2 diabetes mellitus with hyperglycemia; Z79.4 - retirement (current) use of insulin (8) HTN (hypertension) Problem: Chronic QualifierTitle: Hypertension type: essential hypertension Qualified Code( s): I10 - Essential (primary) hypertension <Bill Talley - Last Filed: 04/25/17 17:02> Subjective Subjective Narrative: I agree with the assessment and plan. Has had dizziness with nausea off and on for at least several years. I directly supervised all of our nurse practitioner hospitalist care for this patient. Objective - Vitals Vitals: Last Vital Signs Temp 36.8 C 04/25/17 10:00 Pulse 103 H 04/25/17 10:58 Resp 18 04/25/17 10:00 BP 109/63 04/25/17 10:00 Pulse Ox 97 04/25/17 10:00 - Abnormal Lab Findings Abnormal Lab Findings: Abnormal Lab Results 04/25/17 04/25/17 04/25/17 Range/Units 01:45 01:45 03:17 WBC 10.7 H (4.0-10.5) K/mm3 RBC 4.23 L (4.7-6.0) M/mm3 Hgb 11.5 L (13.5-18.0) gm/dL Hct 33.3 L (42.0-52.0) % RDW 14.6 H (11.5-14.0) % Immature Gran # (Auto) 0.04 H (0.000-0.0310) K/mm3 Lymphocytes # 3.7 H (1.5-3.5) k/mm3 BUN 33 H (6-23) mg/dL Creatinine 1.76 H (0.4-1.4) mg/dL Est GFR (Non-Af Amer) 44 L (60-130) mL/min Random Glucose 224 H (70-110) mg/dL Urine Protein 100 H (NEGATIVE) mg/dL Urine Glucose (UA) 500 H (NEGATIVE) mg/dL Urine Blood 250 H (NEGATIVE) /ul Prot Sulfosalicylic Acd 4+ H (0) mg/dL Assessment/Plan - Problems/Diagnosis (1) Systolic CHF, chronic Problem: Chronic (2) Stage 3 chronic kidney disease Problem: Chronic (3) Elevated brain natriuretic peptide (BNP) level Problem: Acute (4) History of TIA (transient ischemic attack) Problem: Chronic (5) Vertigo Problem: Acute (6) Weakness Problem: Acute (7) CAD (coronary artery disease) Problem: Chronic Qualifiers: Coronary Disease-Associated Artery/Lesion type: [place] artery [place] vs. transplanted heart: [place] heart Associated angina: angina presence unspecified Qualified Code(s): I25.10 - Atherosclerotic heart disease of [place] coronary artery without angina pectoris (8) COPD (chronic obstructive pulmonary disease) Problem: Chronic Qualifiers: COPD type: emphysema Emphysema type: panlobular Qualified Code(s): J43.1 - Panlobular emphysema (9) Migraine Problem: Chronic Qualifiers: Migraine type: without aura Status migrainosus presence: without status migrainosus Intractability: not intractable Qualified Code(s): G43.009 - Migraine without aura, not intractable, without status migrainosus (10) Tinnitus aurium Problem: Chronic Qualifiers: Laterality: bilateral Qualified Code(s): H93.13 - Tinnitus, bilateral (11) CVA (cerebral vascular accident) Problem: Chronic Qualifiers: CVA mechanism: unspecified Qualified Code(s): I63.9 - Cerebral infarction, unspecified (12) Diabetic foot ulcer Problem: Inactive Qualifiers: Diabetic foot ulcer location: other Diabetes mellitus type: type 2 Laterality: right Non-pressure ulcer stage: with fat layer exposed Qualified Code(s): E11.621 - Type 2 diabetes mellitus with foot ulcer; L97.512 - Non-pressure chronic ulcer of other part of right foot with fat layer exposed (13) HTN (hypertension) Problem: Chronic Qualifiers: Hypertension type: essential hypertension Qualified Code(s): I10 - Essential (primary) hypertension (14) Recent non-ST elevation myocardial infarction Problem: Resolved
[2017-04-25] MEDS: INSULIN LISPRO 100 UNITS/ML VIAL SC SCH ×2 (07:39→12:08)
[2017-04-25] MEDS ORDERED: ONDANSETRON 8 MG TAB.RAPDIS PO SCH (07:45)
[2017-04-25] MEDS: CARVEDILOL 12.5 MG TABLET PO SCH (08:07)
--- NOTE | 2017-04-25 08:27 | DS ---
(1) Systolic CHF, chronic Problem: Chronic (2) Stage 3 chronic kidney disease Problem: Chronic (3) Elevated brain natriuretic peptide (BNP) level Problem: Acute (4) History of TIA (transient ischemic attack) Problem: Chronic (5) Vertigo Problem: Acute (6) Weakness Problem: Acute (7) CAD (coronary artery disease) Problem: Chronic Qualifiers: Coronary Disease-Associated Artery/Lesion type: [place] artery [place] vs. transplanted heart: [place] heart Associated angina: angina presence unspecified Qualified Code(s): I25.10 - Atherosclerotic heart disease of [place] coronary artery without angina pectoris (8) COPD (chronic obstructive pulmonary disease) Problem: Chronic Qualifiers: COPD type: emphysema Emphysema type: panlobular Qualified Code(s): J43.1 - Panlobular emphysema (9) Migraine Problem: Chronic Qualifiers: Migraine type: without aura Status migrainosus presence: without status migrainosus Intractability: not intractable Qualified Code(s): G43.009 - Migraine without aura, not intractable, without status migrainosus (10) Tinnitus aurium Problem: Chronic Qualifiers: Laterality: bilateral Qualified Code(s): H93.13 - Tinnitus, bilateral (11) CVA (cerebral vascular accident) Problem: Chronic Qualifiers: CVA mechanism: unspecified Qualified Code(s): I63.9 - Cerebral infarction, unspecified (12) Diabetic foot ulcer Problem: Inactive Qualifiers: Diabetic foot ulcer location: other Diabetes mellitus type: type 2 Laterality: right Non-pressure ulcer stage: with fat layer exposed Qualified Code(s): E11.621 - Type 2 diabetes mellitus with foot ulcer; L97.512 - Non-pressure chronic ulcer of other part of right foot with fat layer exposed (13) HTN (hypertension) Problem: Chronic Qualifiers: Hypertension type: essential hypertension Qualified Code(s): I10 - Essential (primary) hypertension (14) Recent non-ST elevation myocardial infarction Problem: Resolved Description of Stay: Remained stable while in the hospital. Was given IV lasix while in the hospital. His report to me this morning was of the sudden onset at 1500 hour yesterday of spinning vertigo with nausea, persistent till till and still ongoing. This was associated with being off balance and difficulty walking. He maintained to me this morning, for these reasons, he presented himself to the [facility] ER. He has had recurrent episodes of similar symptoms for several years, increasing in frequency lately. In the past, he has had an uremarkable brain MRI because of them. Sometimes they cause him to vomit, but not this time. Last month, he also had a non stemi [place]. Please refer to the H&P for details. This morning I arranged vestibular rehab, which will be continued as an outpatient. Procedures Performed: none Discharge Disposition: Home self care Disposition: Home self-care Condition: Good Discharge Diet: Consistent carbs Intermediate Therapy: Physicial Therapy Problem Oriented Discharge Instructions to Patient/Family: Vertigo, Easy-to- Read Additional Patient Instructions (free text): Prior to discharge today, arrange outpatient vestibular therapy. If he does not have an outpatient appt with his doctor within the next week or so, make one please. Prescriptions (Any new or edited meds): Ondansetron [Zofran Odt] 8 mg PO Q6H PRN #100 tab.rapdis PRN Reason: nausea Complete Home Medications List: Complete Home Medication List: Aspirin 325 mg PO DAILY 09/16/15 Clopidogrel Bisulfate [Plavix] 75 mg PO DAILY 09/16/15 HYDROcodone/ACETAMINOPHEN [[place] 5-325] 1 - 2 tab PO Q6H PRN 03/25/16 Insulin Glargine,Hum.rec.anlog [Lantus] 80 units SC HS 03/25/16 Atorvastatin Calcium [Lipitor] 10 mg PO HS 04/24/17 Carvedilol [Coreg] 12.5 mg PO BID 04/24/17 Dulaglutide [Trulicity] 1.5 mg SQ Q7D 04/24/17 Furosemide [Lasix] 80 mg PO DAILY 04/24/17 Isosorbide Mononitrate [Imdur] 30 mg PO DAILY 04/24/17 Nitroglycerin [Nitrostat] 0.4 mg SL Q5MIN PRN 04/24/17 Potassium Chloride [Klor-Con 10] 20 meq PO DAILY 04/24/17 Promethazine HCl [Phenergan (Promethazine)] 25 mg PO QID PRN 04/24/17 Sertraline HCl [Zoloft] 50 mg PO DAILY 04/24/17 traMADol HCL [Ultram] 50 mg PO Q4H PRN 07/13/17 Ondansetron [Zofran Odt] 8 mg PO Q6H PRN #100 tab.mendez 04/25/17 Potassium Chloride [K-Dur] 20 meq PO DAILY tablet. 04/25/17
[2017-04-25] MEDS ORDERED: ASPIRIN 325 MG TABLET.DR PO SCH (09:00)
[2017-04-25] MEDS ORDERED: FUROSEMIDE 80 MG TABLET PO SCH (09:00)
[2017-04-25] MEDS ORDERED: CLOPIDOGREL BISULFATE 75 MG TABLET PO SCH (09:00)
[2017-04-25] MEDS ORDERED: ISOSORBIDE MONONITRATE 30 MG TAB.SR.24H PO SCH (09:00)
[2017-04-25] MEDS ORDERED: SERTRALINE HCL 50 MG TABLET PO SCH (09:00)
[2017-04-25] MEDS ORDERED: POTASSIUM CHLORIDE 20 MEQ TABLET.SA PO SCH (09:00)
[2017-04-25 10:59] VITALS: BP 109/63
[2017-04-25] MEDS ORDERED: ROSUVASTATIN CALCIUM 10 MG TABLET PO SCH (21:00)
== END 2017-04-25 12:35 | disposition home health service (06) ==
LOC: ER 18:38 → MS 20:35
PROVIDERS: ADMIT Nurse Practitioner Critical Care Medicine; ATTEND Allergy & Immunology
DX: I50.23 Acute on chronic systolic (congestive) heart failure (principal); R42 Dizziness and giddiness; R78.89 Finding of other specified substances, not normally found in blood; I12.9 Hypertensive chronic kidney disease with stage 1 through stage 4 chronic kidney disease, or unspecified chronic kidney disease; N18.3 Chronic kidney disease, stage 3 (moderate); R53.1 Weakness; I25.10 Atherosclerotic heart disease of native coronary artery without angina pectoris; J43.1 Panlobular emphysema; Z86.73 Personal history of transient ischemic attack (TIA), and cerebral infarction without residual deficits; I25.2 Old myocardial infarction; Z87.891 Personal history of nicotine dependence; E11.9 Type 2 diabetes mellitus without complications; Z79.4 Long term (current) use of insulin; G43.909 Migraine, unspecified, not intractable, without status migrainosus; H93.13 Tinnitus, bilateral
CPT/HCPCS: 36415; 71020; 80048; 80053; 81001; 82550; 82553; 82607; 83880; 84443; 84484; 85025; 85610; 85730; 87081; 93005; 96372; 96374; 96375; 97162; 99284; G0378; G8981; G8982; G8983; J2405

== ENCOUNTER 2017-06-07 20:31 | Inpatient (IN) | payer MEDICARE, OTHER ==
[2017-06-07] MEDS ORDERED: NORMAL SALINE 1,000 ML IV ONE ×2 (21:01→23:38)
[2017-06-07] MEDS ORDERED: ONDANSETRON HCL/PF 2 MG/ML VIAL IV ONE ×2 (21:01→22:56)
--- NOTE | 2017-06-07 21:10 | ERNOTE ---
<LyssaGoldrizwana Sigala - Last Filed: 06/07/17 22:04> Abdominal HPI - Narrative Date of Service: 06/07/17 - General Chief Complaint: Abdominal Pain Time Seen by Provider: 06/07/17 20:34 Source: patient Exam Limitations: no limitations - Immun/Allergies/Home Medications Immunizatons: IMMUNIZATION HX Immunizations Up to Date Yes History of Influenza Vaccine No Hx Pneumococcal Vaccination No Allergies/Adverse Reactions: Allergies omeprazole Allergy (Verified 06/07/17 20:52) Home Medications: HOME MEDICATIONS Aspirin 325 mg PO DAILY 09/16/15 [Last Taken Unknown] Clopidogrel Bisulfate [Plavix] 75 mg PO DAILY 09/16/15 [Last Taken Unknown] Insulin Glargine,Hum.rec.anlog [Lantus] 80 units SC HS 03/25/16 [Last Taken 07:00] Atorvastatin Calcium [Lipitor] 10 mg PO HS 04/24/17 [Last Taken Unknown] Carvedilol [Coreg] 12.5 mg PO BID 04/24/17 [Last Taken Unknown] Dulaglutide [Trulicity] 1.5 mg SQ Q7D 04/24/17 [Last Taken Unknown] Furosemide [Lasix] 80 mg PO DAILY 04/24/17 [Last Taken Unknown] Isosorbide Mononitrate [Imdur] 30 mg PO DAILY 04/24/17 [Last Taken Unknown] Nitroglycerin [Nitrostat] 0.4 mg SL Q5MIN PRN 04/24/17 [Last Taken Unknown] Sertraline HCl [Zoloft] 50 mg PO DAILY 04/24/17 [Last Taken Unknown] traMADol HCL [Ultram] 50 mg PO Q4H PRN 04/24/17 [Last Taken Unknown] Ondansetron [Zofran Odt] 8 mg PO Q6H PRN #100 tab.rapdis 04/25/17 [Last Taken Unknown] Potassium Chloride [K-Dur] 20 meq PO DAILY tablet.sa 04/25/17 [Last Taken Unknown] Insulin Glargine,Hum.rec.anlog [Brigitte Simmons] 60 unit SQ HS 06/07/17 [Last Taken Unknown] - History of Present Illness Narrative: Has been ill since Friday including N/V/D with generalized abdominal discomfort. Timing: getting worse Quality: moderate, cramping Activities at Onset: none Modifying Factors - (Improves): Present: rest Modifying Factors - (Worsens): Present: movement Associated Symptoms: Present: fever/chills, vomiting, loss of appetite, weakness Prior Abdominal Problems: Present: none Review of Systems - Narrative Narrative: States last Friday he began feeling ill with N/V. Has started with some ongoing diarrhea with generalized abdominal discomfort during that time. States that his abdominal discomfort has moved around describing as a cramping feeling in the RLQ tonight. States he has had his gallbladder removed. - Review of Systems Constitutional: Present: fever, malaise EYE: Present: no symptoms reported ENT: Present: no symptoms reported Respiratory: Present: no symptoms reported Cardiology: Present: no symptoms reported Gastrointestinal/Abdominal: Present: nausea, vomiting, diarrhea, abdominal pain - Cramping RLQ. Genitourinary: Present: no symptoms reported Musculoskeletal: Present: no symptoms reported Skin: Present: no symptoms reported Neurological: Present: dizziness/light-headedness - When he stands up Endocrine: Present: no symptoms reported Hematologic/Lymphatic: Present: no symptoms reported Psych: Present: no symptoms reported - Narrative Narrative: Recent surgery for transmetatarsal amputation of right foot. - Patient's Past Medical History Patient History - Medical: Diabetes Type 2 Insulin Dependent, GERD, Osteoporosis Patient History - Cardiac/Respiratory: Coronary Heart Disease, CHF, Hypertension , Myocardial Infarction, Peripheral Vascular Disease, Valvular Heart Disease Patient History - Cancer: No Hx of Cancer Patient History - Surgical Procedures: Amputation, Cholecystectomy, Cardiac stent, Other, Orthopedic Patient History - Other: None - Family History Mother Family History - Medical: Diabetes Type 2 Insulin Dependent Family History - Cardiac/Respiratory: No pertinent hx Family History - Cancer: No pertinent family hx Father Family History - Medical: Family History - Cardiac/Respiratory: History Unknown Family History - Cancer: History Unknown - Social History Living Situations: home Abuse History: No History of abuse Psych History: No pertinent hx Does anyone smoke in the home?: No Smoking Status: Never smoker Alcohol Use: none Drug Use: none - Immunizations Immunizations Up to Date: Yes Hx Pneumococcal Vaccination: No History of Influenza Vaccine: No Physical Exam - Physical Exam General Appearance: Present: wd/wn, alert, moderate distress Head Exam: Present: normal inspection Eye Exam: Normal inspection: bilateral Neck: Present: normal inspection, nontender, supple, full range of motion Respiratory: Present: no respiratory distress, normal breath sounds, no accessory muscle use, chest nontender, lungs clear Cardiovascular/Chest: Present: regular rate, rhythm, no murmur, normal peripheral pulses - RLE and bilateral upper. Gastrointestinal/Abdominal: Present: normal bowel sounds, nondistended, tenderness - Right upper and lower quadrant. No rebound tenderness. No organomegally. BS present. , other - No rebound. BS present. No guarding Extremity Exam: Present: decreased range of motion, other - Patient wearing a walking boot on the RLE with obvious partial amputation of foot. 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 - Vital Signs Patient's Vital Signs:: I have reviewed the patient's vital signs. Vital Signs: Vital Signs 06/07/17 20:46 Temperature 38.1 C H Pulse Rate 106 H Respiratory 16 Rate Blood Pressure 143/92 O2 Sat by Pulse 98 Oximetry - Progress/Reassessment Chief Complaint: Abdominal Pain - Transfer of Care Physician Sign Out: Alla Omalley Receiving Physician: Christy Green Departure - Departure Clinical Impression: Acute kidney injury Abdominal pain Qualifiers: Abdominal location: generalized Qualified Code(s): R10.84 - Generalized abdominal pain DKA, type 1 Qualifiers: Diabetes mellitus complication detail: without coma Qualified Code(s): E10.10 - Type 1 diabetes mellitus with ketoacidosis without coma Disposition: [facility] Condition: Serious <Christy Green - Last Filed: 06/08/17 00:49> Abdominal HPI - Immun/Allergies/Home Medications Immunizatons: IMMUNIZATION HX Immunizations Up to Date Yes History of Influenza Vaccine No Hx Pneumococcal Vaccination No ED Progress - Vital Signs Vital Signs: Vital Signs 06/07/17 06/07/17 06/07/17 20:46 22:04 22:40 Temperature 38.1 C H 39.1 C H 37.4 C Pulse Rate 106 H 105 H 90 Respiratory 16 18 16 Rate Blood Pressure 143/92 151/76 144/83 O2 Sat by Pulse 98 97 98 Oximetry 06/07/17 23:45 Temperature 37.8 C H Pulse Rate 92 Respiratory 18 Rate Blood Pressure 151/79 O2 Sat by Pulse 97 Oximetry Plan - Plan Plan: This patient was handed to me by the previous provider. Apparently patient has abdominal pain nausea and vomiting and he is a brittle diabetic. Initially when I arrived to the shift the patient's urinalysis revealed glucose greater than 1000 at this time this examiner ordered a serum ketone level which turned out to be positive at 10. An ABG subsequently revealed a bicarbonate of 17. This patient has DKA initially he was given 5 units of IV regular insulin and an insulin drip was initiated and supplemental potassium in the IV fluids was. Face, our hospitalist was consulted and arrives admitting this patient to the MedSurg unit. Report was given and patient is to be admitted. Patient has received total of 2 mg of Dilaudid for his abdominal pain. Stable and appropriate for admission to the floor.
[2017-06-07] MEDS ORDERED: ONDANSETRON HCL/PF 2 MG/ML VIAL ONE (21:15)
[2017-06-07 21:17] LABS: Hematocrit 33.1 % (42.0-52.0); Hemoglobin 11.7 gm/dL (13.5-18.0); Mean Cell Volume 77.5 fl (78-100); Mean Corpuscular Hemoglobin 27.4 pg (27-31); Mean Corpuscular Hgb Conc 35.3 g/dl (32-36); Mean Platelet Volume 8.7 fl (6.0-9.5); Neutrophil # 11.9 K/mm3 (1.3-6.0); Neutrophil % 89.5 % (42-75.0); Platelet Count 255 K/mm3 (150-450); Red Blood Count 4.27 M/mm3 (4.7-6.0); Red Cell Distribution Width 13.5 % (11.5-14.0); White Blood Count 13.3 K/mm3 (4.0-10.5)
[2017-06-07 21:29] LABS: Albumin * 2.8 gm/dl (3.4-5.0); Anion Gap 17.6 mmol/L (6.8-13.8); BUN/Creatinine Ratio 14.2 (9.0-21.6); Bilirubin, Total 0.8 mg/dL (0.0-1.1); Ca. Corrected For Albumin 9.3 mg/dL (8.4-10.2); Calcium * 8.7 mg/dL (7.9-10.9); Carbon Dioxide 23.2 mmol/L (24-32.6); Potassium 3.8 mmol/L (3.4-4.6); Total Protein 8.3 gm/dL (6.2-8.2)
[2017-06-07 21:59] LABS: Urine Appearance Cloudy; Urine Bilirubin Negative (NEGATIVE); Urine Blood 250 /ul (NEGATIVE); Urine Color Dark Yellow; Urine Ketone 5 mg/dL (NEGATIVE); Urine Nitrite Negative (NEGATIVE); Urine Protein 100 mg/dL (NEGATIVE); Urine Specific Gravity 1.025 SP.GR. (1.005-1.030); Urine Urobilinogen Normal (NORMAL); Urine pH 5.5 pH (5.0-7.0)
[2017-06-07 22:00] LABS: Urine Bacteria 2+; Urine RBC >50 /hpf (0-5)
[2017-06-07] MEDS ORDERED: ACETAMINOPHEN 500 MG TABLET PO ONE (22:01)
[2017-06-07] MEDS ORDERED: DIATRIZOATE MEGLUMINE, SODIUM 30 ML BTL PO ONE (22:03)
[2017-06-07] MEDS ORDERED: DIATRIZOATE MEGLUMINE, SODIUM 30 ML BTL ONE (22:05)
[2017-06-07] MEDS ORDERED: HYDROmorphone HCL 1 MG/ML DISP.SYRIN IV ONE (22:56)
[2017-06-07] MEDS ORDERED: INSULIN REGULAR, HUMAN 100 UNITS/ML VIAL IV ONE (23:39)
[2017-06-07] MEDS ORDERED: INSULIN REGULAR, HUMAN 100 UNITS/ML VIAL ONE (23:40)
[2017-06-07 23:48] LABS: Hemoglobin A1C 11.3 % (4.00-6.0)
[2017-06-08] MEDS ORDERED: INSULIN REGULAR HUMAN REC 100 UNITS in NORMAL SALINE 100 ML IV PRN (00:29)
[2017-06-08] MEDS ORDERED: POTASSIUM CHLORIDE 100 ML IV ONE ×2 (00:34→00:38)
[2017-06-08] MEDS ORDERED: HYDROmorphone HCL 1 MG/ML DISP.SYRIN IV ONE ×2 (00:41→00:50)
[2017-06-08] MEDS ORDERED: HYDROmorphone HCL 1 MG/ML DISP.SYRIN ONE (00:42)
--- NOTE | 2017-06-08 01:38 | HP ---
Addendum entered and electronically signed by Symone Godinez ARNP 07/17/17 06:57: Addendum entered and electronically signed by Christy Green MD 06/25/17 07: 59: the addendum below was entered by error on the improper document. Addendum entered and electronically signed by Christy Green MD 06/09/17 03: 22: I was contacted by Dr Perez the radiologist and was told that patient's CT of abdomen and pelvis was COMPLETELY NORMAL prior to the patient getting admitted to the Med/surg floor Alexandro Green MD Original Note: <Christy Green - Last Filed: 06/08/17 06:14> Immunizations: IMMUNIZATION HX Immunizations Up to Date Yes History of Influenza Vaccine No Hx Pneumococcal Vaccination No Allergies/Adverse Reactions: Allergies Allergy/AdvReac Type Severity Reaction Status Date / Time omeprazole Allergy Verified 06/07/17 20:52 Home Medications: HOME MEDICATIONS Atorvastatin Calcium [Lipitor] 10 mg PO HS 04/24/17 [Last Taken Unknown] Carvedilol [Coreg] 12.5 mg PO BID 04/24/17 [Last Taken Unknown] Isosorbide Mononitrate [Imdur] 30 mg PO DAILY 04/24/17 [Last Taken Unknown] Nitroglycerin [Nitrostat] 0.4 mg SL Q5MIN PRN 04/24/17 [Last Taken Unknown] Ondansetron [Zofran Odt] 8 mg PO Q6H PRN #100 tab.rapdis 04/25/17 [Last Taken Unknown] Aspirin [Aspirin Enteric Coated] 325 mg PO DAILY tablet. 06/18/17 [Last Taken Unknown] Cholecalciferol (Vitamin D3) [Vitamin D3] 2,000 unit PO DAILY #30 capsule [Last Taken Unknown] Clopidogrel Bisulfate [Plavix] 75 mg PO DAILY tablet 06/18/17 [Last Taken Unknown] Insulin Glargine,Hum.rec.anlog [Lantus] 20 units SC HS vial 06/18/17 [Last Taken Unknown] Insulin Lispro [Humalog] 3 units SC ACINS #1 vial 06/18/17 [Last Taken Unknown] Sennosides/Docusate Sodium [Senokot-S] 2 tab PO HS tablet 06/18/17 [Last Taken Unknown] Sertraline HCl [Zoloft] 50 mg PO DAILY tablet 06/18/17 [Last Taken Unknown] amLODIPine BESYLATE [Norvasc] 5 mg PO DAILY@2100 #30 tablet 06/18/17 [Last Taken Unknown] oxyCODONE HCL/ACETAMINOPHEN [Percocet 5 MG/325 MG] 1 - 2 tab PO Q4H PRN #90 tablet 06/18/17 [Last Taken Unknown] Exam - Exam Vital Signs: Vital Signs - Last Taken Temp 37.1 C 06/08/17 00:46 Pulse 78 06/08/17 02:15 Resp 16 06/08/17 00:46 BP 108/66 06/08/17 00:46 Pulse Ox 96 06/08/17 00:46 Diagnostic Studies: Abnormal Lab Results 06/08/17 06/08/17 06/08/17 Range/Units 04:40 04:40 04:40 WBC 11.8 H (4.0-10.5) K/mm3 RBC 3.75 L (4.7-6.0) M/mm3 Hgb 10.1 L (13.5-18.0) gm/dL Hct 29.3 L (42.0-52.0) % MCH 26.9 L (27-31) pg Immature Gran # (Auto) 0.05 H (0.000-0.0310) K/mm3 Neutrophils % 88.6 H (42-75.0) % Lymphocytes % 7.1 L (20-51) % Neutrophils # 10.5 H (1.3-6.0) K/mm3 Lymphocytes # 0.8 L (1.5-3.5) k/mm3 ESR 113 H (0-10) mm/hr Carbon Dioxide 22.1 L (24-32.6) mmol/L Anion Gap 15.6 H (6.8-13.8) mmol/L BUN 32 H (6-23) mg/dL Creatinine 2.14 H (0.4-1.4) mg/dL Est GFR (Non-Af Amer) 35 L (60-130) mL/min Random Glucose 263 H D (70-110) mg/dL Laboratory Results WBC 11.8 K/mm3 (4.0-10.5) H 06/08/17 04:40 RBC 3.75 M/mm3 (4.7-6.0) L 06/08/17 04:40 Hgb 10.1 gm/dL (13.5-18.0) L 06/08/17 04:40 Hct 29.3 % (42.0-52.0) L 06/08/17 04:40 MCV 78.1 fl (78-100) 06/08/17 04:40 MCH 26.9 pg (27-31) L 06/08/17 04:40 MCHC 34.5 g/dl (32-36) 06/08/17 04:40 RDW 13.5 % (11.5-14.0) 06/08/17 04:40 Plt Count 202 K/mm3 (150-450) 06/08/17 04:40 MPV 8.3 fl (6.0-9.5) 06/08/17 04:40 Immature Gran % (Auto) 0.40 % (0.001-0.429) 06/08/17 04:40 Immature Gran # (Auto) 0.05 K/mm3 (0.000-0.0310) H 06/08/17 04:40 Neutrophils % 88.6 % (42-75.0) H 06/08/17 04:40 Lymphocytes % 7.1 % (20-51) L 06/08/17 04:40 Monocytes % 3.7 % (0.0-9) 06/08/17 04:40 Eosinophils % 0.0 % (0.0-3.0) 06/08/17 04:40 Basophils % 0.2 % (0.0-1.0) 06/08/17 04:40 Nucleated RBC % 0.0 k/mm3 (0-1) 06/08/17 04:40 Neutrophils # 10.5 K/mm3 (1.3-6.0) H 06/08/17 04:40 Lymphocytes # 0.8 k/mm3 (1.5-3.5) L 06/08/17 04:40 Monocytes # 0.4 k/mm3 (0.0-1.0) 06/08/17 04:40 Eosinophils # 0.0 k/mm3 (0.0-0.7) 06/08/17 04:40 Absolute Basophils 0.0 k/mm3 (0.0-0.1) 06/08/17 04:40 ESR 113 mm/hr (0-10) H 06/08/17 04:40 pCO2 29.6 mmHg (35.0-48.0) L 06/08/17 00:02 pO2 75.1 mmHg (83.0-108.0) L 06/08/17 00:02 HCO3 17.7 mmol/L (21.0-28.0) L 06/08/17 00:02 Total CO2 18.6 mmol/L (19.0-24.0) L 06/08/17 00:02 Base Excess -5.7 mmol/L (-2.0-3.0) L 06/08/17 00:02 ABG pH 7.40 (7.35-7.45) 06/08/17 00:02 ABG O2 Sat (Measured) 95.2 % (94.0-98.0) 06/08/17 00:02 Sodium 132 mmol/L (132-142) 06/08/17 04:40 Plasma Sodium 135 mmol/L (130-142) 06/08/17 04:40 Potassium 3.7 mmol/L (3.4-4.6) 06/08/17 04:40 Chloride 98 mmol/L (97-106) 06/08/17 04:40 Carbon Dioxide 22.1 mmol/L (24-32.6) L 06/08/17 04:40 Anion Gap 15.6 mmol/L (6.8-13.8) H 06/08/17 04:40 BUN 32 mg/dL (6-23) H 06/08/17 04:40 Creatinine 2.14 mg/dL (0.4-1.4) H 06/08/17 04:40 Est GFR (Non-Af Amer) 35 mL/min (60-130) L 06/08/17 04:40 BUN/Creatinine Ratio 15.0 (9.0-21.6) 06/08/17 04:40 Random Glucose 263 mg/dL (70-110) H D 06/08/17 04:40 Mean Blood Glucose 290 mg/dL 06/07/17 22:10 Hemoglobin A1c 11.3 % (4.00-6.0) H 06/07/17 22:10 Lactic Acid, Venous 1.7 mmol/L (0.4-1.9) 06/07/17 21:10 Calcium 7.9 mg/dL (7.9-10.9) 06/08/17 04:40 Calcium Adj for Albumin 9.3 mg/dL (8.4-10.2) 06/07/17 21:10 Total Bilirubin 0.8 mg/dL (0.0-1.1) 06/07/17 21:10 AST 17 U/L (0-48) 06/07/17 21:10 ALT 15 U/L (19-67) L 06/07/17 21:10 Alkaline Phosphatase 153 U/L (50-170) 06/07/17 21:10 Troponin I 0.018 ng/ml (0.00-0.10) 06/07/17 23:00 C-Reactive Prot, Quant 23.0 mg/dL (0.0-0.9) H 06/08/17 00:01 Total Protein 8.3 gm/dL (6.2-8.2) H 06/07/17 21:10 Albumin 2.8 gm/dl (3.4-5.0) L 06/07/17 21:10 Amylase 34 U/L (25-115) 06/07/17 21:10 Lipase 111 U/L (73-393) 06/07/17 21:10 Urine Color Dark yellow 06/07/17 21:45 Urine Appearance Cloudy 06/07/17 21:45 Urine pH 5.5 pH (5.0-7.0) 06/07/17 21:45 Ur Specific [place] 1.025 SP.GR. (1.005-1.030) 06/07/17 21:45 Urine Protein 100 mg/dL (NEGATIVE) H 06/07/17 21:45 Urine Glucose (UA) >=1000 mg/dL (NEGATIVE) H 06/07/17 21:45 Urine Ketones 5 mg/dL (NEGATIVE) 06/07/17 21:45 Urine Blood 250 /ul (NEGATIVE) H 06/07/17 21:45 Urine Nitrate Negative (NEGATIVE) 06/07/17 21:45 Urine Bilirubin Negative mg/dl (NEGATIVE) 06/07/17 21:45 Prot Sulfosalicylic Acd 4+ mg/dL (0) H 06/07/17 21:45 Urine Urobilinogen Normal EU/dl (NORMAL) 06/07/17 21:45 Ur Leukocyte Esterase Negative /ul (NEGATIVE) 06/07/17 21:45 Urine RBC >50 /hpf (0-5) H 06/07/17 21:45 Urine WBC 5-10 /hpf (0-5) H 06/07/17 21:45 Ur Epithelial Cells 0-5 /hpf (0-5) 06/07/17 21:45 Urine Bacteria 2+ (NONE) H 06/07/17 21:45 Urine Culture Comments Culture to follow 06/07/17 21:45 Serum Ketones Positive - 10mg/dl (NEGATIVE) H 06/07/17 21:10 Assessment/Plan - Narrative Narrative: I was contacted by Dr Perez the radiologist and was told that patient's CT of abdomen and pelvis was COMPLETELY NORMAL prior to the patient getting admitted to the Med/surg floor Alexandro Green MD <Symone Godinez - Last Filed: 07/04/17 03:15> Chief Complaint - Chief Complaint Date of Service: 06/08/17 Time of Service: 01:36 Chief Complaint: " Diarrhea, dizziness, Vomiting". Source of HPI - Pt; unreliable, ERP report, History of Present Illness: Mr. Puentes is a 51-yr-old WM who receives his primary care at the [facility] in [place]. His PMH involves: CVA, DM II (Poorly Controlled), CAD; s/p PTCA & Stents, CHF, Depression, HTN, LT BKA & Kidney Stone. Pt appears to be an imprecise historian as noted with delayed thinking during the questioning examination. He reports that for the last 6 days, he has had diarrhea up to 9 times a day.The diarrhea is accompanied by Abdominal pain on the RUQ & RLQ and it's aching in nature. He denies noting any blood, but says they are liquid stools mostly. He reports that he was on antibiotics 1 month ago at [facility] but medical request for information did not indicate that he was treated there. He has not been able to eat due to nausea, but says he has had better luck in keeping the liquids down. Today, he vomited for the first time and therefore chose to come to the [facility] ER. He reports that he has had 'on and off' fevers and chills for the past 6 days and the highest temp was 102. At the ED, he was febrile with a temp of 38.1 & 39.1 subsequently, along with WBC of 13,000 and a LT shift. He had initial work-up by the first ERP which also involved Abdominal X-ray and a follow-up CT Abdomen. However, both imaging did not reveal any acute findings. The second on-coming ERP checked serum ketones as UA had shown he had urine glucose > 1000 and that turned out to be positive. The ERP contacted this provider to admit pt for DKA. However this diagnosis was unlikely as the ABGs showed ph of 7.4 and CO2 of 23.2 and these results are essential in making diagnosis of DKA. Upon my examination of the pt, it became evident that Mr. Puentes had a tunneling,draining diabetic wound ulcer on the plantar aspect of RT foot along with notable Erthymema on the surrounding skin. The area was hot to touch. He states that this wound developed 7 days ago and has been gradually getting worse. Off- note, Mr. Puentes was admitted to the [facility] on 03/03/17 for Sepsis, Pneumonia, & Cellulitis of the RT foot. He had debridement of the wound on the lateral side of the RT foot by Podiatry (Dr. Aleah Zeng). Dr. Zeng discussed the Osteomyeltitis findings on the MRI of foot and the need for surgery. The pt opted to transfer to the [facility] so as to be under the care of his previous surgeon. He was then transfer from our facility to the [facility] on 03/09/17. Currently, there are no imaging studies of the foot. It is a reasonable expectation for him to be admitted inpatient due likelihood of Osteomyelitis, which puts him at a high risk for systemic complications such as bacteremia or sepsis. - Patient's Past Medical History Patient History - Medical: Diabetes Type 2 Insulin Dependent, GERD, Osteoporosis Patient History - Cardiac/Respiratory: Coronary Heart Disease, CHF, Hypertension , Myocardial Infarction, Peripheral Vascular Disease, Valvular Heart Disease Patient History - Cancer: No Hx of Cancer Patient History - Surgical Procedures: Amputation, Cholecystectomy, Cardiac stent - Stents placed on the follwoing years: 06/30/15, 06/14/15,06/22/20152016, 04/03/17. , Other, Orthopedic Patient History - Other: None - Family History Mother Family History - Medical: Diabetes Type 2 Insulin Dependent Family History - Cardiac/Respiratory: No pertinent hx Family History - Cancer: No pertinent family hx Father Family History - Medical: Family History - Cardiac/Respiratory: History Unknown Family History - Cancer: History Unknown - Social History Living Situations: home Abuse History: No History of abuse Psych History: No pertinent hx Does anyone smoke in the home?: No Smoking Status: Never smoker Alcohol Use: none Drug Use: none - Immunizations Immunizations Up to Date: Yes Hx Pneumococcal Vaccination: No History of Influenza Vaccine: No Review Of Systems (GEN) - Review of Systems Generalized/Overall Review: Present: Weakness, Chills, Fever, Malaise, Diaphoresis EENTM: Absent: Eye Pain, Blurred Vision, Double Vision, Ear Discharge Respiratory: Present: Cough. Absent: Shortness of Breath, Orthopnea, Wheezing Cardiac: Absent: Chest Pain, Edema, Palpitations Abdominal: Present: Nausea, Vomiting, Abdominal Pain, Diarrhea. Absent: Hematemesis, Constipation Genitourinary: Absent: Burning, Itching, Urgency, Frequency Musculoskeletal: Present: Joint Pain, Back Pain, Other Neurological: Present: Anxiety, Depressed. Absent: Headache, Emotional Problems Skin: Present: Dryness Endocrine: Present: Increased Hunger. Absent: Intolerance to Cold, Flushing, Increased Thirst Misc: All systems neg except as marked Exam - Exam Vital Signs: Vital Signs - Last Taken Temp 37.1 C 06/08/17 00:46 Pulse 89 06/08/17 00:46 Resp 16 06/08/17 00:46 BP 108/66 06/08/17 00:46 Pulse Ox 96 06/08/17 00:46 Constitutional: Present: Alert, Oriented x3, Cooperative, No distress ENT Exam: Present: normal ENT inspection, dry mucous membranes. Absent: nasal congestion, nasal drainage Eye Exam: bilateral eye: normal inspection, PERRL Neck: Present: non-tender, full range of motion Back Exam: Present: normal inspection Breasts: Present: Exam deferred Respiratory: Present: no accessory muscle use, No rales Cardiovascular/Chest: Present: regular rate, rhythm, no chest tenderness, no murmur Abdomen: Present: Normal bowel sounds, tender - RUQ & RLQ, guarding /Rectal: Present: Exam deferred Extremity: Present: other - LT BKA, RT foot is missing the first two digits, Skin Exam: Present: other - Erythema on posterior of RT foot, hot to touch. He has an induration, tunneling draining wound on the Plantar aspect of the foot. It's noted to have a foul smell and is draining serosanguineous fluid. It's approximately 0.5 cm deep and 1.2x 1.0 in size. Lymphatic: Present: no adenopathy Neurologic: Present: no motor/sensory deficits, alert, oriented x 3 Appearance: Present: disheveled, impaired insight Eye contact: Present: cooperative, good eye contact, decreased rate of speech Thoughts: Present: no apparent hallucination Diagnostic Studies: Laboratory Results WBC 13.3 K/mm3 (4.0-10.5) H 06/07/17 21:10 RBC 4.27 M/mm3 (4.7-6.0) L 06/07/17 21:10 Hgb 11.7 gm/dL (13.5-18.0) L 06/07/17 21:10 Hct 33.1 % (42.0-52.0) L 06/07/17 21:10 MCV 77.5 fl (78-100) L 06/07/17 21:10 MCH 27.4 pg (27-31) 06/07/17 21:10 MCHC 35.3 g/dl (32-36) 06/07/17 21:10 RDW 13.5 % (11.5-14.0) 06/07/17 21:10 Plt Count 255 K/mm3 (150-450) 06/07/17 21:10 MPV 8.7 fl (6.0-9.5) 06/07/17 21:10 Immature Gran % (Auto) 0.80 % (0.001-0.429) H 06/07/17 21:10 Immature Gran # (Auto) 0.10 K/mm3 (0.000-0.0310) H 06/07/17 21:10 Neutrophils % 89.5 % (42-75.0) H 06/07/17 21:10 Lymphocytes % 4.8 % (20-51) L 06/07/17 21:10 Monocytes % 4.8 % (0.0-9) 06/07/17 21:10 Eosinophils % 0.0 % (0.0-3.0) 06/07/17 21:10 Basophils % 0.1 % (0.0-1.0) 06/07/17 21:10 Nucleated RBC % 0.0 k/mm3 (0-1) 06/07/17 21:10 Neutrophils # 11.9 K/mm3 (1.3-6.0) H 06/07/17 21:10 Lymphocytes # 0.6 k/mm3 (1.5-3.5) L 06/07/17 21:10 Monocytes # 0.6 k/mm3 (0.0-1.0) 06/07/17 21:10 Eosinophils # 0.0 k/mm3 (0.0-0.7) 06/07/17 21:10 Absolute Basophils 0.0 k/mm3 (0.0-0.1) 06/07/17 21:10 pCO2 29.6 mmHg (35.0-48.0) L 06/08/17 00:02 pO2 75.1 mmHg (83.0-108.0) L 06/08/17 00:02 HCO3 17.7 mmol/L (21.0-28.0) L 06/08/17 00:02 Total CO2 18.6 mmol/L (19.0-24.0) L 06/08/17 00:02 Base Excess -5.7 mmol/L (-2.0-3.0) L 06/08/17 00:02 ABG pH 7.40 (7.35-7.45) 06/08/17 00:02 ABG O2 Sat (Measured) 95.2 % (94.0-98.0) 06/08/17 00:02 Sodium 129 mmol/L (132-142) L 06/07/17 21:10 Plasma Sodium 133 mmol/L (130-142) 06/07/17 21:10 Potassium 3.8 mmol/L (3.4-4.6) 06/07/17 21:10 Chloride 92 mmol/L (97-106) L 06/07/17 21:10 Carbon Dioxide 23.2 mmol/L (24-32.6) L 06/07/17 21:10 Anion Gap 17.6 mmol/L (6.8-13.8) H 06/07/17 21:10 BUN 30 mg/dL (6-23) H 06/07/17 21:10 Creatinine 2.12 mg/dL (0.4-1.4) H 06/07/17 21:10 Est GFR (Non-Af Amer) 35 mL/min (60-130) L D 06/07/17 21:10 BUN/Creatinine Ratio 14.2 (9.0-21.6) 06/07/17 21:10 Random Glucose 376 mg/dL (70-110) H 06/07/17 21:10 Mean Blood Glucose 290 mg/dL 06/07/17 22:10 Hemoglobin A1c 11.3 % (4.00-6.0) H 06/07/17 22:10 Lactic Acid, Venous 1.7 mmol/L (0.4-1.9) 06/07/17 21:10 Calcium 8.7 mg/dL (7.9-10.9) 06/07/17 21:10 Calcium Adj for Albumin 9.3 mg/dL (8.4-10.2) 06/07/17 21:10 Total Bilirubin 0.8 mg/dL (0.0-1.1) 06/07/17 21:10 AST 17 U/L (0-48) 06/07/17 21:10 ALT 15 U/L (19-67) L 06/07/17 21:10 Alkaline Phosphatase 153 U/L (50-170) 06/07/17 21:10 C-Reactive Prot, Quant 23.0 mg/dL (0.0-0.9) H 06/08/17 00:01 Total Protein 8.3 gm/dL (6.2-8.2) H 06/07/17 21:10 Albumin 2.8 gm/dl (3.4-5.0) L 06/07/17 21:10 Amylase 34 U/L (25-115) 06/07/17 21:10 Lipase 111 U/L (73-393) 06/07/17 21:10 Urine Color Dark yellow 06/07/17 21:45 Urine Appearance Cloudy 06/07/17 21:45 Urine pH 5.5 pH (5.0-7.0) 06/07/17 21:45 Ur Specific [place] 1.025 SP.GR. (1.005-1.030) 06/07/17 21:45 Urine Protein 100 mg/dL (NEGATIVE) H 06/07/17 21:45 Urine Glucose (UA) >=1000 mg/dL (NEGATIVE) H 06/07/17 21:45 Urine Ketones 5 mg/dL (NEGATIVE) 06/07/17 21:45 Urine Blood 250 /ul (NEGATIVE) H 06/07/17 21:45 Urine Nitrate Negative (NEGATIVE) 06/07/17 21:45 Urine Bilirubin Negative mg/dl (NEGATIVE) 06/07/17 21:45 Prot Sulfosalicylic Acd 4+ mg/dL (0) H 06/07/17 21:45 Urine Urobilinogen Normal EU/dl (NORMAL) 06/07/17 21:45 Ur Leukocyte Esterase Negative /ul (NEGATIVE) 06/07/17 21:45 Urine RBC >50 /hpf (0-5) H 06/07/17 21:45 Urine WBC 5-10 /hpf (0-5) H 06/07/17 21:45 Ur Epithelial Cells 0-5 /hpf (0-5) 06/07/17 21:45 Urine Bacteria 2+ (NONE) H 06/07/17 21:45 Urine Culture Comments Culture to follow 06/07/17 21:45 Serum Ketones Positive - 10mg/dl (NEGATIVE) H 06/07/17 21:10 Assessment/Plan - Assessment/Plan (1) Cellulitis Assessment: RT foot noted to have Erythema and Hotness. Will cover with Vancomycin as he has risk factor for MRSA infection and due to fevers, elevated WBC with a Left shift and elevated CRP. ESR is pending. Wound culture of RT diabetic foot ulcer collected. Will switch to the appropriate antibiotics once wound & blood culture results. Monitor CBC. Problem: Acute Qualifiers: Site of cellulitis: extremity Site of cellulitis of extremity: lower extremity Laterality: right Qualified Code(s): L03.115 - Cellulitis of right lower limb (2) Diabetic foot ulcer Assessment: He has an induration, tunneling & draining wound on the Plantar aspect of RT foot. It's noted to have a foul smell and is draining serosanguineous fluid. It' s approximately 0.5 cm deep and 1.2x 1.0 in size. Culture of the wound collected. CRP elevated at 23, ESR is pending. Covered with Vancomycin for now. May need MRI of the foot to check for osteomyelitis. Will consult Podiatry in am. According to the records obtained from the [facility], It appears that no surgery was pursued when he opted to transfer to the [facility] from [facility] on 03/09/17. There was no evidence of Osteomyelitis according to the MRI of RT foot. He was discharged home on 03/14/17 with PICC line and put on Amp/sulbactam and was transitioned to Doxycycline for a total of 4 weeks all together and last day was 04/06. At the [facility], Blood cultures grew MSSA & E gallinarum. He was started on Daptomycin, but he developed rash was was switched to Amp/Sulbactam. Problem: Acute (3) Acute kidney injury Assessment: Is likely pre-renal due to dehydration from diarrhea. Expect an improvement following IVF hydration. Laboratory Tests 03/04/17 03/05/17 03/06/17 05:00 05:20 05:30 Creatinine 0.89 1.03 0.99 03/09/17 04/24/17 04/25/17 07:50 19:41 01:45 Creatinine 1.25 1.67 H D 1.76 H 06/07/17 21:10 Creatinine 2.12 H Problem: Acute (4) Combined abdominal pain, vomiting, and diarrhea Assessment: The CT of the Abdomen did not have any acute findings and neither did the Abdominal X-ray. Will check stools for C-diff. Will also check for occult blood and fecal leukocytes to determine if its noniflammatory or inflammatory diarrhea before checking for other invasive organisms. Problem: Resolved (5) Diabetes Assessment: Will place him in Mod. dose SSI along with lantus. Continue with Accucheck ACHS and Consistent Carb Diet. Problem: Chronic Qualifiers: Diabetes mellitus type: type 2 (6) CAD (coronary artery disease) Assessment: Has had [address] on telemetry monitoring. Is on Plavix , Aspirin & Lipitor. Problem: Chronic Qualifiers: Coronary Disease-Associated Artery/Lesion type: [place] artery [place] vs. transplanted heart: [place] heart Associated angina: angina presence unspecified Qualified Code(s): I25.10 - Atherosclerotic heart disease of [place] coronary artery without angina pectoris (7) CHF (congestive heart failure) Assessment: Stable -Continue Lasix 80 mg po daily. Monitor closely for fluid overload. Problem: Chronic (8) HTN (hypertension) Assessment: Stable - On Coreg. Problem: Chronic Qualifiers: Hypertension type: essential hypertension Qualified Code(s): I10 - Essential (primary) hypertension (9) COPD (chronic obstructive pulmonary disease) Problem: Chronic Qualifiers: COPD type: emphysema Emphysema type: panlobular Qualified Code(s): J43.1 - Panlobular emphysema (10) Vertigo Problem: Chronic
[2017-06-08] MEDS ORDERED: INSULIN ASPART 100 UNITS/ML VIAL SC SCH (01:45)
[2017-06-08] MEDS ORDERED: VANCOMYCIN HCL 1 GM in DEXTROSE 5 % IN WATER 250 ML IV SCH ×2 (02:00)
[2017-06-08] MEDS: NORMAL SALINE 1,000 ML IV PRN ×3 (02:08→21:09)
[2017-06-08] MEDS ORDERED: VANCOMYCIN HCL 1.5 GM in DEXTROSE 5 % IN WATER 250 ML IV SCH ×4 (02:15→03:15)
[2017-06-08] MEDS: HEPARIN SODIUM,PORCINE 5,000 UNITS/ML VIAL SC SCH ×2 (02:21→14:17)
[2017-06-08] MEDS ORDERED: INSULIN LISPRO 100 UNITS/ML VIAL ONE (02:39)
[2017-06-08] MEDS: INSULIN LISPRO 100 UNITS/ML VIAL SC SCH ×3 (02:55→07:47)
[2017-06-08] MEDS: INSULIN ASPART 100 UNITS/ML VIAL SC SCH ×5 (03:17→21:05)
[2017-06-08 04:46] LABS: Hematocrit 29.3 % (42.0-52.0); Hemoglobin 10.1 gm/dL (13.5-18.0); Mean Cell Volume 78.1 fl (78-100); Mean Corpuscular Hemoglobin 26.9 pg (27-31); Mean Corpuscular Hgb Conc 34.5 g/dl (32-36); Mean Platelet Volume 8.3 fl (6.0-9.5); Neutrophil # 10.5 K/mm3 (1.3-6.0); Neutrophil % 88.6 % (42-75.0); Platelet Count 202 K/mm3 (150-450); Red Blood Count 3.75 M/mm3 (4.7-6.0); Red Cell Distribution Width 13.5 % (11.5-14.0); White Blood Count 11.8 K/mm3 (4.0-10.5)
[2017-06-08 04:54] LABS: Anion Gap 15.6 mmol/L (6.8-13.8); Calcium * 7.9 mg/dL (7.9-10.9); Carbon Dioxide 22.1 mmol/L (24-32.6); Estimated Creat Clear 43.5; Potassium 3.7 mmol/L (3.4-4.6)
[2017-06-08] MEDS: ACETAMINOPHEN 325 MG TABLET PO PRN ×2 (06:58→23:29)
[2017-06-08] MEDS ORDERED: ONDANSETRON HCL/PF 2 MG/ML VIAL IV PRN (07:29)
[2017-06-08] MEDS ORDERED: traMADol HCL 50 MG TABLET PO PRN (07:34)
[2017-06-08 08:21] LABS: Bacteria Moderate; White Blood Count None Seen
[2017-06-08 08:22] LABS: Yeast None Seen
[2017-06-08] MEDS: SACCHAROMYCES BOULARDII 250 MG CAPSULE PO SCH ×2 (10:32→21:04)
[2017-06-08] MEDS: ONDANSETRON HCL/PF 2 MG/ML VIAL IV PRN ×2 (10:34→15:46)
[2017-06-08] MEDS: PIPERACILLIN SODIUM/TAZOBACTAM 3.375 GM in DEXTROSE 5 % IN WATER 100 ML IV SCH ×6 (10:38→21:04)
[2017-06-08] MEDS ORDERED: PROMETHAZINE HCL 12.5 MG in DEXTROSE 5 % IN WATER 50 ML IV PRN ×2 (19:05)
[2017-06-08] MEDS ORDERED: ATORVASTATIN CALCIUM 10 MG TABLET PO SCH (21:00)
[2017-06-08] MEDS ORDERED: INSULIN GLARGINE,HUM.REC.ANLOG 100 UNITS/ML VIAL SC SCH (21:00)
[2017-06-08] MEDS: CARVEDILOL 12.5 MG TABLET PO SCH (21:04)
[2017-06-09] MEDS: HEPARIN SODIUM,PORCINE 5,000 UNITS/ML VIAL SC SCH ×2 (02:15→14:36)
[2017-06-09] MEDS: VANCOMYCIN HCL 1.5 GM in DEXTROSE 5 % IN WATER 500 ML IV SCH ×4 (05:06→08:30)
[2017-06-09 05:11] LABS: Hematocrit 28.2 % (42.0-52.0); Hemoglobin 9.6 gm/dL (13.5-18.0); Mean Cell Volume 78.8 fl (78-100); Mean Corpuscular Hemoglobin 26.8 pg (27-31); Mean Platelet Volume 8.6 fl (6.0-9.5); Neutrophil # 6.4 K/mm3 (1.3-6.0); Neutrophil % 72.9 % (42-75.0); Platelet Count 206 K/mm3 (150-450); Red Blood Count 3.58 M/mm3 (4.7-6.0); Red Cell Distribution Width 13.5 % (11.5-14.0); White Blood Count 8.8 K/mm3 (4.0-10.5)
[2017-06-09] MEDS: PIPERACILLIN SODIUM/TAZOBACTAM 3.375 GM in DEXTROSE 5 % IN WATER 100 ML IV SCH ×8 (05:11→20:31)
[2017-06-09 05:18] LABS: Anion Gap 14.9 mmol/L (6.8-13.8); BUN/Creatinine Ratio 12.2 (9.0-21.6); Calcium * 7.9 mg/dL (7.9-10.9); Carbon Dioxide 22.3 mmol/L (24-32.6); Estimated Creat Clear 39.3; Potassium 3.2 mmol/L (3.4-4.6)
[2017-06-09] MEDS: INSULIN ASPART 100 UNITS/ML VIAL SC SCH ×2 (06:29→11:51)
--- NOTE | 2017-06-09 07:33 | OR ---
Anesthesia Procedure Note - Anesthesia Procedure Note Narrative: Vital Signs - Last Taken Temp 37.8 C H 06/09/17 00:14 Pulse 71 06/09/17 02:12 Resp 20 06/09/17 00:14 BP 106/54 06/09/17 00:14 Pulse Ox 97 06/09/17 00:14 O2 Oxygen Delivery Method Room Air 06/09/17 07:32 ANESTHESIA PROCEDURE NOTE Date of procedure: 06/09/2017. Time of procedure: 04 21. Performed by: Eladio Landaverde CRNA Assistant Professor Of Archaeology: None . Preprocedure diagnosis: Difficult IV access. Vomiting. Diarrhea. Post procedure diagnosis: Same. Procedure: IV start Indications: Difficult IV access. Findings: 22-gauge Angiocath IV started in patient's right hand. EBL: Minimal. Fluids: N/A. Specimen: N/A. Post procedure condition: The patient tolerated the procedure well. No complications were noted. Thank you for this consultation Eladio Landaverde CRNA
[2017-06-09] MEDS: CARVEDILOL 12.5 MG TABLET PO SCH ×2 (08:51→20:31)
[2017-06-09] MEDS: ISOSORBIDE MONONITRATE 30 MG TAB.SR.24H PO SCH (08:51)
[2017-06-09] MEDS: SACCHAROMYCES BOULARDII 250 MG CAPSULE PO SCH ×2 (08:51→20:31)
[2017-06-09] MEDS ORDERED: CLOPIDOGREL BISULFATE 75 MG TABLET PO SCH (09:00)
[2017-06-09] MEDS ORDERED: SERTRALINE HCL 50 MG TABLET PO SCH (09:00)
[2017-06-09] MEDS: DIPHENOXYLATE HCL/ATROP SULF 2.5 MG TABLET PO PRN ×2 (11:05→12:48)
[2017-06-09] MEDS: POTASSIUM CHLORIDE 40 MEQ in NORMAL SALINE 1,000 ML IV SCH ×3 (11:05→20:30)
[2017-06-09] MEDS: ACETAMINOPHEN 325 MG TABLET PO PRN (12:56)
--- NOTE | 2017-06-09 13:32 | CONS ---
HPI - General Date of Service: 06/09/17 Source: patient Exam Limitations: no limitations - History of Present Illness Initial Comments: Pt seen at bedside. Was seen 2 days ago in the ED with c/o nausea, vomiting, and diarrhea. Had abdominal CT done. On admission was also found to have an ulceration to the plantar surface of his right foot with redness and swelling. Has h/o ulceration to this foot with amputation of the 2nd toe and partial 1st ray. He has been seen and treated by me in the past for ulceration to this foot to the medial aspect. Concerns for osteomyelitis and possible surgical intervention were discussed with the patient at that time and he, per his request, was transferred to [facility] for care by his previous surgeon. States that no surgical care was performed. He was given a PICC line and 4 weeks IV ABX, followed by oral ABX. Had been doing well until about 1 week ago when he removed his sock and saw a large spot of drainage. He then noticed the ulceration to the plantar surface of his right foot and had tried treating at home with dressing changes. I have been consulted for further evaluation and treatment. No studies have been performed on this admission. A culture has been obtained. Timing/Duration: 1 week, getting worse Allergies/Adverse Reactions: Allergies omeprazole Allergy (Verified 06/07/17 20:52) Home Medications: Home Medications Medication Instructions Recorded Last Taken Aspirin 325 mg PO DAILY 09/16/15 Unknown Clopidogrel Bisulfate [Plavix] 75 mg PO DAILY 09/16/15 Unknown Insulin Glargine,Hum.rec.anlog 80 units SC HS 03/25/16 03/25/16 07:00 [Lantus] Atorvastatin Calcium [Lipitor] 10 mg PO HS 04/24/17 Unknown Carvedilol [Coreg] 12.5 mg PO BID 04/24/17 Unknown Dulaglutide [Trulicity] 1.5 mg SQ Q7D 04/24/17 Unknown Furosemide [Lasix] 80 mg PO DAILY 04/24/17 Unknown Isosorbide Mononitrate [Imdur] 30 mg PO DAILY 04/24/17 Unknown Nitroglycerin [Nitrostat] 0.4 mg SL Q5MIN PRN 04/24/17 Unknown Sertraline HCl [Zoloft] 50 mg PO DAILY 04/24/17 Unknown traMADol HCL [Ultram] 50 mg PO Q4H PRN 04/24/17 Unknown Insulin Glargine,Hum.rec.anlog 60 unit SQ HS 06/07/17 Unknown [Brigitte Ordonezana mpj] - Patient's Past Medical History Patient History - Medical: Diabetes Type 2 Insulin Dependent, GERD, Osteoporosis Patient History - Cardiac/Respiratory: Coronary Heart Disease, CHF, Hypertension , Myocardial Infarction, Peripheral Vascular Disease, Valvular Heart Disease Patient History - Cancer: No Hx of Cancer Patient History - Surgical Procedures: Amputation, Cholecystectomy, Cardiac stent - Stents placed on the follwoing years: 06/30/15, 06/14/15,06/22/20152016, 04/03/17. , Other, Orthopedic Patient History - Other: None - Family History Mother Family History - Medical: Diabetes Type 2 Insulin Dependent Family History - Cardiac/Respiratory: No pertinent hx Family History - Cancer: No pertinent family hx Father Family History - Medical: Family History - Cardiac/Respiratory: History Unknown Family History - Cancer: History Unknown - Social History Living Situations: home Abuse History: No History of abuse Psych History: No pertinent hx Does anyone smoke in the home?: No Smoking Status: Never smoker Have you smoked in the past 12 months: No Do you dip or chew tobacco: Yes Patient requests Smoking Cessation Consult: No Initiate information on Smoking Cessation: Yes Alcohol Use: none Drug Use: none - Immunizations Immunizations Up to Date: Yes Hx Pneumococcal Vaccination: No History of Influenza Vaccine: No Medications - Medications Current Medications: Current Medications Acetaminophen (Tylenol) 650 mg PO Q6H PRN PRN Reason: Mild pain Stop: 07/08/17 02:30 Last Admin: 06/09/17 12:56 Dose: 650 mg Carvedilol (Coreg) 12.5 mg PO BID [facility] Stop: 07/08/17 21:01 Last Admin: 06/09/17 08:51 Dose: 12.5 mg Clopidogrel Bisulfate (Plavix) 75 mg PO DAILY [facility] Stop: 07/09/17 09:01 Last Admin: 06/09/17 08:51 Dose: 75 mg Diphenoxylate HCl/Atropine (Lomotil) 2.5 mg PO QID PRN PRN Reason: Diarrhea Stop: 07/09/17 10:52 Last Admin: 06/09/17 12:48 Dose: 2.5 mg Heparin Sodium (Porcine) (Heparin Sodium) 5,000 units SC Q12H [facility] Stop: 07/08/17 02:01 Last Admin: 06/09/17 02:15 Dose: 5,000 units Vancomycin HCl 1.5 gm/ (Dextrose/Water) 500 mls @ 140 mls/hr IV Q24H [facility] Stop: 07/08/17 03:16 Last Admin: 06/09/17 08:30 Dose: 140 mls/hr Promethazine HCl 12.5 mg/ (Dextrose/Water) 50.5 mls @ 200 mls/hr IV Q3H PRN PRN Reason: Nausea Stop: 07/08/17 19:06 Last Infusion: 06/08/17 21:25 Dose: Infused Potassium Chloride 40 meq/ (Sodium Chloride) 1,020 mls @ 200 mls/hr IV .Q5H6M [facility] Stop: 07/09/17 10:01 Last Admin: 06/09/17 11:05 Dose: 200 mls/hr Insulin Aspart (Novolog) 0 units SC ACHSINS [facility] PRN Reason: Protocol Stop: 07/08/17 02:16 Last Admin: 06/09/17 11:51 Dose: 10 units Insulin Human Lispro (Humalog) 10 units SC ONCE [facility] Stop: 07/08/17 03:01 Last Admin: 06/08/17 07:47 Dose: 10 units Isosorbide Mononitrate (Imdur) 30 mg PO DAILY [facility] Stop: 07/09/17 09:01 Last Admin: 06/09/17 08:51 Dose: 30 mg Ondansetron HCl (Zofran) 4 mg IV Q6H PRN PRN Reason: Nausea Stop: 07/08/17 07:30 Last Admin: 06/08/17 15:46 Dose: 4 mg Ondansetron HCl (Zofran) 8 mg IV Q6H PRN PRN Reason: Nausea And Vomiting Stop: 07/08/17 09:45 Last Admin: 06/08/17 10:34 Dose: 8 mg Saccharomyces Boulardii (Florastor) 250 mg PO BID [facility] Stop: 07/08/17 09:46 Last Admin: 06/09/17 08:51 Dose: 250 mg Review of Systems - Review of Systems Generalized/Overall Review: Present: Malaise Abdominal: Present: Nausea, Diarrhea, Bright blood from rectum Neurological: Present: Numbness Skin: Present: Other - Ulceration right foot Physical Examination - Exam Vital Signs: Vital Signs - Last Taken Temp 36.9 C 06/09/17 12:29 Pulse 80 06/09/17 12:29 Resp 18 06/09/17 12:29 BP 129/69 06/09/17 12:29 Pulse Ox 100 06/09/17 12:29 O2 Oxygen Delivery Method Room Air Constitutional: Present: Alert, Oriented x3, Cooperative Peripheral Pulses: dorsalis-pedis (R): 1+ Skin Exam: Present: other - Ulceration to plantar surface of right foot sub area of 2nd metatarsal head measuring 1.4 x 1 x 4.3 cm. Wound does communicate with a small ulceration to the dorsal foot. Loss of tissue to full thickness with exposure of subcutaneous fat layer. Base with mostly fibrotic-necrotic slough tissue with minimal granulation tissue present. Surrounding tissue hyperkeratotic, erythematous, and warm to touch. Moderate purulent drainage, mild odor. No exposed tendon or bone, however does probe to bone. Neurologic: Present: sensory deficit Appearance: Present: disheveled - Results and Findings: Lab/Microbiology results last 24 hrs: Abnormal/Pending Laboratory Last 24 HRS 06/09/17 06/09/17 04:55 04:55 RBC 3.58 L Hgb 9.6 L Hct 28.2 L MCH 26.8 L Immature Gran % (Auto) 0.70 H Immature Gran # (Auto) 0.06 H Lymphocytes % 16.1 L Monocytes % 9.5 H Neutrophils # 6.4 H Lymphocytes # 1.4 L Potassium 3.2 L Carbon Dioxide 22.3 L Anion Gap 14.9 H BUN 29 H Creatinine 2.37 H Est GFR (Non-Af Amer) 31 L Random Glucose 115 H D Culture 06/08/17 07:39 Stool Culture - Preliminary Stool No Pathogens Isolated 06/08/17 01:15 Wound Culture - Preliminary Foot - Right Gram Negative Bacilli Gram Negative Bacilli#2 06/08/17 04:40 - Final Nares MRSA Negative - Assessments/Findings (1) Cellulitis Diagnosis(s): Continue IV ABX per PCP. Problem: Acute Qualifiers: Site of cellulitis: extremity Site of cellulitis of extremity: lower extremity Laterality: right Qualified Code(s): L03.115 - Cellulitis of right lower limb (2) Diabetic foot ulcer Diagnosis(s): Ulceration debrided at bedside to subcutaneous tissue with #15 blade excising all hyperkeratotic tissue from the periphery of the ulceration revealing healthy bleeding subcutaneous wound margins. Surface debrided with #15 blade excising fibrotic-necrotic tissue revealing bleeding subcutaneous wound bed. Some fibrotic-necrotic tissue remains. Upon probing of the ulceration, an abscess is punctured and drained from the dorsal ulceration. Compression applied until purulent drainage turns to serosanguinous. Ulceration to plantar foot lightly packed with dry gauze. Foot dressed with dry gauze, genie, and BELLA bandage. Pt tolerated well without complication. Dressings to be changed daily. Xray and MRI of right foot ordered today. Discussed potential of simple I&D vs TMA vs BKA. Will await results and discuss further surgical care. Pt may again wish to transfer to [facility] for surgical care pending results. Problem: Acute (3) Abscess of right foot Diagnosis(s): Drained at bedside with wound debridement. Continue IV ABX. Await xray/MRI results. Problem: Acute
--- NOTE | 2017-06-09 14:19 | PN ---
Subjective - Date and Time Seen Date: 06/09/17 Time: 14:08 Subjective Narrative: C/O RLQ pain and bloody diarrhea in spite of being on antibiotics 24 hours. 4 BMs since 6 AM to 10 AM Objective - Review of Systems Generalized/Overall Review: Reports: Weakness, Fever Respiratory: Denies: Cough, Shortness of Breath Cardiac: Denies: Chest Pain, Edema Abdominal: Reports: Nausea, Abdominal Pain, Diarrhea - With blood. Denies: Vomiting - Vitals Vitals: Last Vital Signs Temp 36.9 C 06/09/17 12:29 Pulse 80 06/09/17 12:29 Resp 18 06/09/17 12:29 BP 129/69 06/09/17 12:29 Pulse Ox 100 06/09/17 12:29 - Abnormal Lab Findings Abnormal Lab Findings: Laboratory Tests 06/09/17 04:55 WBC 8.8 D Hgb 9.6 L Hct 28.2 L Plt Count 206 06/09/17 04:55 Plasma Sodium 137 Potassium 3.2 L Chloride 103 Carbon Dioxide 22.3 L BUN 29 H Creatinine 2.37 H Est GFR (Non-Af Amer) 31 L Random Glucose 115 H D Calcium 7.9 06/08/17 00:01 ESR 113 H C-Reactive Prot, Quant 23.0 H 06/08/17 06/08/17 07:39 08:00 Stool Occult Blood Positive H Stool White Cell Res 4 Moderate Stool Leukocytes, Qual None seen Stl C.difficile Tox A&B Negative Microbiology 06/08/17 07:39 Stool Stool Culture - Preliminary No Pathogens Isolated 06/07/17 21:40 Urine,Clean Catch Urine Culture - Preliminary No Pathogens Isolated 06/07/17 21:10 Blood Blood Culture - Preliminary Ruling Out Pathogen - Exam Constitutional: Present: Middle aged, Overweight, Looks Older than stated age - looks dehydrated, looks ill. ENT Exam: Present: hearing grossly normal, dry mucous membranes Neck: Present: normal inspection, trachea midline Respiratory: Present: lungs clear, normal breath sounds, no respiratory distress Cardiovascular/Chest: Present: regular rate, rhythm. Absent: tachycardia Abdomen: Present: Normal bowel sounds, soft - tenderness present in RLQ, no rebound, obese. Absent: guarding, rigidity Extremity: Present: other - LT BKA. ulcer under RT foot 1.5 inches towards RT toe with surrounding cellulitis, warm. No pain. Peripheral neuropathy present. Eye contact: Present: cooperative, good eye contact, normal speech Assessment/Plan Plan Narrative: 1. Diabetic ulcer RT Foot: With ESR 113 mm /Hr and CRP 23.0 mg/dl. most likely secondary to osteomyelitis. After blood cultures, patient was started on vancomycin and piperacillin/ azobactam[ adjusted to BUN/creatinine]. Pharmacy to follow levels. Also on Florastar [address] Zeng on consult [Podiatry] MRI of foot ordered by her. 2. Diarrhea with blood: Started since 06/02/17 after he ate pancakes and sausage. Had vomiting on the day of admission. C. difficile negative, Hemoccult positive and associated with RLQ pain. CT of abdomen/pelvis shows nonspecific terminal ileitis and mild lymphadenopathy. Discuss with Dr. Hurley- p-ANCA etc. sent out. 3. Increased BUN/CR: BUN/CR at 30/2.12 on admission; on IV fluids normal saline at 150 mL an hour. Today at 29/2.37. Increase fluids to NS with 40 of KCl at 200 mL an hour. Check electrolytes in a.m. 4. T1 DM: Poorly controlled. A1c 11.3= 290 mg/dL. Decrease Lantus from 80 units to 60 units SQ at HS. Blood glucose screening before meals. 5. Peripheral neuropathy: S/P LT BKA. Penetrating ulcer right foot. Discussed with Dr. Bean [ ID at [facility]] who felt that we could use diphenoxylate atropine or Lomotil to decrease the frequency of diarrhea as he had adequate workup. If the diarrhea was due to bacterial origin, it would have decreased while to zosyn. At this point she felt there was no need to transfer the patient.
[2017-06-09 15:40] LABS: Iron 11 mcg/dL (35-120); Transferrin Sat. (% Sat.) 5 % (15-55)
[2017-06-09] MEDS: INSULIN LISPRO 100 UNITS/ML VIAL SC SCH ×3 (16:40→17:03)
[2017-06-09] MEDS: INSULIN GLARGINE,HUM.REC.ANLOG 100 UNITS/ML VIAL SC SCH (20:33)
[2017-06-09] MEDS ORDERED: ROSUVASTATIN CALCIUM 10 MG TABLET PO SCH (21:00)
[2017-06-10] MEDS: HEPARIN SODIUM,PORCINE 5,000 UNITS/ML VIAL SC SCH ×2 (01:36→14:33)
[2017-06-10] MEDS: PIPERACILLIN SODIUM/TAZOBACTAM 3.375 GM in DEXTROSE 5 % IN WATER 100 ML IV SCH ×8 (01:36→20:40)
[2017-06-10] MEDS: POTASSIUM CHLORIDE 40 MEQ in NORMAL SALINE 1,000 ML IV SCH ×5 (01:39→23:44)
[2017-06-10] MEDS: VANCOMYCIN HCL 1.5 GM in DEXTROSE 5 % IN WATER 500 ML IV SCH ×2 (02:54)
[2017-06-10 06:19] LABS: Albumin * 1.8 gm/dl (3.4-5.0); Anion Gap 16.2 mmol/L (6.8-13.8); BUN/Creatinine Ratio 11.5 (9.0-21.6); Bilirubin, Total 0.3 mg/dL (0.0-1.1); Ca. Corrected For Albumin 9.3 mg/dL (8.4-10.2); Calcium * 7.9 mg/dL (7.9-10.9); Carbon Dioxide 17.2 mmol/L (24-32.6); Magnesium 1.7 mg/dL (1.2-2.8); Phosphorus 2.6 mg/dL (2.2-4.2); Potassium 4.4 mmol/L (3.4-4.6); Total Protein 6.4 gm/dL (6.2-8.2)
[2017-06-10] MEDS: INSULIN LISPRO 100 UNITS/ML VIAL SC SCH ×6 (07:33→17:16)
--- NOTE | 2017-06-10 08:59 | PN ---
Subjective - Date and Time Seen Date: 06/10/17 Time: 08:00 Subjective Narrative: Alberto Puentes is a 51 year old white male who appears generally well. He is admitted for LRQ abdominal pain and an open diabetic ulcer on the plantar aspect of the right foot. He reports LRQ abdominal pain, fever, chills, diarrhea , vomiting, and weakness since last Friday (06/02/17). He complains of continued weakness this morning which he attributes to the vomiting and diarrhea. His stool is more formed in the last 12 hours than it has been previously. He had poor sleep last night due to his IV pump activating every 15 minutes. States that he can't feel his R foot. He resumed eating yesterday and has not had vomiting since beginning solid foods again. Previously had vomiting upon coughing, but recently coughing only brings up phlegm. The LRQ pain is constant and extends to the left shoulder, as well as to the back. Reports that the pain is due to his kidneys. Was supposed to get MRI this am, but states that the "machine wouldn't start up" and will thus be going for MRI later this am. Objective - Review of Systems Generalized/Overall Review: Reports: Weakness, Chills, Fever EENTM: Reports: No Symptoms Reported Respiratory: Reports: Cough Abdominal: Reports: Vomiting, Abdominal Pain, Diarrhea Genitourinary Symptoms: Denies: Itching, Urgency Musculoskeletal Complaints: Reports: Joint Pain Neurological: Reports: Numbness - Vitals Vitals: Last Vital Signs Temp 36.2 C L 06/10/17 06:56 Pulse 60 06/10/17 06:56 Resp 19 06/10/17 06:56 BP 133/65 06/10/17 06:56 Pulse Ox 98 06/10/17 06:56 - Abnormal Lab Findings Abnormal Lab Findings: Abnormal Lab Results 06/09/17 06/10/17 Range/Units Unknown 05:55 Carbon Dioxide 17.2 L (24-32.6) mmol/L Anion Gap 16.2 H (6.8-13.8) mmol/L BUN 27 H (6-23) mg/dL Creatinine 2.35 H (0.4-1.4) mg/dL Est GFR (Non-Af Amer) 31 L (60-130) mL/min Random Glucose 251 H D (70-110) mg/dL Iron 11 L (35-120) mcg/dL TIBC 232 L (260-445) mcg/dL Transferrin % Sat 5 L (15-55) % Albumin 1.8 L (3.4-5.0) gm/dl - Exam Constitutional: Present: Alert, Cooperative, Mild distress, Obese ENT Exam: Present: hearing grossly normal Neck: Present: supple Breasts: Present: Exam deferred Respiratory: Present: lungs clear, No rales, No wheezing Cardiovascular/Chest: Present: regular rate, rhythm, no gallop, no murmur. Absent: diastolic murmur, systolic murmur Abdomen: Present: soft, obese, tender. Absent: rebound tenderness, negative Bello sign Extremity: Present: no calf tenderness, other - foot is wrapped in Kerlex and BELLA bandage- dry, no foul ododr Assessment/Plan - Problems/Diagnosis (1) Bacteremia Problem: Acute Narrative: Staph species x 2 bottles. Continue with IV Zosyn/vanco. await for final culture. (2) Abscess of right foot Problem: Acute Narrative: s/p debridement (3) Cellulitis Problem: Acute Qualifiers: Site of cellulitis: extremity Site of cellulitis of extremity: lower extremity Laterality: right Qualified Code(s): L03.115 - Cellulitis of right lower limb Narrative: continue IV antibiotics (4) Diabetic foot ulcer Problem: Acute Narrative: s/p bedside debridement. continue with IV antibiotics. await Gram Neg bacilli ID and sensitivity (5) Osteomyelitis of right foot Problem: Acute Qualifiers: Osteomyelitis type: unspecified type Qualified Code(s): M86.9 - Osteomyelitis, unspecified Narrative: for MRI today. (6) Abdominal pain Problem: Acute Qualifiers: Abdominal location: right lower quadrant Qualified Code(s): R10.31 - Right lower quadrant pain Narrative: stools are getting formed but still with abdominal pain- while this could be still a viral/bacerial gastroenteritis , it can also be IBD with terminal ileitis (on CTS vs peristalsis). Continue with IV antibiotics and will send IBD panel.
[2017-06-10] MEDS: CARVEDILOL 12.5 MG TABLET PO SCH ×2 (09:27→20:47)
[2017-06-10] MEDS: ISOSORBIDE MONONITRATE 30 MG TAB.SR.24H PO SCH (09:28)
[2017-06-10] MEDS: SACCHAROMYCES BOULARDII 250 MG CAPSULE PO SCH ×2 (09:28→20:47)
[2017-06-10] MEDS: INSULIN GLARGINE,HUM.REC.ANLOG 100 UNITS/ML VIAL SC SCH (20:48)
[2017-06-10] MEDS: ACETAMINOPHEN 325 MG TABLET PO PRN (23:54)
[2017-06-11 01:08] LABS: P-ANCA Titer DNR titer (<1:20)
[2017-06-11] MEDS: HEPARIN SODIUM,PORCINE 5,000 UNITS/ML VIAL SC SCH ×2 (02:17→13:34)
[2017-06-11] MEDS: PIPERACILLIN SODIUM/TAZOBACTAM 3.375 GM in DEXTROSE 5 % IN WATER 100 ML IV SCH ×4 (02:18→09:08)
[2017-06-11] MEDS: VANCOMYCIN HCL 1.5 GM in DEXTROSE 5 % IN WATER 500 ML IV SCH ×2 (03:26)
[2017-06-11] MEDS: POTASSIUM CHLORIDE 40 MEQ in NORMAL SALINE 1,000 ML IV SCH ×2 (04:58→09:08)
[2017-06-11 06:28] LABS: Hematocrit 27.2 % (42.0-52.0); Mean Corpuscular Hemoglobin 26.8 pg (27-31); Mean Corpuscular Hgb Conc 33.1 g/dl (32-36); Mean Platelet Volume 8.4 fl (6.0-9.5); Platelet Count 239 K/mm3 (150-450); Red Blood Count 3.36 M/mm3 (4.7-6.0); Red Cell Distribution Width 14.1 % (11.5-14.0); White Blood Count 8.7 K/mm3 (4.0-10.5)
[2017-06-11 06:45] LABS: Anion Gap 15.9 mmol/L (6.8-13.8); BUN/Creatinine Ratio 9.4 (9.0-21.6); Calcium * 8.3 mg/dL (7.9-10.9); Estimated Creat Clear 43.9; Potassium 4.9 mmol/L (3.4-4.6)
[2017-06-11] MEDS: INSULIN LISPRO 100 UNITS/ML VIAL SC SCH ×6 (07:02→17:30)
[2017-06-11] MEDS: ACETAMINOPHEN 325 MG TABLET PO PRN (08:55)
[2017-06-11] MEDS: DIPHENOXYLATE HCL/ATROP SULF 2.5 MG TABLET PO PRN (08:55)
[2017-06-11] MEDS: ONDANSETRON HCL/PF 2 MG/ML VIAL IV PRN (08:55)
[2017-06-11] MEDS: SACCHAROMYCES BOULARDII 250 MG CAPSULE PO SCH ×2 (08:57→21:05)
[2017-06-11] MEDS: CARVEDILOL 12.5 MG TABLET PO SCH ×2 (08:57→21:06)
[2017-06-11] MEDS: ISOSORBIDE MONONITRATE 30 MG TAB.SR.24H PO SCH (08:58)
--- NOTE | 2017-06-11 09:20 | PN ---
Subjective - Date and Time Seen Date: 06/11/17 Time: 09:16 Subjective Narrative: Patient still complainign of RLQ pain, diarrhea is back. IBD panel pending. MRI shows OM. patient wants BKA. ADDENDUM:Patient is going for BKA tomorrow. Patient denies CP/SOB/Palpitations, F/C. EKG showed NSR with Incomplete RBBB. Discussed case with Dr. Greene- may go ahead with surgery as long as ASA and Plavix is not stopped. Discussed with the patient the risks and benefits of his surgery. He desires to continue with anticpated surgery. may proceed with BKA. Objective - Review of Systems Generalized/Overall Review: Reports: Weakness. Denies: Chills, Fever EENTM: Reports: No Symptoms Reported Respiratory: Denies: Cough, Shortness of Breath Cardiac: Denies: Chest Pain, Palpitations Abdominal: Reports: Vomiting, Abdominal Pain, Diarrhea. Denies: Nausea Genitourinary Symptoms: Denies: Urgency, Frequency Endocrine: Reports: Other - felt cold - Vitals Vitals: Last Vital Signs Temp 36.4 C L 06/11/17 07:11 Pulse 62 06/11/17 08:58 Resp 19 06/11/17 07:11 BP 148/75 06/11/17 08:58 Pulse Ox 97 06/11/17 07:11 - Abnormal Lab Findings Abnormal Lab Findings: Abnormal Lab Results 06/11/17 06/11/17 Range/Units 06:25 06:25 RBC 3.36 L (4.7-6.0) M/mm3 Hgb 9.0 L (13.5-18.0) gm/dL Hct 27.2 L (42.0-52.0) % MCH 26.8 L (27-31) pg RDW 14.1 H (11.5-14.0) % Immature Gran % (Auto) 1.00 H (0.001-0.429) % Immature Gran # (Auto) 0.09 H (0.000-0.0310) K/mm3 Lymphocytes % 18.8 L (20-51) % Potassium 4.9 H (3.4-4.6) mmol/L Chloride 110 H (97-106) mmol/L Carbon Dioxide 18.0 L (24-32.6) mmol/L Anion Gap 15.9 H (6.8-13.8) mmol/L Creatinine 2.12 H (0.4-1.4) mg/dL Est GFR (Non-Af Amer) 35 L (60-130) mL/min Random Glucose 173 H D (70-110) mg/dL - Exam Constitutional: Present: Alert, Oriented x3, Cooperative ENT Exam: Present: hearing grossly normal Neck: Present: supple Breasts: Present: Exam deferred Respiratory: Present: normal breath sounds, No rales, No wheezing Cardiovascular/Chest: Present: regular rate, rhythm, no JVD, no murmur Abdomen: Present: no rebound tenderness, tender, hypoactive Extremity: Present: no calf tenderness, other - Left BKA, Right foot in dressing , dry, slight foul odor Assessment/Plan - Problems/Diagnosis (1) Bacteremia Problem: Acute (2) Abscess of right foot Problem: Acute (3) Cellulitis Problem: Acute Qualifiers: Site of cellulitis: extremity Site of cellulitis of extremity: lower extremity Laterality: right Qualified Code(s): L03.115 - Cellulitis of right lower limb (4) Diabetic foot ulcer Problem: Acute (5) Osteomyelitis of right foot Problem: Acute Qualifiers: Osteomyelitis type: unspecified type Qualified Code(s): M86.9 - Osteomyelitis, unspecified Narrative: MRI shows OM. Dr. Zeng is on consult. Patient wants BKA. (6) Abdominal pain Problem: Acute Qualifiers: Abdominal location: right lower quadrant Qualified Code(s): R10.31 - Right lower quadrant pain Narrative: persistent . awaiting IBD panel. consider repeating his CTS of the abdomen. was on IV zosyn but today changed to IV levaquin per sensitivity to his MSSA and enterobacter cloacae. .
[2017-06-11] MEDS: NORMAL SALINE 1,000 ML IV PRN ×2 (10:13→17:34)
[2017-06-11] MEDS: LEVOFLOXACIN/D5W 750 MG/150 ML BAG IV SCH (10:14)
[2017-06-11] MEDS: MORPHINE SULFATE 4 MG/ML SYRG IV PRN ×2 (10:55→17:19)
--- NOTE | 2017-06-11 13:05 | PN ---
Subjective - Date and Time Seen Date: 06/11/17 Time: 12:30 Subjective Narrative: Pt evaluated at bedside resting. States that his diarrhea has returned and does not have much of an appetite today. Denies any fevers or chills. Denies pain to right foot. Dressing to right foot has been changed by nursing staff. Does have some strike-through drainage dorsally. PCP did see pt this am. Pt is requesting BKA of right LE. He has h/o BKA to left LE after having similar infections and subsequent treatments. Also has had amputation of right 2nd toe and partial 1st ray. He does not want to go through any of that again and is adamant about having BKA. Objective - Review of Systems Generalized/Overall Review: Reports: Malaise Abdominal: Reports: Diarrhea Neurological: Reports: Numbness Skin: Reports: Other - Ulceration right foot - Vitals Vitals: Last Vital Signs Temp 36 C L 06/11/17 10:32 Pulse 80 06/11/17 10:32 Resp 20 06/11/17 10:32 BP 137/53 06/11/17 10:32 Pulse Ox 97 06/11/17 10:32 - Abnormal Lab Findings Abnormal Lab Findings: Abnormal Lab Results 06/11/17 06/11/17 Range/Units 06:25 06:25 RBC 3.36 L (4.7-6.0) M/mm3 Hgb 9.0 L (13.5-18.0) gm/dL Hct 27.2 L (42.0-52.0) % MCH 26.8 L (27-31) pg RDW 14.1 H (11.5-14.0) % Immature Gran % (Auto) 1.00 H (0.001-0.429) % Immature Gran # (Auto) 0.09 H (0.000-0.0310) K/mm3 Lymphocytes % 18.8 L (20-51) % Potassium 4.9 H (3.4-4.6) mmol/L Chloride 110 H (97-106) mmol/L Carbon Dioxide 18.0 L (24-32.6) mmol/L Anion Gap 15.9 H (6.8-13.8) mmol/L Creatinine 2.12 H (0.4-1.4) mg/dL Est GFR (Non-Af Amer) 35 L (60-130) mL/min Random Glucose 173 H D (70-110) mg/dL - Exam Exam Narrative: MRI right foot showing progression of previously noted osteomylitis through the remainder of his 1st metatarsal, now in to the medial cuneiform. Also with likely osteomyelitis to the head of the 2nd metatarsal with fluid collection/ abscess surrounding the distal 2nd met. Draining sinuses connecting the abscess with both the dorsum of the foot as well as an ulceration to the plantar foot. Constitutional: Present: Alert, Oriented x3, Cooperative Skin Exam: Present: other - Ulceration remains to plantar right foot sub 2nd metatarsal head, unchanged from visit 2 days ago. Draining sinus also remains to dorsal foot, drainage has decreased in amount and is now sero-purulent - serosanguinous. Erythema has markedly improved with IV ABX. Neurologic: Present: sensory deficit Appearance: Present: disheveled Assessment/Plan - Problems/Diagnosis (1) Cellulitis Problem: Acute Qualifiers: Site of cellulitis: extremity Site of cellulitis of extremity: lower extremity Laterality: right Qualified Code(s): L03.115 - Cellulitis of right lower limb Narrative: Continue IV ABX. (2) Diabetic foot ulcer Problem: Acute Narrative: Dressing changed today. No debridement. (3) Abscess of right foot Problem: Acute Narrative: Continue IV ABX. Discussed MRI results and surgical care for this foot. Recommend amputation, likely midfoot to remove all current infected bone. Pt does not wish to undergo midfoot amputation. He is requesting BKA as he has had similar infections in his left foot in the past and ended up with a BKA after several months of unsuccessful treatment. Does not wish to have to undergo the same things he did in the past. He "just wants to be done with it. " Requesting surgery be done here by me, however this is out of my scope of practice. Advised that I will place a consultation with our Orthopedic department for evaluation and further treatment/surgery. Pt is in agreement with this plan. (4) Osteomyelitis of right foot Problem: Acute Qualifiers: Osteomyelitis type: unspecified type Qualified Code(s): M86.9 - Osteomyelitis, unspecified Narrative: MRI reviewed. Pt requesting BKA of RLE. Consultation to Orthopedics is placed. Spoke with [facility]RUT[facility] Atkins, about this case and they will plan to evaluate and treat.
--- NOTE | 2017-06-11 13:12 | CONS ---
[facility] - General Date of Service: 06/11/17 Narrative: 51-year-old male patient long-standing history of diabetes mellitus. Patient's been dealing with a diabetic foot ulcer as well as previous amputation of great and second toes on the right foot. Patient developed a new plantar ulcer and increasing pain and swelling and was admitted for IV antibiotics podiatry was consulted. MRI was obtained of his right foot revealing osteomyelitis in the first metatarsal as well as into the first cuneiform and proximally it was noted abscess formation. Orthopedics was consulted due to the fact that the patient is requesting that he be evaluated for consideration of a BKA on the right. Patient was seen today at bedside by myself and Dr. Fabian Source: patient Exam Limitations: no limitations - History of Present Illness Allergies/Adverse Reactions: Allergies omeprazole Allergy (Verified 06/07/17 20:52) Home Medications: Home Medications Medication Instructions Recorded Last Taken Aspirin 325 mg PO DAILY 09/16/15 Unknown Clopidogrel Bisulfate [Plavix] 75 mg PO DAILY 09/16/15 Unknown Insulin Glargine,Hum.rec.anlog 80 units SC HS 03/25/16 03/25/16 07:00 [Lantus] Atorvastatin Calcium [Lipitor] 10 mg PO HS 04/24/17 Unknown Carvedilol [Coreg] 12.5 mg PO BID 04/24/17 Unknown Dulaglutide [Trulicity] 1.5 mg SQ Q7D 04/24/17 Unknown Furosemide [Lasix] 80 mg PO DAILY 04/24/17 Unknown Isosorbide Mononitrate [Imdur] 30 mg PO DAILY 04/24/17 Unknown Nitroglycerin [Nitrostat] 0.4 mg SL Q5MIN PRN 04/24/17 Unknown Sertraline HCl [Zoloft] 50 mg PO DAILY 04/24/17 Unknown traMADol HCL [Ultram] 50 mg PO Q4H PRN 04/24/17 Unknown Insulin Glargine,Hum.rec.anlog 60 unit SQ HS 06/07/17 Unknown [Brigitte Simmons] - Patient's Past Medical History Patient History - Medical: Diabetes Type 2 Insulin Dependent, GERD, Osteoporosis Patient History - Cardiac/Respiratory: Coronary Heart Disease, CHF, Hypertension , Myocardial Infarction, Peripheral Vascular Disease, Valvular Heart Disease Patient History - Cancer: No Hx of Cancer Patient History - Surgical Procedures: Amputation, Cholecystectomy, Cardiac stent - Stents placed on the follwoing years: 06/30/15, 06/14/15,06/22/20152016, 04/03/17. , Other, Orthopedic Patient History - Other: None - Family History Mother Family History - Medical: Diabetes Type 2 Insulin Dependent Family History - Cardiac/Respiratory: No pertinent hx Family History - Cancer: No pertinent family hx Father Family History - Medical: Family History - Cardiac/Respiratory: History Unknown Family History - Cancer: History Unknown - Social History Living Situations: home Abuse History: No History of abuse Psych History: No pertinent hx Does anyone smoke in the home?: No Smoking Status: Never smoker Have you smoked in the past 12 months: No Do you dip or chew tobacco: Yes Patient requests Smoking Cessation Consult: No Initiate information on Smoking Cessation: Yes Alcohol Use: none Drug Use: none - Immunizations Immunizations Up to Date: Yes Hx Pneumococcal Vaccination: No History of Influenza Vaccine: No Medications - Medications Current Medications: Current Medications Acetaminophen (Tylenol) 650 mg PO Q6H PRN PRN Reason: Mild pain Stop: 07/08/17 02:30 Last Admin: 06/11/17 08:55 Dose: 650 mg Carvedilol (Coreg) 12.5 mg PO BID [facility] Stop: 07/08/17 21:01 Last Admin: 06/11/17 08:57 Dose: 12.5 mg Diphenoxylate HCl/Atropine (Lomotil) 2.5 mg PO QID PRN PRN Reason: Diarrhea Stop: 07/09/17 10:52 Last Admin: 06/11/17 08:55 Dose: 2.5 mg Heparin Sodium (Porcine) (Heparin Sodium) 5,000 units SC Q12H MICHELLE Stop: 07/08/17 02:01 Last Admin: 06/11/17 02:17 Dose: 5,000 units Levofloxacin/Dextrose (Levaquin) 750 mg in 150 mls @ 100 mls/hr IV Q24H MICHELLE PRN Reason: Protocol Stop: 07/11/17 09:31 Last Admin: 06/11/17 10:14 Dose: 100 mls/hr Sodium Chloride (Sodium Chloride 0.9%) 1,000 mls @ 150 mls/hr IV .Q6H40M PRN PRN Reason: HYDRATION Stop: 07/11/17 09:25 Last Admin: 06/11/17 10:13 Dose: 150 mls/hr Insulin Glargine (Lantus) 60 units SC HS [facility] Stop: 07/08/17 21:01 Last Admin: 06/10/17 20:48 Dose: 60 units Insulin Human Lispro (Humalog) 0 - 6 units SC ACINS [facility] PRN Reason: Protocol Stop: 07/09/17 17:01 Last Admin: 06/11/17 11:49 Dose: 2 units Insulin Human Lispro (Humalog) 3 units SC ACINS [facility] Stop: 07/09/17 15:31 Last Admin: 06/11/17 11:49 Dose: 3 units Isosorbide Mononitrate (Imdur) 30 mg PO DAILY [facility] Stop: 07/09/17 09:01 Last Admin: 06/11/17 08:58 Dose: 30 mg Morphine Sulfate (Morphine Sulfate) 4 mg IV Q6H PRN PRN Reason: MODERATE Pain Stop: 07/11/17 10:31 Last Admin: 06/11/17 10:55 Dose: 4 mg Ondansetron HCl (Zofran) 4 mg IV Q6H PRN PRN Reason: Nausea Stop: 07/08/17 07:30 Last Admin: 06/11/17 08:55 Dose: 4 mg Ondansetron HCl (Zofran) 8 mg IV Q6H PRN PRN Reason: Nausea And Vomiting Stop: 07/08/17 09:45 Last Admin: 06/08/17 10:34 Dose: 8 mg Saccharomyces Boulardii (Florastor) 250 mg PO BID [facility] Stop: 07/08/17 09:46 Last Admin: 06/11/17 08:57 Dose: 250 mg Physical Examination - Exam Narrative: Examination today of the right foot reveals surgically absent great and second toes there is noted swelling to the foot. No erythema is noted. There is a diabetic foot ulcer present to the plantar surface and fourth toes. Patient has decreased overall sensation to the foot pulses are noted to be diminished to his foot. He has minimal edema to the lower leg. Vital Signs: Vital Signs - Last Taken Temp 36 C L 06/11/17 10:32 Pulse 80 06/11/17 10:32 Resp 20 06/11/17 10:32 BP 137/53 06/11/17 10:32 Pulse Ox 97 06/11/17 10:32 O2 Oxygen Delivery Method Room Air - Results and Findings: Narrative: Osteomyelitis right foot with abscess formation Plan. Dr. Fabian has met with the patient and discussed options. Patient is insistent that he does not want to deal with the current persistent ulcers and need for toe amputations. Patient is requesting a below-knee amputation on the right. Dr. Fabian is discussed this with the patient at length regarding ambulation status, wound healing, possible need for additional procedures. Based on the patient's MRI scan findings of the significant osteomyelitis does not appear to be any other course Van consideration of a right below-knee amputation. This will be completed on 8:30 2017. Lab/Microbiology results last 24 hrs: Abnormal/Pending Laboratory Last 24 HRS 06/11/17 06/11/17 06:25 06:25 RBC 3.36 L Hgb 9.0 L Hct 27.2 L MCH 26.8 L RDW 14.1 H Immature Gran % (Auto) 1.00 H Immature Gran # (Auto) 0.09 H Lymphocytes % 18.8 L Potassium 4.9 H Chloride 110 H Carbon Dioxide 18.0 L Anion Gap 15.9 H Creatinine 2.12 H Est GFR (Non-Af Amer) 35 L Random Glucose 173 H D Culture 06/08/17 01:15 Wound Culture - Final Foot - Right Enterobacter Cloacae Enterobacter Cloacae#2
[2017-06-11] MEDS: INSULIN GLARGINE,HUM.REC.ANLOG 100 UNITS/ML VIAL SC SCH (21:06)
[2017-06-12] MEDS: NORMAL SALINE 1,000 ML IV PRN (00:03)
[2017-06-12] MEDS: HEPARIN SODIUM,PORCINE 5,000 UNITS/ML VIAL SC SCH ×2 (01:08→15:24)
[2017-06-12 05:28] LABS: Prothrombin Time (Patient) 10.2 Seconds (9.4-11.4)
[2017-06-12 05:33] LABS: INR 0.98 INR (0.90-1.10); Partial Thrombolplastin Time 26.6 Seconds (24-32)
[2017-06-12 06:43] LABS: Hematocrit 26.4 % (42.0-52.0); Hemoglobin 8.8 gm/dL (13.5-18.0); Mean Corpuscular Hemoglobin 26.7 pg (27-31); Mean Corpuscular Hgb Conc 33.3 g/dl (32-36); Neutrophil % 71.9 % (42-75.0); Platelet Count 297 K/mm3 (150-450); Red Cell Distribution Width 14.2 % (11.5-14.0); White Blood Count 9.8 K/mm3 (4.0-10.5)
[2017-06-12] MEDS: INSULIN LISPRO 100 UNITS/ML VIAL SC SCH ×6 (06:44→17:31)
[2017-06-12 06:47] LABS: Anion Gap 17.4 mmol/L (6.8-13.8); BUN/Creatinine Ratio 8.2 (9.0-21.6); Calcium * 8.7 mg/dL (7.9-10.9); Carbon Dioxide 17.9 mmol/L (24-32.6); Potassium 4.3 mmol/L (3.4-4.6)
[2017-06-12] MEDS: DEXTROSE 5%-0.5 NORMAL SALINE 1,000 ML IV PRN ×3 (06:55→14:20)
[2017-06-12] MEDS: ONDANSETRON HCL/PF 2 MG/ML VIAL IV PRN ×2 (07:00→14:12)
[2017-06-12] MEDS: ISOSORBIDE MONONITRATE 30 MG TAB.SR.24H PO SCH (08:22)
[2017-06-12] MEDS: CARVEDILOL 12.5 MG TABLET PO SCH ×2 (08:22→20:56)
[2017-06-12] MEDS: SACCHAROMYCES BOULARDII 250 MG CAPSULE PO SCH ×2 (08:22→20:57)
[2017-06-12] MEDS: LEVOFLOXACIN/D5W 750 MG/150 ML BAG IV SCH (08:31)
--- NOTE | 2017-06-12 09:10 | PN ---
Progess Note - Interim Narrative: 06/12/17 09:08 Review of the patient's MAR reveals that his Plavix was indeed held by Medicine. While this will decrease intraoperative bleeding, this puts him at risk for clotting of his recently placed stent. We will restart this postoperatively based on the recommendation by his field agent. Proceed to the OR today for R below knee amputation. Mamadou Escobar MD
[2017-06-12] MEDS ORDERED: BUPIVACAINE HCL/EPINEPHRINE 50 ML VIAL IJ ONE (10:35)
[2017-06-12] MEDS ORDERED: RINGER'S SOLUTION,LACTATED 1,000 ML IV ONE ×2 (12:05)
--- NOTE | 2017-06-12 13:05 | OR ---
Operative Report - Dictated Report Narrative: Date: 06/12/2017 Surgeon: Mamadou Escobar M.D. Image Archivist: Ty Chadwick PA-C Anesthesia: General plus local anesthetic Preoperative diagnosis: 1. Right foot abscess with osteomyelitis 2. Poorly controlled diabetes mellitus type 2 Postoperative diagnosis: Same Procedure: Right below-knee amputation Estimated blood loss: None Tourniquet time: 82 Minutes at 325 millimeters mercury Specimens: Right lower leg and foot for disposal Complications: None Indications: Mr. Puentes is a 51-year-old male with a history of poorly controlled type 2 diabetes and recurrent diabetic foot ulcers resulting in infection requiring amputation. He is undergone first and second toe amputations on the right and has developed an extensive soft tissue infection of the foot with a large abscess as well as osteomyelitis involving the first and second metatarsals as well as the medial cuneiform. He also has a history of multiple amputations on the left side resulting in a below-knee amputation secondary to wound healing complications of his more distal amputation. The risks, benefits, and treatment options were discussed with the patient and the plan for right below- knee amputation was discussed. Risks were reviewed including , blood clots , nerve/tendon/blood vessel injury, malunion, nonunion, failure of implants, prominent implants, arthrosis, persistent pain, need for additional procedures. Procedure: After a timeout, general anesthetic was induced by the nurse digital ad trafficker without complication. Beanbag and bone foam ramp were utilized in order bump the operative leg and a well-padded tourniquet was applied to the operative thigh. The leg was shaved and pre-scrubbed with chlorhexidine then prepped and draped in a standard sterile fashion. Extremity was gravity exsanguinated and tourniquet was inflated. Our anterior soft tissue flap was marked out approximately 10 cm distal to the tibial tubercle. A fishmouth style incision was marked out with the posterior flap being 1-1/2 times the length of the anterior flap. The skin was incised circumferentially with a sharp knife. Electrocautery was then carried down through the subcutaneous tissues to the level of the fascia circumferentially. The fascia was then incised circumferentially with electrocautery. We first turned our attention to the anterior compartment. Electrocautery was carried down through the muscle and the anterior neurovascular bundle was identified. The artery and vein were clamped and tied off with 2-0 silk ties. The deep peroneal nerve was injected with half percent Marcaine with epinephrine and then sharply divided with a knife. Electrocautery was carried through the remainder of the anterior compartment muscle fibers as well as the peroneal compartment down to the level of the fibula. Next the periosteum was elevated off of the tibia circumferentially and a bone cut was marked out approximately 2 cm proximal to our skin incision. We then elevated the periosteum off of the fibula circumferentially and marked out a bony cut proximally 2 cm proximal to the tibial cut. While protecting the surrounding soft tissues with Homans, the tibial and fibular cuts were made with an oscillating saw. Electrocautery was then carried through the deep and superficial posterior compartments. The posterior tibial artery and vein as well as the tibial nerve were identified and dissected out. The artery and vein were clamped and tied off with 2-0 silk ties. The tibial nerve was then injected with half percent Marcaine with epinephrine and sharply divided with a knife proximally. Electrocautery was carried through the remainder of the superficial and deep posterior compartments and through the proximal aspect of the gastrocnemius aponeurosis and tendon. At this point any excess muscle tissue was debulked to allow a nice tension-free closure. We turned our attention back to the tibia and made a 45 bevel cut and smoothed the bony edges with a rasp. The bony edges of the fibula was also smoothed out with a rasp. Next, four 2.0 mm drill holes were placed in the anterior aspect of the tibia in preparation for myodesis. The gastrocnemius aponeurosis/tendon was sutured in a Krakw fashion with #2 FiberWire resulting in 4 free suture limbs. At this point the tourniquet was let down and hemostasis was obtained with a combination of direct pressure and electrocautery for any active bleeders. No active arterial bleeding was encountered. At this point the tissues were copiously irrigated with normal saline. We then completed our myodesis by bringing the suture limbs through our tibial drill tunnels and tying them. A medium Hemovac drain was placed in the wound deep to the fascia. The wound was then closed in a layered fashion using #1 Vicryl to approximate the anterior and posterior deep fascia. Subcutaneous tissue was closed utilizing interrupted 3-0 Vicryl. The skin was closed utilizing interrupted 3-0 nylon in a horizontal mattress fashion. Xeroflynne, 4 x 4's, soft roll, and Cj wrap was applied. Patient was then awoken and transferred to postanesthesia care in stable condition. All sponge, sharp, and instrument counts were correct prior to closing the wounds.
[2017-06-12] MEDS ORDERED: MORPHINE SULFATE 4 MG/ML SYRG IV ONE (13:24)
[2017-06-12] MEDS ORDERED: PROMETHAZINE HCL 5 MG in DEXTROSE 5 % IN WATER 50 ML IV PRN ×2 (13:25)
[2017-06-12] MEDS ORDERED: ACETAMINOPHEN 500 MG TABLET PO PRN (13:25)
[2017-06-12] MEDS ORDERED: MAGNESIUM HYDROXIDE 30 ML UDC PO PRN (13:25)
[2017-06-12] MEDS ORDERED: oxyCODONE HCL/ACETAMINOPHEN 1 TAB TABLET PO PRN (13:25)
[2017-06-12] MEDS ORDERED: diphenhydrAMINE HCL 50 MG/ML VIAL IV PRN (13:25)
[2017-06-12] MEDS ORDERED: MAG HYDROX/ALUMINUM HYD/SIMETH 30 ML UDC PO PRN (13:25)
[2017-06-12] MEDS ORDERED: MORPHINE SULFATE 4 MG/ML SYRG IV PRN (13:28)
--- NOTE | 2017-06-12 13:30 | PN ---
Progess Note - Interim Narrative: 06/12/17 13:28 Patient tolerated procedure well without complications. Patient will return to Med-Surg under care of Internal Medicine. Recommend continuing abx for at least 24 hrs post op. Recommend restarting Plavix per patient's Special Events Assistant. Will start with oral pain meds with IV for breakthrough. If pain is severe/ uncontrolled, may consider a TIMBER HEWER. Will continue to follow amputation stump for appropriate wound healing. Mamadou Escobar MD
[2017-06-12] MEDS: SERTRALINE HCL 50 MG TABLET PO SCH (14:22)
[2017-06-12] MEDS: CLOPIDOGREL BISULFATE 75 MG TABLET PO SCH (15:24)
[2017-06-12] MEDS: ASPIRIN 325 MG TABLET.DR PO SCH (15:24)
[2017-06-12] MEDS: HYDROmorphone HCL 1 MG/ML DISP.SYRIN IV PRN ×5 (16:04→23:41)
[2017-06-12] MEDS: INSULIN GLARGINE,HUM.REC.ANLOG 100 UNITS/ML VIAL SC SCH (20:56)
[2017-06-12] MEDS: SENNOSIDES/DOCUSATE SODIUM 1 TAB TABLET PO SCH (20:57)
[2017-06-13] MEDS: HYDROmorphone HCL 1 MG/ML DISP.SYRIN IV PRN ×7 (02:02→21:15)
[2017-06-13 02:48] LABS: P-ANCA Titer DNR titer (<1:20)
[2017-06-13] MEDS: oxyCODONE HCL/ACETAMINOPHEN 1 TAB TABLET PO PRN ×5 (04:13→22:12)
[2017-06-13 06:11] LABS: Hematocrit 25.1 % (42.0-52.0); Hemoglobin 8.5 gm/dL (13.5-18.0); Mean Cell Volume 79.7 fl (78-100); Mean Corpuscular Hgb Conc 33.9 g/dl (32-36); Mean Platelet Volume 8.7 fl (6.0-9.5); Neutrophil # 10.4 K/mm3 (1.3-6.0); Neutrophil % 79.3 % (42-75.0); Platelet Count 301 K/mm3 (150-450); Red Blood Count 3.15 M/mm3 (4.7-6.0); White Blood Count 13.1 K/mm3 (4.0-10.5)
[2017-06-13 06:29] LABS: Anion Gap 14.9 mmol/L (6.8-13.8); BUN/Creatinine Ratio 8.7 (9.0-21.6); Calcium * 7.8 mg/dL (7.9-10.9); Carbon Dioxide 18.6 mmol/L (24-32.6); Potassium 4.5 mmol/L (3.4-4.6)
--- NOTE | 2017-06-13 07:05 | PN ---
Subjective - Date and Time Seen Date: 06/13/17 Time: 07:03 Subjective Narrative: Patient seen today in bed denies fever, chills, abdominal pain, diarrhea, numbness or tingling. Pain is well controlled with oral and Iv pain medications. He is S/P right below the knee amputation. Pt requesting to have serum ketones repeat. He anticipating discharge home vs rehab, plan of care discussed with pt he verbalized understanding and agree. Objective - Review of Systems Generalized/Overall Review: Reports: No Symptoms Reported EENTM: Reports: No Symptoms Reported Respiratory: Reports: Cough Cardiac: Reports: No Symptoms Reported Abdominal: Reports: No Symptoms Reported Genitourinary Symptoms: Reports: No Symptoms Reported Musculoskeletal Complaints: Reports: No Symptoms Reported Neurological: Reports: No Symptoms Reported Skin: Reports: No Symptoms Reported Endocrine: Reports: No Symptoms Reported - Vitals Vitals: Last Vital Signs Temp 36.7 C 06/13/17 06:25 Pulse 70 06/13/17 06:25 Resp 16 06/13/17 06:25 BP 140/72 06/13/17 06:25 Pulse Ox 98 06/13/17 06:25 - Abnormal Lab Findings Abnormal Lab Findings: Abnormal Lab Results 06/13/17 06/13/17 Range/Units 05:40 05:40 WBC 13.1 H D (4.0-10.5) K/mm3 RBC 3.15 L (4.7-6.0) M/mm3 Hgb 8.5 L (13.5-18.0) gm/dL Hct 25.1 L (42.0-52.0) % Immature Gran % (Auto) 1.60 H (0.001-0.429) % Immature Gran # (Auto) 0.21 H (0.000-0.0310) K/mm3 Neutrophils % 79.3 H (42-75.0) % Lymphocytes % 11.7 L (20-51) % Neutrophils # 10.4 H (1.3-6.0) K/mm3 Carbon Dioxide 18.6 L (24-32.6) mmol/L Anion Gap 14.9 H (6.8-13.8) mmol/L Creatinine 2.07 H (0.4-1.4) mg/dL Est GFR (Non-Af Amer) 36 L (60-130) mL/min BUN/Creatinine Ratio 8.7 L (9.0-21.6) Random Glucose 228 H D (70-110) mg/dL Calcium 7.8 L (7.9-10.9) mg/dL - Exam Constitutional: Present: Alert, Oriented x3, Cooperative, No distress ENT Exam: Present: normal ENT inspection Neck: Present: full range of motion Respiratory: Present: chest non-tender, no respiratory distress, no accessory muscle use, decreased breath sounds Cardiovascular/Chest: Present: normal peripheral pulses, no chest tenderness, no gallop, no murmur Abdomen: Present: Normal bowel sounds, soft, nontender, nondistended /Rectal: Present: Exam deferred Extremity: Present: other - bilateral BKA Skin Exam: Present: normal color Neurologic: Present: oriented x 3 Appearance: Present: appropriate appearance Eye contact: Present: cooperative Thoughts: Present: normal thought pattern Assessment/Plan Plan Narrative: Diabetic foot ulcer pt is POD#1 S/p 1. Right below the knee amputation secondary to osteomyelitis T1 DM: Poorly controlled. A1c 11.3= 228 mg/dL. Continue with Lantus 45 units SQ at HS. Blood glucose screening before meals. Consistent carb diet with Glucerna Peripheral neuropathy: S/P LT BKA and right BKA. pt had cardiac stents in March Continue with Plavix and aspirin Follow up with director toxicology upon discharge Code status: Full DVT ppx: Lovenox GI ppx: - Problems/Diagnosis (1) Diabetic foot ulcer Problem: Acute (2) Osteomyelitis of right foot Problem: Acute Qualifiers: Osteomyelitis type: unspecified type Qualified Code(s): M86.9 - Osteomyelitis, unspecified (3) Abscess of right foot Problem: Acute (4) Bacteremia Problem: Acute (5) Combined abdominal pain, vomiting, and diarrhea Problem: Resolved
[2017-06-13] MEDS: INSULIN LISPRO 100 UNITS/ML VIAL SC SCH ×6 (07:15→17:38)
[2017-06-13] MEDS: ENOXAPARIN SODIUM 40 MG/0.4 ML SYRG SC SCH (07:22)
[2017-06-13] MEDS: NORMAL SALINE 1,000 ML IV PRN (07:56)
--- NOTE | 2017-06-13 08:15 | PN ---
Subjective - Date and Time Seen Date: 06/13/17 Subjective Narrative: No events overnight. Pain better controlled this am. No other complaints. Objective - Vitals Vitals: Last Vital Signs Temp 36.7 C 06/13/17 06:25 Pulse 70 06/13/17 06:25 Resp 16 06/13/17 06:25 BP 140/72 06/13/17 06:25 Pulse Ox 98 06/13/17 06:25 - Abnormal Lab Findings Abnormal Lab Findings: Abnormal Lab Results 06/13/17 06/13/17 Range/Units 05:40 05:40 WBC 13.1 H D (4.0-10.5) K/mm3 RBC 3.15 L (4.7-6.0) M/mm3 Hgb 8.5 L (13.5-18.0) gm/dL Hct 25.1 L (42.0-52.0) % Immature Gran % (Auto) 1.60 H (0.001-0.429) % Immature Gran # (Auto) 0.21 H (0.000-0.0310) K/mm3 Neutrophils % 79.3 H (42-75.0) % Lymphocytes % 11.7 L (20-51) % Neutrophils # 10.4 H (1.3-6.0) K/mm3 Carbon Dioxide 18.6 L (24-32.6) mmol/L Anion Gap 14.9 H (6.8-13.8) mmol/L Creatinine 2.07 H (0.4-1.4) mg/dL Est GFR (Non-Af Amer) 36 L (60-130) mL/min BUN/Creatinine Ratio 8.7 L (9.0-21.6) Random Glucose 228 H D (70-110) mg/dL Calcium 7.8 L (7.9-10.9) mg/dL - Exam Exam Narrative: Gen: A&Ox3, NAD Resp: breathing non-labored on RA MSK: RLE--> dressings c/d/i, hemovac drain with sanguinous output, stump appropriately tender, able to actively extend knee with good strength Assessment/Plan Plan Narrative: 51 yo M poorly controlled diabetic with extensive R foot infection s/p R BKA, POD #1. - NWB through stump - avoid pillow under knee, keep under stump distally to prevent flexion contracture - oral pain meds with IV for breakthrough - PT/OT - continue Plavix - restart 325 mg ASA - continue drain - continue care per Medicine team - dispo: continue inpatient care
[2017-06-13] MEDS ORDERED: diphenhydrAMINE HCL 50 MG/ML VIAL IV ONE (09:00)
[2017-06-13] MEDS: CARVEDILOL 12.5 MG TABLET PO SCH ×2 (09:21→20:47)
[2017-06-13] MEDS: ISOSORBIDE MONONITRATE 30 MG TAB.SR.24H PO SCH (09:21)
[2017-06-13] MEDS: SACCHAROMYCES BOULARDII 250 MG CAPSULE PO SCH ×2 (09:21→20:47)
[2017-06-13] MEDS: ASPIRIN 325 MG TABLET.DR PO SCH (09:22)
[2017-06-13] MEDS: CLOPIDOGREL BISULFATE 75 MG TABLET PO SCH (09:22)
[2017-06-13] MEDS: SERTRALINE HCL 50 MG TABLET PO SCH (09:28)
[2017-06-13] MEDS: LEVOFLOXACIN/D5W 750 MG/150 ML BAG IV SCH (09:29)
[2017-06-13] MEDS ORDERED: IRON SUCROSE COMPLEX 500 MG in NORMAL SALINE 250 ML IV ONE (09:30)
[2017-06-13] MEDS: SENNOSIDES/DOCUSATE SODIUM 1 TAB TABLET PO SCH (20:42)
[2017-06-13] MEDS ORDERED: INSULIN GLARGINE,HUM.REC.ANLOG 100 UNITS/ML VIAL SC SCH (21:00)
[2017-06-13] MEDS: ONDANSETRON HCL/PF 2 MG/ML VIAL IV PRN (21:12)
[2017-06-14] MEDS: NORMAL SALINE 1,000 ML IV PRN ×2 (01:33→09:06)
[2017-06-14] MEDS: oxyCODONE HCL/ACETAMINOPHEN 1 TAB TABLET PO PRN ×2 (03:44→08:20)
[2017-06-14] MEDS: INSULIN LISPRO 100 UNITS/ML VIAL SC SCH ×6 (06:42→16:49)
[2017-06-14] MEDS: HYDROmorphone HCL 1 MG/ML DISP.SYRIN IV PRN ×3 (06:50→16:28)
[2017-06-14] MEDS: ENOXAPARIN SODIUM 40 MG/0.4 ML SYRG SC SCH (06:50)
--- NOTE | 2017-06-14 06:53 | PN ---
Subjective - Date and Time Seen Date: 06/14/17 Time: 06:39 Subjective Narrative: Patient seen today sitting up in chair AOX3 no acute distress. pt stated his pain is well controlled and BG overnight was 77 and he remain asymptomatic. he denies fever, chills, palpitation or shortness of breath. pt anticipate discharge home with home health. He stated he thought about going to a custodial for rehab therapy, but have now decide he will be better off been at home instead. He already have home health through [facility] and would like to have service resume upon discharge. Plan of care discussed with pt he verbalized understanding and agrees. Objective - Review of Systems Generalized/Overall Review: Reports: No Symptoms Reported EENTM: Reports: No Symptoms Reported Respiratory: Reports: No Symptoms Reported Cardiac: Reports: No Symptoms Reported Abdominal: Reports: No Symptoms Reported Genitourinary Symptoms: Reports: No Symptoms Reported Musculoskeletal Complaints: Reports: Other - Right BKA Neurological: Reports: No Symptoms Reported Skin: Reports: No Symptoms Reported Endocrine: Reports: No Symptoms Reported - Vitals Vitals: Last Vital Signs Temp 37.2 C 06/14/17 02:29 Pulse 82 06/14/17 02:29 Resp 18 06/14/17 02:29 BP 141/59 06/14/17 02:29 Pulse Ox 94 06/14/17 02:29 - Exam Constitutional: Present: Alert, Oriented x3, Cooperative, No distress, Middle aged ENT Exam: Present: normal ENT inspection Neck: Present: full range of motion Breasts: Present: Exam deferred Respiratory: Present: normal breath sounds, no respiratory distress, decreased breath sounds Cardiovascular/Chest: Present: no chest tenderness Abdomen: Present: Normal bowel sounds, soft, nontender, nondistended /Rectal: Present: Exam deferred Extremity: Present: other - Right BKA stump on pillow Skin Exam: Present: normal color, warm/dry, no cyanosis Lymphatic: Present: no adenopathy Neurologic: Present: oriented x 3 Appearance: Present: appropriate appearance Eye contact: Present: cooperative Thoughts: Present: normal thought pattern Assessment/Plan Plan Narrative: Diabetic foot ulcer pt is POD#2 S/p . Right below the knee amputation secondary to osteomyelitis Hemovac intact, monitor drainage T1 DM: Poorly controlled. A1c 11.3 BG over night was 77 mg/dL. Continue with Lantus 35 units SQ at HS. Blood glucose screening before meals. Consistent carb diet with Glucerna Peripheral neuropathy: S/P LT BKA and right BKA. pt had cardiac stents in March Continue with Plavix 75mg and aspirin 325mg daily Follow up with referral management liaison upon discharge Code status: Full DVT ppx: Lovenox GI ppx: pepcid - Problems/Diagnosis (1) Diabetic foot ulcer Problem: Acute (2) Osteomyelitis of right foot Problem: Acute Qualifiers: Osteomyelitis type: unspecified type Qualified Code(s): M86.9 - Osteomyelitis, unspecified (3) Abscess of right foot Problem: Acute (4) Bacteremia Problem: Acute (5) Combined abdominal pain, vomiting, and diarrhea Problem: Resolved
[2017-06-14] MEDS: SACCHAROMYCES BOULARDII 250 MG CAPSULE PO SCH ×2 (08:22→20:43)
[2017-06-14] MEDS: ISOSORBIDE MONONITRATE 30 MG TAB.SR.24H PO SCH (08:22)
[2017-06-14] MEDS: ASPIRIN 325 MG TABLET.DR PO SCH (08:22)
[2017-06-14] MEDS: CARVEDILOL 12.5 MG TABLET PO SCH ×2 (08:22→20:43)
[2017-06-14] MEDS: CLOPIDOGREL BISULFATE 75 MG TABLET PO SCH (08:23)
[2017-06-14] MEDS: SERTRALINE HCL 50 MG TABLET PO SCH (08:23)
[2017-06-14] MEDS: LEVOFLOXACIN/D5W 750 MG/150 ML BAG IV SCH (09:05)
[2017-06-14] MEDS ORDERED: HYDROmorphone HCL 1 MG/ML DISP.SYRIN IV PRN (16:29)
[2017-06-14] MEDS: SENNOSIDES/DOCUSATE SODIUM 1 TAB TABLET PO SCH (20:43)
[2017-06-14] MEDS ORDERED: INSULIN GLARGINE,HUM.REC.ANLOG 100 UNITS/ML VIAL SC SCH (21:00)
[2017-06-14] MEDS ORDERED: GABAPENTIN 300 MG CAPSULE PO SCH (21:00)
[2017-06-14] MEDS: HYDROmorphone HCL 2 MG/ML VIAL IV PRN (22:34)
[2017-06-15] MEDS: HYDROmorphone HCL 2 MG/ML VIAL IV PRN ×6 (01:16→22:24)
[2017-06-15] MEDS: NORMAL SALINE 1,000 ML IV PRN ×3 (04:50→22:11)
[2017-06-15] MEDS: INSULIN LISPRO 100 UNITS/ML VIAL SC SCH ×6 (06:36→17:16)
[2017-06-15] MEDS: ENOXAPARIN SODIUM 40 MG/0.4 ML SYRG SC SCH (06:39)
[2017-06-15] MEDS: ASPIRIN 325 MG TABLET.DR PO SCH (09:27)
[2017-06-15] MEDS: CARVEDILOL 12.5 MG TABLET PO SCH ×2 (09:27→21:00)
[2017-06-15] MEDS: CLOPIDOGREL BISULFATE 75 MG TABLET PO SCH (09:28)
[2017-06-15] MEDS: SERTRALINE HCL 50 MG TABLET PO SCH (09:28)
[2017-06-15] MEDS: ISOSORBIDE MONONITRATE 30 MG TAB.SR.24H PO SCH (09:28)
[2017-06-15] MEDS: LEVOFLOXACIN/D5W 750 MG/150 ML BAG IV SCH (09:28)
[2017-06-15] MEDS: SACCHAROMYCES BOULARDII 250 MG CAPSULE PO SCH ×2 (09:28→21:00)
--- NOTE | 2017-06-15 10:22 | PN ---
Subjective - Date and Time Seen Date: 06/15/17 Time: 10:12 Subjective Narrative: Pt. refused gabapentin as he said it shut down his kidney's in the past. Informed him that he needs to list this or any meds that has adverse effects on his body as an allergy med. He states his pain is ok, isn't needing the dilaudid but every 3-4 hrs. but it is quite painful when he does have pain. No other complaints. He states his able to transfer, but can't ambulate well. States he should be able to do ADL's and get around ok if he has a WC. so will see if WC is available via PT/OT for him to try to use. Informed him he must be able to do full transfers and be independent in order to go home. Objective - Review of Systems Generalized/Overall Review: Reports: No Symptoms Reported EENTM: Reports: No Symptoms Reported Respiratory: Reports: No Symptoms Reported Cardiac: Reports: No Symptoms Reported Abdominal: Reports: No Symptoms Reported Genitourinary Symptoms: Reports: No Symptoms Reported Musculoskeletal Complaints: Reports: Joint Pain Neurological: Reports: No Symptoms Reported Skin: Reports: No Symptoms Reported Endocrine: Reports: No Symptoms Reported - Vitals Vitals: Last Vital Signs Temp 36.0 C L 06/15/17 07:34 Pulse 83 06/15/17 09:54 Resp 18 06/15/17 07:34 BP 170/84 06/15/17 09:54 Pulse Ox 97 06/15/17 07:34 - Exam Constitutional: Present: Alert, Oriented x3, Cooperative, No distress ENT Exam: Present: normal ENT inspection, hearing grossly normal Neck: Present: supple Respiratory: Present: lungs clear, normal breath sounds, no respiratory distress , no accessory muscle use Cardiovascular/Chest: Present: regular rate, rhythm, no murmur Abdomen: Present: Normal bowel sounds, soft, nontender, no hepatospenomegaly Extremity: Present: other - right BKA with clean dry dressing. left bka well healed. Neurologic: Present: normal mood/affect, oriented x 3 Appearance: Present: appropriate appearance, appropriate insight, neat Eye contact: Present: cooperative, good eye contact, normal speech Thoughts: Present: normal thought pattern, no apparent hallucination Assessment/Plan - Problems/Diagnosis (1) S/P BKA (below knee amputation) bilateral Problem: Acute Narrative: rehab per ortho. pt. must be independent in order to go home. (2) Pain Problem: Acute Narrative: appears to be well controlled given how frequently he needs meds. will continue to monitor. d/c gabapentin due to renal issues in past. (3) Osteomyelitis of right foot Problem: Acute Qualifiers: Osteomyelitis type: unspecified type Qualified Code(s): M86.9 - Osteomyelitis, unspecified Narrative: s/p right BKA due to this. sugars improved due to removal of a chronic infection source. 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
[2017-06-15] MEDS: ONDANSETRON HCL/PF 2 MG/ML VIAL IV PRN (15:57)
[2017-06-15] MEDS: SENNOSIDES/DOCUSATE SODIUM 1 TAB TABLET PO SCH (20:58)
[2017-06-15] MEDS ORDERED: INSULIN GLARGINE,HUM.REC.ANLOG 100 UNITS/ML VIAL SC SCH (21:00)
[2017-06-15] MEDS: POLYVINYL ALCOHOL 150 DROP BTL EACHEYE PRN (22:12)
[2017-06-16] MEDS: HYDROmorphone HCL 2 MG/ML VIAL IV PRN ×3 (04:00→15:06)
[2017-06-16] MEDS: NORMAL SALINE 1,000 ML IV PRN ×2 (06:38→16:14)
[2017-06-16] MEDS: INSULIN LISPRO 100 UNITS/ML VIAL SC SCH ×6 (06:38→16:20)
[2017-06-16] MEDS: POLYVINYL ALCOHOL 150 DROP BTL EACHEYE PRN (06:38)
[2017-06-16] MEDS: ENOXAPARIN SODIUM 40 MG/0.4 ML SYRG SC SCH (06:39)
--- NOTE | 2017-06-16 08:57 | PN ---
Subjective - Date and Time Seen Date: 06/16/17 Subjective Narrative: No events overnight. Pain well controlled. Objective - Vitals Vitals: Last Vital Signs Temp 36.7 C 06/16/17 06:42 Pulse 88 06/16/17 06:42 Resp 18 06/16/17 06:42 BP 153/60 06/16/17 06:42 Pulse Ox 95 06/16/17 06:42 - Exam Exam Narrative: Gen: A&Ox3, NAD Resp: breathing non-labored on RA MSK: RLE--> dressings changed today, stump with good color and cap refill, incision without drainage or erythema, appropriately tender and swollen, drain with small amount of serosanguinous drainage Assessment/Plan Plan Narrative: 51 yo M poorly controlled diabetic with extensive R foot infection s/p R BKA, POD #3. - NWB through stump - avoid pillow under knee, keep under stump distally to prevent flexion contracture - oral pain meds with IV for breakthrough - drain removed and dressing changed today - Prosthetics order for stump educational technologist to start tomorrow - PT/OT - continue Plavix and ASA - continue care per Medicine team - dispo: continue inpatient care, once patient obtains stump educational technologist he is ready for discharge from an Orthopedic standpoint
[2017-06-16] MEDS: ASPIRIN 325 MG TABLET.DR PO SCH (09:09)
[2017-06-16] MEDS: CARVEDILOL 12.5 MG TABLET PO SCH ×2 (09:09→20:39)
[2017-06-16] MEDS: SACCHAROMYCES BOULARDII 250 MG CAPSULE PO SCH ×2 (09:09→20:39)
[2017-06-16] MEDS: CLOPIDOGREL BISULFATE 75 MG TABLET PO SCH (09:10)
[2017-06-16] MEDS: ISOSORBIDE MONONITRATE 30 MG TAB.SR.24H PO SCH (09:10)
[2017-06-16] MEDS: LEVOFLOXACIN/D5W 750 MG/150 ML BAG IV SCH (09:10)
[2017-06-16] MEDS: SERTRALINE HCL 50 MG TABLET PO SCH (09:10)
--- NOTE | 2017-06-16 10:49 | PN ---
Subjective - Date and Time Seen Date: 06/16/17 Time: 10:43 Subjective Narrative: He is asleep this am, not easily awakend, but in no distress, snoring. There is no WC in the room. Prosthesis is in room. Sugars continue to run in the 70' s. Objective - Review of Systems Generalized/Overall Review: Reports: No Symptoms Reported EENTM: Reports: No Symptoms Reported Respiratory: Reports: No Symptoms Reported Cardiac: Reports: No Symptoms Reported Abdominal: Reports: No Symptoms Reported Genitourinary Symptoms: Reports: No Symptoms Reported Musculoskeletal Complaints: Reports: Joint Pain Neurological: Reports: No Symptoms Reported Skin: Reports: No Symptoms Reported Endocrine: Reports: No Symptoms Reported - Vitals Vitals: Last Vital Signs Temp 36.7 C 06/16/17 06:42 Pulse 88 06/16/17 09:10 Resp 18 06/16/17 06:42 BP 153/60 06/16/17 09:10 Pulse Ox 95 06/16/17 06:42 - Exam Constitutional: Present: No distress Respiratory: Present: lungs clear, normal breath sounds, no respiratory distress , no accessory muscle use Cardiovascular/Chest: Present: regular rate, rhythm, no murmur Abdomen: Present: Normal bowel sounds, soft, nontender Assessment/Plan - Problems/Diagnosis (1) S/P BKA (below knee amputation) bilateral Problem: Acute Narrative: rehab per ortho. pain appears to be well controlled. 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 (5) HTN (hypertension) Problem: Chronic Qualifiers: Hypertension type: essential hypertension Qualified Code(s): I10 - Essential (primary) hypertension (6) Discharge planning issues Problem: Acute Narrative: Can discharge home when sugars are stable and pt. able to transfer appropriately and ortho ok with discharge. otherwise will start looking for NH placement in the am.
[2017-06-16] MEDS: ONDANSETRON HCL/PF 2 MG/ML VIAL IV PRN ×2 (11:04→22:30)
[2017-06-16] MEDS: SENNOSIDES/DOCUSATE SODIUM 1 TAB TABLET PO SCH (20:38)
[2017-06-16] MEDS: INSULIN GLARGINE,HUM.REC.ANLOG 100 UNITS/ML VIAL SC SCH (20:39)
[2017-06-17] MEDS: NORMAL SALINE 1,000 ML IV PRN (00:18)
[2017-06-17] MEDS: INSULIN LISPRO 100 UNITS/ML VIAL SC SCH ×6 (06:35→17:25)
[2017-06-17] MEDS: ENOXAPARIN SODIUM 40 MG/0.4 ML SYRG SC SCH (06:36)
[2017-06-17] MEDS: ONDANSETRON HCL/PF 2 MG/ML VIAL IV PRN (06:38)
[2017-06-17] MEDS: oxyCODONE HCL/ACETAMINOPHEN 1 TAB TABLET PO PRN ×4 (06:38→20:05)
[2017-06-17] MEDS ORDERED: ONDANSETRON HCL 4 MG TABLET PO PRN (08:07)
[2017-06-17] MEDS ORDERED: ONDANSETRON HCL 8 MG TABLET PO PRN (08:07)
[2017-06-17 08:21] LABS: Mean Corpuscular Hemoglobin 26.8 pg (27-31); Mean Corpuscular Hgb Conc 33.1 g/dl (32-36); Mean Platelet Volume 7.8 fl (6.0-9.5); Neutrophil # 6.1 K/mm3 (1.3-6.0); Neutrophil % 63.3 % (42-75.0); Platelet Count 442 K/mm3 (150-450); Red Blood Count 2.95 M/mm3 (4.7-6.0); Red Cell Distribution Width 14.6 % (11.5-14.0); White Blood Count 9.7 K/mm3 (4.0-10.5)
[2017-06-17 08:22] LABS: Hematocrit 24.2 % (42.0-52.0)
[2017-06-17 08:36] LABS: Albumin * 1.8 gm/dl (3.4-5.0); Anion Gap 13.3 mmol/L (6.8-13.8); BUN/Creatinine Ratio 5.9 (9.0-21.6); Bilirubin, Total 0.3 mg/dL (0.0-1.1); Ca. Corrected For Albumin 9.4 mg/dL (8.4-10.2); Carbon Dioxide 24.5 mmol/L (24-32.6); Potassium 3.8 mmol/L (3.4-4.6); Total Protein 6.5 gm/dL (6.2-8.2)
[2017-06-17] MEDS: ASPIRIN 325 MG TABLET.DR PO SCH (08:41)
[2017-06-17] MEDS: CARVEDILOL 12.5 MG TABLET PO SCH ×2 (08:41→20:07)
[2017-06-17] MEDS: SERTRALINE HCL 50 MG TABLET PO SCH (08:42)
[2017-06-17] MEDS: CLOPIDOGREL BISULFATE 75 MG TABLET PO SCH (08:42)
[2017-06-17] MEDS: SACCHAROMYCES BOULARDII 250 MG CAPSULE PO SCH ×2 (08:42→20:06)
[2017-06-17] MEDS: ISOSORBIDE MONONITRATE 30 MG TAB.SR.24H PO SCH (08:42)
[2017-06-17] MEDS: LEVOFLOXACIN/D5W 750 MG/150 ML BAG IV SCH (08:42)
[2017-06-17] MEDS: METOCLOPRAMIDE HCL 5 MG TABLET PO SCH ×3 (08:43→17:25)
--- NOTE | 2017-06-17 09:16 | PN ---
Subjective - Date and Time Seen Date: 06/17/17 Subjective Narrative: No events overnight. Pain well controlled. Objective - Vitals Vitals: Last Vital Signs Temp 36.8 C 06/17/17 06:44 Pulse 68 06/17/17 08:42 Resp 18 06/17/17 06:44 BP 164/62 06/17/17 08:42 Pulse Ox 96 06/17/17 06:44 - Abnormal Lab Findings Abnormal Lab Findings: Abnormal Lab Results 06/17/17 06/17/17 Range/Units 08:15 08:15 RBC 2.95 L (4.7-6.0) M/mm3 Hgb 8.0 L (13.5-18.0) gm/dL Hct 24.2 L (42.0-52.0) % MCH 26.8 L (27-31) pg RDW 14.6 H (11.5-14.0) % Immature Gran % (Auto) 3.90 H (0.001-0.429) % Immature Gran # (Auto) 0.38 H (0.000-0.0310) K/mm3 Neutrophils # 6.1 H (1.3-6.0) K/mm3 Sodium 143 H (132-142) mmol/L Plasma Sodium 143 H (130-142) mmol/L Chloride 109 H (97-106) mmol/L Creatinine 2.02 H (0.4-1.4) mg/dL Est GFR (Non-Af Amer) 37 L (60-130) mL/min BUN/Creatinine Ratio 5.9 L (9.0-21.6) Random Glucose 116 H (70-110) mg/dL Albumin 1.8 L (3.4-5.0) gm/dl - Exam Exam Narrative: MSK: RLE--> dressings c/d/i, appropriate tenderness, lacking 5 deg full extension, flexion 110 deg limited by some pain Assessment/Plan Plan Narrative: 51 yo M poorly controlled diabetic with extensive R foot infection s/p R BKA, POD #5. - NWB through stump - avoid pillow under knee, keep under stump distally to prevent flexion contracture - oral pain meds with IV for breakthrough - Prosthetics to fit stump aboriginal community council member today - PT/OT - continue Plavix and ASA - continue care per Medicine team - dispo: continue inpatient care, once patient obtains stump aboriginal community council member he is ready for discharge from an Orthopedic standpoint Orthopedic Discharge Instructions: 1. NWB through stump, no pillows behind knee to prevent flexion contracture. 2. Dressing changes daily with 4x4 gauze and stump aboriginal community council member. 3. Keep wound completely dry until follow up. Sponge baths only. 4. Oral pain meds. 5. Continue Plavix and ASA per Cardiology recs. 6. Follow up in Ortho clinic in 2 weeks ([phone]). Mamadou Escobar MD
--- NOTE | 2017-06-17 18:38 | PN ---
Subjective Subjective Narrative: C/O nausea on and off for the last 2 years. Pain well-controlled on IV hydromorphone. No diarrhea/pain RLL over the weekend. Worked with PT and is able to pivot from bed to commode and wheelchair. Still on IV fluids/ antibiotics. Patient would like to have wheelchair prior to going home/NH Objective - Review of Systems Generalized/Overall Review: Denies: Weakness, Chills, Fever Respiratory: Denies: Cough, Shortness of Breath Cardiac: Denies: Chest Pain, Edema Abdominal: Reports: Nausea. Denies: Diarrhea Musculoskeletal Complaints: Denies: Joint Pain, Back Pain - Vitals Vitals: Last Vital Signs Temp 36.8 C 06/17/17 15:21 Pulse 78 06/17/17 15:21 Resp 20 06/17/17 15:21 BP 130/86 06/17/17 15:21 Pulse Ox 98 06/17/17 15:21 - Abnormal Lab Findings Abnormal Lab Findings: Laboratory Tests 06/17/17 08:15 WBC 9.7 Hgb 8.0 L Hct 24.2 L Plt Count 442 06/17/17 08:15 Plasma Sodium 143 H Potassium 3.8 Chloride 109 H Carbon Dioxide 24.5 BUN 12 Creatinine 2.02 H Est GFR (Non-Af Amer) 37 L Random Glucose 116 H Calcium Adj for Albumin 9.4 AST 24 ALT 19 Alkaline Phosphatase 113 Total Protein 6.5 Albumin 1.8 L 06/08/17 04:40 S.cerevisiae IgG Ab 52.0 H S.cerevisiae IgA Ab 149.1 H - Exam Constitutional: Present: Middle aged, Looks Older than stated age - alert and oriented x3, in NAD ENT Exam: Present: hearing grossly normal, moist mucous membranes Neck: Present: normal inspection, trachea midline Respiratory: Present: normal breath sounds, no respiratory distress, no accessory muscle use Cardiovascular/Chest: Present: regular rate, rhythm. Absent: tachycardia Abdomen: Present: Normal bowel sounds, soft, nontender, obese Extremity: Present: other - RT BKA; prior LT BKA Skin Exam: Present: warm/dry, pallor Eye contact: Present: cooperative, good eye contact, normal speech Assessment/Plan Plan Narrative: 1. RT BKA: POD #5: Plans per Dr. Escobar [orthopedics]. D/C Hydromorphine IV. Change to PO pain medication. D/C levofloxacin. D/C IV fluids. 2. Persistent nausea: For the last 2 years; this could be due to gastroparesis. Start patient empirically on metoclopramide 5 mg PO AC. Nursing was informed. Use ondansetron sparingly. 3. HTN: Patient's BP currently on the higher side at 150/70. Add amlodipine 2.5 mg at bedtime. 4. CAD: H/O stent placement at [facility]. On aspirin and Plavix continue same. 5. Right lower quadrant pain: Possible ileitis seen on CT scan. heme positive stools. GI referral on outpatient basis. 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
[2017-06-17] MEDS ORDERED: CARVEDILOL 6.25 MG TABLET ONE (20:04)
[2017-06-17] MEDS: SENNOSIDES/DOCUSATE SODIUM 1 TAB TABLET PO SCH (20:06)
[2017-06-17] MEDS: INSULIN GLARGINE,HUM.REC.ANLOG 100 UNITS/ML VIAL SC SCH (20:09)
[2017-06-17] MEDS ORDERED: amLODIPine BESYLATE 5 MG TABLET PO SCH (21:00)
[2017-06-18] MEDS: ENOXAPARIN SODIUM 40 MG/0.4 ML SYRG SC SCH (06:37)
[2017-06-18] MEDS: INSULIN LISPRO 100 UNITS/ML VIAL SC SCH ×4 (06:37→11:49)
[2017-06-18] MEDS: METOCLOPRAMIDE HCL 5 MG TABLET PO SCH ×2 (06:38→11:47)
[2017-06-18 06:47] VITALS: BP 161/73
[2017-06-18] MEDS: oxyCODONE HCL/ACETAMINOPHEN 1 TAB TABLET PO PRN (07:58)
[2017-06-18] MEDS: ASPIRIN 325 MG TABLET.DR PO SCH (09:01)
[2017-06-18] MEDS: SACCHAROMYCES BOULARDII 250 MG CAPSULE PO SCH (09:01)
[2017-06-18] MEDS: CARVEDILOL 12.5 MG TABLET PO SCH (09:01)
[2017-06-18] MEDS: SERTRALINE HCL 50 MG TABLET PO SCH (09:02)
[2017-06-18] MEDS: ISOSORBIDE MONONITRATE 30 MG TAB.SR.24H PO SCH (09:02)
[2017-06-18] MEDS: CLOPIDOGREL BISULFATE 75 MG TABLET PO SCH (09:02)
--- NOTE | 2017-06-18 10:14 | DS ---
(1) NATALEE (acute kidney injury) Problem: Acute (2) Abdominal pain Problem: Acute Qualifiers: Abdominal location: right lower quadrant Qualified Code(s): R10.31 - Right lower quadrant pain (3) Abscess of right foot Problem: Acute (4) Acute kidney injury Problem: Acute (5) S/P BKA (below knee amputation) bilateral Problem: Acute (6) Bacteremia Problem: Acute (7) Cellulitis Problem: Acute Qualifiers: Site of cellulitis: extremity Site of cellulitis of extremity: lower extremity Laterality: right Qualified Code(s): L03.115 - Cellulitis of right lower limb (8) Diabetic foot ulcer Problem: Acute (9) Pain Problem: Acute (10) CHF (congestive heart failure) Problem: Chronic (11) Diabetes Problem: Chronic Qualifiers: Diabetes mellitus type: type 2 (12) Combined abdominal pain, vomiting, and diarrhea Problem: Resolved Description of Stay: Date of admission: 06/07/17 Date of discharge: 06/18/17 Radiology: Abdominal xray (06/07/17) 1. Nonobstructive bowel gas pattern. CT abdomen / pelvis (06/08/17) 1. Questionable punctate intrarenal calcifications as discussed above without evidence for obstructive uropathy. 2. Short segment of bowel wall prominence of the terminal ileum without definite surrounding inflammatory changes. Probably artifactual and may be related to peristalsis but consider possible terminal ileitis given history of right lower quadrant abdominal pain. 3. Mildly enlarged right external iliac, right groin/femoral lymph nodes, nonspecific. Consider reactive lymphadenopathy versus neoplasm. 4. Hepatomegaly with fatty infiltration of liver. Right foot xray (06/09/17) 1. Patient status post amputation of the first and second digits, with interval development of exuberant mineralized callus overlying the remainder of the first metatarsal bone which is somewhat indeterminate. Periostitis ossified callus could be related to a healing osteotomy, versus chronic osteomyelitis and clinical correlation is advised. 2. Soft tissue swelling is seen at the second and third toe amputation stumps. Focus of gas seen at the distal end of the remainder of the first digit, could represent ulceration versus soft tissue gas. Correlate clinically for crepitus/gangrene. Lisfranc joint grossly intact. Right lower extremity MRI (06/10/17) 1. Findings consistent with osteomyelitis within the remaining first metatarsal remnant and extending across the first tarsometatarsal joint to involve the medial cuneiform. There is a small amount of fluid within the first tarsometatarsal joint. 2. Osteomyelitis of the second metatarsal head with persistent peripherally enhancing fluid collection circumferentially surrounding the second metatarsal with the largest portion of the collection along its dorsal aspect. The fluid collection appears to be draining from both the plantar and dorsal skin surfaces. 3. Heterogeneous marrow signal throughout the proximal second metatarsal shaft with minimal postcontrast enhancement. This is new from the prior exam and may relate to a bone infarct versus osteomyelitis. Chest xray (06/11/17) Low lung volumes with bronchovascular crowding and bilateral perihilar and bibasilar heterogeneous opacities, likely subsegmental atelectasis. No consolidation. Consults: 1. Dr. Zeng - Podiatry 2. Dr. Escobar - Orthopaedics Description of Stay: Magdaleno Dominguez is a 51 year old male who was admitted with diarrhea and abdominal pain. patient was previously on an antibiotic at [facility] 1 month ago. temp on admission 39.1. CT of the abdomen / pelvis was unremarkable despite elevated WBC. patient was also found to have diabetic foot wound on his right foot with tunneling present for the past 7 days. started on vanco iv and IV fluids. c diff checked and was negative. ESR 113, crp 23. Patient then subsequently started on zosyn iv and florastar. MRI ordered. diarrhea continued. lomotil ordered and stool cultured pending. right foot wound debrided by Dr. Zeng at bedside. MRI then shows findings c/w osteomyelitis. orthopaedics was consulted. patient underwent a right BKA on 06/12/[address] Escobar. post op, continued pain management on right stump and work on placement as the patient healed. as time progressed, patient was able to transfer self to wheelchair. during course of stay, patient developed RLQ abdominal pain. IBD panel positive , S. cerevisiae IgG an IgA - patient to follow up with GI outpatient. patient improved with his mobility and was able to be discharged home with a wheelchair and home health care. Procedures Performed: none List Procedures: right below the knee amputation by Dr Escobar on 06/12/17 Discharge Disposition: Home self care Disposition: Home self-care Condition: Undetermined Discharge Activity: Activity as tolerated Discharge Diet: Consistent carbs Referrals: Carey,Annika, PA [Primary Care Provider] - Problem Oriented Discharge Instructions to Patient/Family: Stump and Prosthesis Care, Living With an Amputation, Phantom Limb Pain, How to Use a Wheelchair Additional Patient Instructions (free text): Fax discharge orders and info to [facility]. Call [facility] with report at discharge. Orthopedics follow up appt on Friday at 10:15am. Dr Chandra Internal Medicine follow up appt on FridayJun 25 at 3:00pm. Dr Andres Gastroenterology appt. at [facility] on Jun 26 at 1:10pm. New Medications: Norvasc 5 mg po at bedtime Aspirin 325 mg by mouth daily (OTC) Novolog insulin 3 units subcutaneus 3 times a day with meals lantus 20 units subcutaneus daily at bedtime Senna tabs, 2 tabs by mouth daily at bedtime while taking percocet. (OTC) Vitamin D3 2000 units by mouth daily (OTC) Percocet 5/325 mg tabs; 1-2 by mouth every 4 hours as needed for pain (hold for nausea or if medications makes you too sleepy) Stop these medications: 1. Trulicity 2. Lasix 3. Potassium chloride tabs 4. Ultram Prescriptions (Any new or edited meds): amLODIPine BESYLATE [Norvasc] 5 mg PO DAILY@2100 #30 tablet Cholecalciferol (Vitamin D3) [Vitamin D3] 2,000 unit PO DAILY #30 capsule Insulin Lispro [Humalog] 3 units SC ACINS #1 vial oxyCODONE HCL/ACETAMINOPHEN [Percocet 5 MG/325 MG] 1 - 2 tab PO Q4H PRN #90 tablet PRN Reason: Moderate Pain Complete Home Medications List: Complete Home Medication List: Atorvastatin Calcium [Lipitor] 10 mg PO HS 04/24/17 Carvedilol [Coreg] 12.5 mg PO BID 04/24/17 Isosorbide Mononitrate [Imdur] 30 mg PO DAILY 04/24/17 Nitroglycerin [Nitrostat] 0.4 mg SL Q5MIN PRN 04/24/17 Ondansetron [Zofran Odt] 8 mg PO Q6H PRN #100 tab.rapdis 04/25/17 Aspirin [Aspirin Enteric Coated] 325 mg PO DAILY tablet. 06/18/17 Cholecalciferol (Vitamin D3) [Vitamin D3] 2,000 unit PO DAILY #30 capsule Clopidogrel Bisulfate [Plavix] 75 mg PO DAILY tablet 06/18/17 Insulin Glargine,Hum.rec.anlog [Lantus] 20 units SC HS vial 06/18/17 Insulin Lispro [Humalog] 3 units SC ACINS #1 vial 06/18/17 Sennosides/Docusate Sodium [Senokot-S] 2 tab PO HS tablet 06/18/17 Sertraline HCl [Zoloft] 50 mg PO DAILY tablet 06/18/17 amLODIPine BESYLATE [Norvasc] 5 mg PO DAILY@2100 #30 tablet 06/18/17 oxyCODONE HCL/ACETAMINOPHEN [Percocet 5 MG/325 MG] 1 - 2 tab PO Q4H PRN #90 tablet 06/18/17
== END 2017-06-18 13:29 | disposition home health service (06) | DRG 617 ==
LOC: ER 20:31 → OBSVTOIN 06-08 00:20 → MS 06-08 00:20 → INTOOBSV 06-08 00:20
PROVIDERS: ADMIT Nurse Practitioner; ATTEND Internal Medicine
PROC: 4A033R1 Measurement of Arterial Saturation, Peripheral, Percutaneous Approach (ICD-10-PCS; 2017-06-08)
PROC: 0JBQ0ZZ Excision of Right Foot Subcutaneous Tissue and Fascia, Open Approach (ICD-10-PCS; principal; 2017-06-09)
PROC: 0Y6H0Z3 Detachment at Right Lower Leg, Low, Open Approach (ICD-10-PCS; 2017-06-12)
DX: E11.621 Type 2 diabetes mellitus with foot ulcer (principal); L03.115 Cellulitis of right lower limb; L97.412 Non-pressure chronic ulcer of right heel and midfoot with fat layer exposed; R78.81 Bacteremia; N17.9 Acute kidney failure, unspecified; R10.31 Right lower quadrant pain; J44.9 Chronic obstructive pulmonary disease, unspecified; I10 Essential (primary) hypertension; I25.10 Atherosclerotic heart disease of native coronary artery without angina pectoris; Z95.5 Presence of coronary angioplasty implant and graft; Z86.73 Personal history of transient ischemic attack (TIA), and cerebral infarction without residual deficits; Z79.02 Long term (current) use of antithrombotics/antiplatelets
CPT/HCPCS: 10060; 27880; 36415; 36600; 71010; 73630; 73720; 74020; 74176; 80048; 80053; 81001; 82009; 82150; 82272; 82607; 82803; 83036; 83540; 83550; 83605; 83690; 83735; 84100; 84484; 85025; 85610; 85652; 85730; 86021; 86140; 86671; 86850; 86900; 87040; 87045; 87046; 87070; 87077; 87081; 87086; 87186; 87493; 89055; 93005; 96365; 96375; 97110; 97162; 97165; 97530; 99285; J1756; J2405